=== PATIENT | female | born 1935 | race Two or more races ===

== ENCOUNTER 2019-07-25 12:01 | Inpatient (IN) | payer MEDICARE ==
--- NOTE | 2019-07-25 12:35 | ED ---
General Adult HPI - General Chief complaint: Extremity Injury, Lower Stated complaint: LE pain Time Seen by Provider: 07/25/19 12:01 Source: patient, RN notes reviewed Mode of arrival: ambulatory Limitations: no limitations - History of Present Illness Initial comments: This 84-year-old female with a history of multiple medical issues including hypertension congestive heart failure diabetes chronic A. fib without blood thinners hypothyroidism schizophrenia obesity anemia who was found at about 8:00 this morning have a cold left lower extremity. She was to be treated as a no code and no hospitalization with family requested that she be sent in for evaluation. Patient states the pain and events as he started last evening some time. The patient denies any fevers chills nausea vomiting sweats she does have 3/10 pain in the left lower extremity. She was found per paramedics to have cold skin from the knee down to the toes with mottled appearance of the skin. The right lower extremity is warm with full movement and pulses. There is a staff did discuss the events with the patient's who has requested that she be evaluated. I did discuss this with both Dr. Arellano and Dr. Ordoñez. The initial plan will be for a CT angio of the left lower extremity is questionable whether the patient is a candidate for surgical intervention at this time. - Related Data Home Medications Medication Instructions Recorded Confirmed ARIPiprazole [Abilify] 2 mg PO DAILY@0800 07/25/19 07/25/19 ARIPiprazole [Abilify] 5 mg PO DAILY@0800 07/25/19 07/25/19 Acetaminophen Tab [Tylenol Tab] 500 mg PO BID PRN 07/25/19 07/25/19 Artificial Tears-Hypromellose 1 drop BOTH EYES TID@0800,1200,1700 07/25/19 07/25/19 [Artificial Tear Drops] Bisacodyl [Dulcolax] 10 mg RECTAL DAILY PRN 07/25/19 07/25/19 Ergocalciferol (Vitamin D2) 50,000 unit PO Q14D 07/25/19 07/25/19 [Drisdol] Furosemide [Lasix] 40 mg PO BID@0800,1700 07/25/19 07/25/19 L.acidoph,Paracasei, B.lactis 1 cap PO DAILY@0800 07/25/19 07/25/19 [Probiotic] Levothyroxine Sodium 125 mcg PO DAILY@0800 07/25/19 07/25/19 Loratadine 10 mg PO DAILY@0800 07/25/19 07/25/19 Magnesium Hydroxide [Milk of 7,200 mg PO Q48H PRN 07/25/19 07/25/19 Magnesia Concentrate] Metoprolol Tartrate [Lopressor] 50 mg PO BID@0800,1700 07/25/19 07/25/19 Na Phos,M-B/Na Phos,Di-Ba [Fleet 133 ml RECTAL DAILY PRN 07/25/19 07/25/19 Adult] Olopatadine HCl [Patanol] 1 drop BOTH EYES BID@0800,1700 07/25/19 07/25/19 Oyster Shell Calcium 500mg 500 mg PO DAILY@0800 07/25/19 07/25/19 Potassium Chloride 10 meq PO DAILY@0800 07/25/19 07/25/19 Allergies Allergy/AdvReac Type Severity Reaction Status Date / Time erythromycin base Allergy Unknown Verified 07/25/19 12:45 [From Erythrocin] levofloxacin [From Levaquin] Allergy Unknown Verified 07/25/19 12:45 Penicillins Allergy Unknown Verified 07/25/19 12:45 Review of Systems ROS Statement: Those systems with pertinent positive or pertinent negative responses have been documented in the HPI. ROS Other: All systems not noted in ROS Statement are negative. Past Medical History Past Medical History: Heart Failure, COPD, Dementia, Hypertension, Thyroid Disorder History of Any Multi-Drug Resistant Organisms: MRSA Date of last positivie culture/infection: 10/10/16 MDRO Source:: back Past Surgical History: Joint Replacement Additional Past Surgical History / Comment(s): R hip Smoking Status: Never smoker Past Alcohol Use History: None Reported Past Drug Use History: None Reported General Exam - General Exam Comments Initial Comments: This is a well-developed obese female who is awake alert oriented 3 Limitations: no limitations General appearance: alert, in no apparent distress Head exam: Present: atraumatic, normocephalic, normal inspection Eye exam: Present: normal appearance, PERRL, EOMI. Absent: scleral icterus, conjunctival injection, periorbital swelling ENT exam: Present: normal exam, mucous membranes moist Neck exam: Present: normal inspection, full ROM, other (No stridor JVD or bruits). Absent: tenderness, meningismus, lymphadenopathy Respiratory exam: Present: normal lung sounds bilaterally. Absent: respiratory distress, wheezes, rales, rhonchi, stridor Cardiovascular Exam: Present: irregular rhythm. Absent: systolic murmur, diastolic murmur, rubs, gallop, clicks GI/Abdominal exam: Present: soft, normal bowel sounds. Absent: distended, tenderness, guarding, rebound, rigid Extremities exam: Present: tenderness, other (Capillary refill in the left lower extremity no pulses are palpable or obtained with Doppler. Is a thready femoral pulse on the left. Skin is mottled and cold to touch from just above the knee down to the toes. Toes are dusky.). Absent: pedal edema, joint swelling, calf tenderness Back exam: Present: normal inspection Neurological exam: Present: alert, oriented X3, CN II-XII intact Psychiatric exam: Present: normal affect, normal mood Skin exam: Present: warm, dry, intact, normal color. Absent: rash Course Vital Signs 07/25/19 12:05 Temperature 98.7 F Pulse Rate 100 Respiratory 18 Rate Blood Pressure 180/122 O2 Sat by Pulse 95 Oximetry - Reevaluation(s) Reevaluation #1: 07/25/19 14:26 The patient was seen in the emergency department by Dr. Ordoñez. CAT scan does show evidence of a left iliac occlusion. He did discuss the case with family members. Patient will be taken the operating room for an embolectomy. Dr. Arellano will be notified EKG Findings - EKG Results: EKG: interpreted by CHAYO (Atrial fibrillation rate of 95 QRS 82 QT since QTC 318/[address] configuration) Medical Decision Making - Lab Data Result diagrams: 07/25/19 12:21 07/25/19 12:21 Lab Results 07/25/19 07/25/19 07/25/19 Range/Units 12:21 12:21 12:21 WBC 9.8 (3.8-10.6) k/uL RBC 5.12 (3.80-5.40) m/uL Hgb 14.7 (11.4-16.0) gm/dL Hct 46.5 H (34.0-46.0) % MCV 90.8 (80.0-100.0) fL MCH 28.8 (25.0-35.0) pg MCHC 31.7 (31.0-37.0) g/dL RDW 13.6 (11.5-15.5) % Plt Count 197 (150-450) k/uL Neutrophils % 89 % Lymphocytes % 6 % Monocytes % 4 % Eosinophils % 0 % Basophils % 0 % Neutrophils # 8.8 H (1.3-7.7) k/uL Lymphocytes # 0.6 L (1.0-4.8) k/uL Monocytes # 0.3 (0-1.0) k/uL Eosinophils # 0.0 (0-0.7) k/uL Basophils # 0.0 (0-0.2) k/uL Sodium 138 (137-145) mmol/L Potassium 4.6 (3.5-5.1) mmol/L Chloride 95 L (98-107) mmol/L Carbon Dioxide 35 H (22-30) mmol/L Anion Gap 8 mmol/L BUN 22 H (7-17) mg/dL Creatinine 0.96 (0.52-1.04) mg/dL Est GFR (CKD-EPI)AfAm 64 (>60 ml/min/1.73 sqM) Est GFR (CKD-EPI)NonAf 55 (>60 ml/min/1.73 sqM) Glucose 140 H (74-99) mg/dL Plasma Lactic Acid Fletcher (0.7-2.0) mmol/L Calcium 9.3 (8.4-10.2) mg/dL Magnesium 2.3 (1.6-2.3) mg/dL Total Bilirubin 0.7 (0.2-1.3) mg/dL AST 47 H (14-36) U/L ALT 21 (4-34) U/L Alkaline Phosphatase 104 (38-126) U/L NT-Pro-B Natriuret Pep 3510 pg/mL Total Protein 7.1 (6.3-8.2) g/dL Albumin 4.0 (3.5-5.0) g/dL 07/25/19 Range/Units 12:21 WBC (3.8-10.6) k/uL RBC (3.80-5.40) m/uL Hgb (11.4-16.0) gm/dL Hct (34.0-46.0) % MCV (80.0-100.0) fL MCH (25.0-35.0) pg MCHC (31.0-37.0) g/dL RDW (11.5-15.5) % Plt Count (150-450) k/uL Neutrophils % % Lymphocytes % % Monocytes % % Eosinophils % % Basophils % % Neutrophils # (1.3-7.7) k/uL Lymphocytes # (1.0-4.8) k/uL Monocytes # (0-1.0) k/uL Eosinophils # (0-0.7) k/uL Basophils # (0-0.2) k/uL Sodium (137-145) mmol/L Potassium (3.5-5.1) mmol/L Chloride (98-107) mmol/L Carbon Dioxide (22-30) mmol/L Anion Gap mmol/L BUN (7-17) mg/dL Creatinine (0.52-1.04) mg/dL Est GFR (CKD-EPI)AfAm (>60 ml/min/1.73 sqM) Est GFR (CKD-EPI)NonAf (>60 ml/min/1.73 sqM) Glucose (74-99) mg/dL Plasma Lactic Acid Fletcher 2.1 H* (0.7-2.0) mmol/L Calcium (8.4-10.2) mg/dL Magnesium (1.6-2.3) mg/dL Total Bilirubin (0.2-1.3) mg/dL AST (14-36) U/L ALT (4-34) U/L Alkaline Phosphatase (38-126) U/L NT-Pro-B Natriuret Pep pg/mL Total Protein (6.3-8.2) g/dL Albumin (3.5-5.0) g/dL Critical Care Time Critical Care Time: Yes Critical Care Time: 45 minutes of critical care time which includes initial presentation with history physical labs x-rays review of old charting is available discussed with Dr. Ordoñez as well as Dr. Arellano multiple reevaluation is of the patient. Some admission orders documentation of the above Disposition Clinical Impression: Iliac artery occlusion, left, Dehydration, Hypertension, Chronic atrial fibrillation Disposition: ADMITTED IP TO THIS [facility] Condition: Serious Referrals: Miky Arellano MD [Primary Care Provider] - 1-2 days
[2019-07-25] MEDS ORDERED: RX INFO: IV CONTRAST WAS GIVEN 1 EACH MISC MISCELLANE PRN (12:41)
[2019-07-25 12:48] LABS: Basophils % (A) 0 %; Eosinophils % (A) 0 %; HCT 46.5 % (34.0-46.0); HGB 14.7 gm/dL (11.4-16.0); Lymphocytes # (A) 0.6 k/uL (1.0-4.8); Lymphocytes % (A) 6 %; MCH 28.8 pg (25.0-35.0); MCHC 31.7 g/dL (31.0-37.0); MCV 90.8 fL (80.0-100.0); Mean Platelet Volume 10.1; Monocytes # (A) 0.3 k/uL (0-1.0); Monocytes % (A) 4 %; Neutrophils # (A) 8.8 k/uL (1.3-7.7); Neutrophils % (A) 89 %; Platelet Count 197 k/uL (150-450); RBC 5.12 m/uL (3.80-5.40); RDW 13.6 % (11.5-15.5); WBC 9.8 k/uL (3.8-10.6)
[2019-07-25 12:54] LABS: Calcium 9.3 mg/dL (8.4-10.2); Magnesium 2.3 mg/dL (1.6-2.3); Potassium 4.6 mmol/L (3.5-5.1); Total Bilirubin 0.7 mg/dL (0.2-1.3); Total Protein 7.1 g/dL (6.3-8.2)
[2019-07-25] MEDS ORDERED: SODIUM CHLORIDE 0.9% 1,000 ML IV STA (14:13)
[2019-07-25] MEDS ORDERED: SODIUM CHLORIDE 0.9% 500 ML 500 ML IV STA (14:25)
[2019-07-25] MEDS ORDERED: NALOXONE 0.4 MG/ML 1 ML VIAL IV PRN (14:31)
[2019-07-25] MEDS ORDERED: LACTATED RINGERS 1,000 ML IV ONE (14:36)
[2019-07-25] MEDS ORDERED: VANCOMYCIN 1,750 MG in SODIUM CHLORIDE 0.9% 500 ML 500 ML IVPB STA (14:41)
[2019-07-25] MEDS ORDERED: METOPROLOL TARTRATE 5 MG/5 ML VIAL IVP STA (14:55)
--- NOTE | 2019-07-25 15:07 | CT ---
EXAMINATION TYPE: CT angio lower extremity LT DATE OF EXAM: 07/25/2019 COMPARISON: HISTORY: Left lower extremity, cold and mottled CT DLP: 3213.9 mGycm Automated exposure control for dose reduction was used. CONTRAST: Performed with IV Contrast, patient injected with 100 mL of Isovue 370. Multiple axial sections were obtained from the level of the iliac crest to the bottom of the feet wit hout and subsequently with intravenous contrast. There are 3-D post processed images. There is arterial flow demonstrated in the lower abdominal aorta which has fairly normal diameter. Th ere is complete occlusion of the left proximal common iliac artery with thrombus. There is patency of the right internal and external iliac artery and right common iliac artery. There is right-sided pat ency of the femoral artery and popliteal artery. There is plaque formation focally in the right femor al artery with 50% stenosis. There is right-sided patency of the tibial artery and the tibial artery trifurcation. There is variable plaque in the right posterior tibial artery. There is arterial flow i n the dorsalis pedis artery on the right side as well as the right posterior tibial artery at the oswaldo t. Exam does not show any significant arterial flow in the left leg below the hip joint. There is left knee prosthesis that appears in good position. I see no focal bone destruction. There i s no evidence of a soft tissue mass. There is sigmoid diverticulosis without evidence of diverticulitis. There is no free fluid in the pel vis. Bladder distends smoothly. There is no evidence of a pelvic mass. There is vertebroplasty of the L5 vertebral body. IMPRESSION: Complete occlusion of the left common iliac artery without evidence of any significant distal arteria l flow in the left leg.
--- NOTE | 2019-07-25 15:22 | P.CON ---
Consult Note - . Consult date: 07/25/19 Assessment/Plan:: Patient is an 84-year-old female who presents today for evaluation in reference to a chief complaint of discoloration and pain of the left lower extremity. Patient lives and extended care facility and was brought to the emergency room after she became aware of discoloration and pain in her leg. The patient denies any previous similar symptoms. Patient does have a history of atrial fibrillation on a chronic basis. She is not on anticoagulation. She denied any previous similar symptoms. Past social history: Unremarkable for tobacco or alcohol use. ALLERGIES: Are to erythromycin Levaquin and penicillin. Medications at this time: Abilify, Lasix, thyroid supplementation, milk of magnesia, low pressure, potassium chloride, Patanol. Social history: Hip replacement. EKG demonstrates rate controlled atrial fibrillation Labs are reviewed and are essentially unremarkable. Physical examination revealed a female who appeared her stated age who is alert cooperative in no significant distress. Vitals: Patient is afebrile vital signs are stable. Physical examination: Neck: Supple free of adenopathy or bruit. Heart: Irregular rate/rhythm. Lungs: Clear to auscultation bilaterally. Abdomen: Soft with normoactive bowel sounds. There is no palpable tenderness. No abdominal wall hernia noted. Extremities: Femoral and popliteal pulses are noted on the right while the dorsalis pedis and posterior tibial pulses are absent on the right. On the left all pulses are absent. Some early mottling of the foot and calf level are noted although the calf remains soft and not tender to palpation for the patient. The patient can move her foot however is unable to move her toes. Decreased since her alphonse examination is noted on the left. CTA was performed and the films were reviewed. This demonstrates an occlusion o f her ileal femoral popliteal system on the left which I's clinically suspected be secondary to embolism secondary to cardiac dysrhythmia. Impression: #1 embolic occlusion left iliofemoral popliteal system with secondary arterial insufficiency of the left lower extremity. #2: Chronic / persistent atrial fibrillation. #3: History of hypothyroidism. Plan: Did speak with the patient's daughter Latisha and review the findings of both the physical examination and radiographs. We discussed lumpectomy/embolectomy of the left iliac and femoral system as well as potential risk and benefits. I believe the patient would require amputation if no surgical intervention is performed. All questions were answered to satisfaction of Latisha and her father (patient's spouse). The operative team has been called in for proposed surgical procedure.
[2019-07-25] MEDS ORDERED: PROPOFOL 10 MG/ML 20 ML VIAL IV ONE (15:46)
[2019-07-25] MEDS ORDERED: PHENYLEPHRINE-0.9% NACL SYG 1 MG/10 ML SYRINGE ONE (15:46)
[2019-07-25] MEDS ORDERED: fentaNYL (PF) 50 MCG/ML 2 ML AMP ONE (15:46)
[2019-07-25] MEDS ORDERED: ROCURONIUM BROMIDE 10 MG/ML 5 ML VIAL IV ONE (15:46)
[2019-07-25] MEDS ORDERED: GLYCOPYRROLATE 0.2 MG/ML 2 ML VIAL ONE (15:46)
[2019-07-25] MEDS ORDERED: SUCCINYLCHOLINE CHLORIDE 100 MG/5 ML SYR IV ONE (15:46)
[2019-07-25] MEDS ORDERED: MIDAZOLAM 2 MG/2 ML VIAL ONE (15:46)
[2019-07-25] MEDS ORDERED: NEOSTIGMINE 1 MG/ML 10 ML VIAL ONE (15:46)
[2019-07-25] MEDS ORDERED: LIDOCAINE 1% INJ 10MG/ML (20 ML MDV) ONE (15:46)
[2019-07-25] MEDS ORDERED: ePHEDrine SULFATE/0.9% NACL/PF 50 MG/5 ML SYRINGE IV ONE (15:46)
[2019-07-25] MEDS ORDERED: IV FLUID CONTINUATION 900 ML IV ONE (15:57)
[2019-07-25] MEDS ORDERED: HEPARIN SODIUM,PORCINE 10,000 UNIT in SODIUM CHLORIDE 0.9% 1,000 ML IRRIGATION ONE (16:48)
[2019-07-25] MEDS ORDERED: BISACODYL 10 MG SUPP RECTAL PRN (17:46)
[2019-07-25] MEDS ORDERED: ACETAMINOPHEN TAB 500 MG TAB PO PRN (17:46)
[2019-07-25] MEDS ORDERED: MAGNESIUM HYDROXIDE 2,400 MG/10 ML CUP PO PRN (17:46)
[2019-07-25] MEDS ORDERED: NA PHOS,M-B/NA PHOS,DI-BA 133 ML ENEMA RECTAL PRN (17:46)
[2019-07-25] MEDS ORDERED: HEPARIN SODIUM,PORCINE 5,000 UNIT/ML 1 ML VIAL IV ONE (18:00)
[2019-07-25] MEDS ORDERED: HEPARIN SODIUM,PORCINE 5,000 UNIT/ML 1 ML VIAL IV PRN (18:00)
--- NOTE | 2019-07-25 18:09 | P.OP ---
Date of Procedure: 07/25/19 Preoperative Diagnosis: Embolic occlusion left iliac and femoral arterial segment Postoperative Diagnosis: Same. Procedure(s) Performed: Embolectomy left common external iliac as well as the left common femoral, profundus femoris and superficial femoral arterial segments. Implants: None. Anesthesia: GETA Surgeon: Unruly Sofia Estimated Blood Loss (ml): 50 IV fluids (ml): 400 Urine output (ml): 250 Pathology: other (Embolus) Condition: stable Disposition: ICU Indications for Procedure: Embolic occlusion left iliofemoral arterial segments Operative Findings: Embolic occlusion left iliac and femoral segments Description of Procedure: Indications: Patient is an 10-year-old female who had presented to the emergency room with a history of left lower extremity pain and discoloration. Physical examination revealed absent femoral, popliteal and pedal pulses on the left wall on the right femoral popliteal pulses were noted. Decreased motor and sensory function was noted in the left leg with some mottling of the foot and calf noted. Patient did undergo CT angiogram which demonstrated occlusion of the left common and external iliac segments as well as the left common, profundus and superficial femoral arterial segments. Patient is known to be in atrial fibrillation and is not on anticoagulation. It was felt that this was embolic event. This was discussed the patient's family and recommendation was made for embolectomy. The procedure, risk and benefits were discussed and the family wished to proceed. Description of procedure and findings: Patient was brought the upper and placed in supine position Mr. general endotracheal anesthesia delivered by the department anesthesiology. Harmon catheter is placed to gravity drainage. The patient received 1 g of vancomycin intravenously in the perioperative phase for prophylactic antibiotic purposes. The lower abdominal segment as well as inguinal and anterior thigh areas bilater ally were sterilely prepped and draped in usual manner. Skin incision was made over the left femoral artery carried down through the subcu change tissues. Hemostasis was achieved using electrocautery. Lymphatic layer was divided laterally swept medially exposing the femoral sheath. This was incised. The femoral artery was identified and dissected free of investing tissues. The origin of the superficial femoral and profundus femoris arteries were dissected free of investing tissues and encircled Vesseloops. Vesseloops were then placed about the common femoral artery. Patient was systemically heparinized and ACT was drawn and found to be 302. Vesseloops were drawn closed and a transverse arteriotomy in the distal common femoral artery was performed. Thrombus was noted at that site. A 5-Macedonian Sandeep catheter was utilized to first thrombectomized the iliac segment. Multiple passes were made and excellent pulsatile flow was then noted. The Sandeep catheter was then placed down the profundus femoris as well as the superficial femoral arterial segments. Thrombus was retrieved from both segments and when this was performed good backbleeding was noted through both segments. The profundus and official femoral arterial segments were flushed with heparinized saline solution. The arteriotomy was closed with 5-0 Prolene suture placed in simple interrupted form. Just prior to completion of the anastomotic line backbleeding through the profundus and superficial segments was allowed to occur in the common femoral was flushed. No thrombus was retrieved and any instance. The arterial closure was completed and flow restored through the common first into the profundus and then into the superficial femoral arterial segment. Excellent pulse was then identified within both the profundus and superficial segments. The wound was irrigated. Bleeding was controlled. Deep tissues were closed in multiple layers with 3-0 Vicryl. Dermis was closed with 4-0 Vicryl and skin edges were reapproximated using skin kelvin. Proper dressing was applied. Patient tolerated procedure well and was transferred to the recovery area satisfactory and stable condition. The left lower extremity was normally pink in color at the completion of the case.
[2019-07-25 18:30] LABS: Glucose,Whole Blood 164 mg/dL (75-99)
[2019-07-25 18:55] LABS: ABG Base Excess 7.6 mmol/L; ABG HCO3 33 mmol/L (21-25); ABG PCO2 56 mmHg (35-45); ABG PH 7.38 (7.35-7.45); ABG PO2 276 mmHg (83-108); ABG TCO2 35 mmol/L (19-24); Allen Test Performed? Yes
[2019-07-25] MEDS ORDERED: SODIUM CHLORIDE 0.9% 1,000 ML IV ONE (19:09)
[2019-07-25 19:34] LABS: Basophils % (A) 0 %; Eosinophils % (A) 0 %; HCT 41.4 % (34.0-46.0); HGB 13.3 gm/dL (11.4-16.0); Lymphocytes # (A) 0.7 k/uL (1.0-4.8); Lymphocytes % (A) 8 %; MCH 29.2 pg (25.0-35.0); MCV 91.1 fL (80.0-100.0); Mean Platelet Volume 10.1; Monocytes # (A) 0.4 k/uL (0-1.0); Monocytes % (A) 4 %; Neutrophils # (A) 7.3 k/uL (1.3-7.7); Neutrophils % (A) 87 %; Platelet Count 175 k/uL (150-450); RBC 4.54 m/uL (3.80-5.40); RDW 13.5 % (11.5-15.5); WBC 8.4 k/uL (3.8-10.6)
--- NOTE | 2019-07-25 19:41 | XR ---
EXAMINATION TYPE: XR chest 1V portable DATE OF EXAM: 07/25/2019 COMPARISON: NONE HISTORY: Check tube placement TECHNIQUE: Single view FINDINGS: There is endotracheal tube there is 3.2 cm from the taylor. There is nasogastric tube in th e stomach. There is mild patchy bilateral pulmonary infiltrates. There is no definite pleural effusio n. There are chest leads. There is probably a hiatal hernia. IMPRESSION: Endotracheal tube in good position. Mild bilateral pulmonary infiltrates. Mild heart fail ure not entirely excluded.
[2019-07-25 19:55] LABS: INR 1.1 (<1.2); Partial Thromboplastin Time 49.2 sec (22.0-30.0)
[2019-07-25] MEDS ORDERED: INSULIN ASPART (NovoLOG) 100 UNIT/ML VIAL SQ SCH (20:00)
[2019-07-25] MEDS: NOREPINEPHRINE 4 MG in SODIUM CHLORIDE 0.9% 250 ML IV SCH (21:22)
[2019-07-25] MEDS: HEPARIN SOD,PORK IN 0.45% NACL 25,000 UNIT in 0.45% NACL 1 250ML.BAG IV SCH (21:23)
[2019-07-25] MEDS: CHLORHEXIDINE GLUCONATE 15 ML CUP MUCOUS MEM SCH (21:48)
[2019-07-26] MEDS: LACTATED RINGERS 1,000 ML IV SCH ×3 (00:35→21:52)
[2019-07-26 00:40] LABS: Glucose,Whole Blood 158 mg/dL (75-99)
[2019-07-26] MEDS: INSULIN ASPART (NovoLOG) 100 UNIT/ML VIAL SQ SCH ×4 (00:43→18:34)
[2019-07-26] MEDS: PROPOFOL 1,000 MG in EMPTY BAG 1 BAG IV SCH ×3 (04:51→08:46)
[2019-07-26 05:19] LABS: Basophils % (A) 0 %; Eosinophils # (A) 0.1 k/uL (0-0.7); Eosinophils % (A) 1 %; HCT 40.8 % (34.0-46.0); Lymphocytes # (A) 1.4 k/uL (1.0-4.8); Lymphocytes % (A) 15 %; MCH 28.9 pg (25.0-35.0); MCHC 31.7 g/dL (31.0-37.0); MCV 91.1 fL (80.0-100.0); Mean Platelet Volume 10.6; Monocytes # (A) 0.4 k/uL (0-1.0); Monocytes % (A) 4 %; Neutrophils # (A) 7.3 k/uL (1.3-7.7); Neutrophils % (A) 79 %; Platelet Count 166 k/uL (150-450); RBC 4.48 m/uL (3.80-5.40); RDW 13.6 % (11.5-15.5); WBC 9.2 k/uL (3.8-10.6)
[2019-07-26 06:06] LABS: Calcium 8.4 mg/dL (8.4-10.2); Potassium 3.6 mmol/L (3.5-5.1)
--- NOTE | 2019-07-26 06:42 | XR ---
EXAMINATION TYPE: XR chest 1V portable DATE OF EXAM: 07/26/2019 HISTORY: Tube placement. REFERENCE: Previous study dated 07/25/2019. FINDINGS: The study is rotated. The patient is ET tube and NG tube remain in place, unchanged in appe arance. There is a previous interpedicular fusion of the lower lumbar spine. The heart is enlarged. There is vascular congestion and pulmonary edema. There is blunting of both CP angles. I cannot exclude small effusions. IMPRESSION: CONTINUING CHANGES OF CONGESTIVE HEART FAILURE.
[2019-07-26] MEDS ORDERED: Potassium Replacement Protocol 1 EACH MISC MISCELLANE PRN (06:58)
[2019-07-26 07:15] LABS: Glucose,Whole Blood 125 mg/dL (75-99)
[2019-07-26 08:03] LABS: ABG HCO3 31 mmol/L (21-25); ABG Oxygen Saturation 97.7 % (94-97); ABG PCO2 39 mmHg (35-45); ABG PH 7.51 (7.35-7.45); ABG PO2 89 mmHg (83-108); ABG TCO2 32 mmol/L (19-24)
[2019-07-26 08:06] LABS: Allen Test Performed? no
[2019-07-26] MEDS: NOREPINEPHRINE 4 MG in SODIUM CHLORIDE 0.9% 250 ML IV SCH ×2 (08:46→19:33)
[2019-07-26] MEDS: POTASSIUM CHLORIDE 10 MEQ in WATER FOR INJECTION 1 100ML.BAG IVPB SCH ×2 (08:47→09:59)
[2019-07-26] MEDS: ARIPiprazole 5 MG TAB PO SCH (08:47)
[2019-07-26] MEDS: ARIPiprazole 2 MG TAB PO SCH (08:48)
[2019-07-26] MEDS: CALCIUM CARBONATE 500 MG CHEWABLE PO SCH (08:48)
[2019-07-26] MEDS: METOPROLOL TARTRATE 50 MG TAB PO SCH ×3 (08:48→21:41)
[2019-07-26] MEDS: POTASSIUM CHLORIDE ER 10 MEQ TAB.ER.PRT PO SCH (08:48)
[2019-07-26] MEDS: LEVOTHYROXINE 125 MCG TAB PO SCH (08:48)
[2019-07-26] MEDS: LACTOBACILLUS ACIDOPH & BULGAR 1 EACH PACKET PO SCH (08:48)
[2019-07-26] MEDS: KETOTIFEN 0.025% OPHTH DROPS 5 ML BTL BOTH EYES SCH ×2 (08:49→18:34)
[2019-07-26] MEDS: ARTIFICIAL TEARS-HYPROMELLOSE DROPS 15 ML BTL BOTH EYES SCH ×3 (08:49→18:34)
[2019-07-26] MEDS: LORATADINE 10 MG TAB PO SCH (08:49)
[2019-07-26] MEDS: CHLORHEXIDINE GLUCONATE 15 ML CUP MUCOUS MEM SCH (08:49)
--- NOTE | 2019-07-26 10:54 | P.HPIM ---
History of Present Illness H&P Date: 07/25/19 Chief Complaint: Left iliac artery occlusion, cold leg, A. fib with RVR nons ustained, hypoth 84-year-old female one of my patient in [facility] for the last 5 years with past medical history of mild CHF systolic dysfunction, recurrent UTI, COPD, advanced dementia, and hypothyroidism who was seen this last week for Route monthly around was doing well she developed to have an acute pain and discomfort in the left leg for few hours earlier and a blood to have cold foot and leg was suspected to be arterial thrombus patient was sent to [facility] was tested and seen by vascular and agree that she had iliac and femoral occlusion as a thrombus in the left side patient be taken to the OR by vascular for thrombectomy in the meanwhile she is doing slightly but better found to have A. fib with RVR nonsustained never been diagnosed and treated for the past she is not a good candidate for an anticoagulation as a long-term. Patient will be hospitalized after procedure for the above problem. Review of Systems CONSTITUTIONAL: Well-developed no acute respiratory distress. Morbidly obese EYES: No icterus sclerae, no conjunctivitis. EARS, NOSE, MOUTH, THROAT, and FACE: No sore throat, lymphadenopathy, carotid bruits or deformity. RESPIRATORY: Mild shortness of breath no cough or wheezes. CARDIOVASCULAR: Positive PND orthopnea palpitations with new onset of A. fib with pulse rate running in the 70s. GASTROINTESTINAL: No Abd pain, Nausea or vomiting, no Diarrhea or constipation, No GI Bleed, no distention or masses. GENITOURINARY: Negative for Hematuria or UTI, no kidney stones. Recurrent incontinence with recurrent UTI with no recent infection. INTEGUMENT/BREAST: Negative for any muscular injury with mild osteoarthritis.. HEMATOLOGIC/LYMPHATIC: Negative for bleed or purpura. MUSCULOSKELTAL: Negative for Myalgia or arthralgia. NEURLOGICAL: No LOC, Sz or syncope, blurred vision dizziness or abnormality.. Significant memory loss and dementia. BEHAVIORAL/PSYCH: Negative. ENDOCRINE: Negative. Past Medical History Past Medical History: Heart Failure, COPD, Dementia, Hypertension, Thyroid Disorder History of Any Multi-Drug Resistant Organisms: MRSA Date of last positivie culture/infection: 10/10/16 MDRO Source:: back Past Surgical History: Joint Replacement Additional Past Surgical History / Comment(s): R hip Past Anesthesia/Blood Transfusion Reactions: No Reported Reaction Past Psychological History: Schizophrenia Smoking Status: Never smoker Past Alcohol Use History: None Reported Past Drug Use History: None Reported Medications and Allergies Home Medications Medication Instructions Recorded Confirmed Type ARIPiprazole [Abilify] 2 mg PO DAILY@0800 07/25/19 07/25/19 History ARIPiprazole [Abilify] 5 mg PO DAILY@0800 07/25/19 07/25/19 History Acetaminophen Tab [Tylenol Tab] 500 mg PO BID PRN 07/25/19 07/25/19 History Artificial Tears-Hypromellose 1 drop BOTH EYES TID@0800,1200,1700 07/25/19 07/25/19 History [Artificial Tear Drops] Bisacodyl [Dulcolax] 10 mg RECTAL DAILY PRN 07/25/19 07/25/19 History Ergocalciferol (Vitamin D2) 50,000 unit PO Q14D 07/25/19 07/25/19 History [Drisdol] Furosemide [Lasix] 40 mg PO BID@0800,1700 07/25/19 07/25/19 History L.acidoph,Paracasei, B.lactis 1 cap PO DAILY@0800 07/25/19 07/25/19 History [Probiotic] Levothyroxine Sodium 125 mcg PO DAILY@0800 07/25/19 07/25/19 History Loratadine 10 mg PO DAILY@0800 07/25/19 07/25/19 History Magnesium Hydroxide [Milk of 7,200 mg PO Q48H PRN 07/25/19 07/25/19 History Magnesia Concentrate] Metoprolol Tartrate [Lopressor] 50 mg PO BID@0800,1700 07/25/19 07/25/19 History Na Phos,M-B/Na Phos,Di-Ba [Fleet 133 ml RECTAL DAILY PRN 07/25/19 07/25/19 History Adult] Olopatadine HCl [Patanol] 1 drop BOTH EYES BID@0800,1700 07/25/19 07/25/19 Hi story Oyster Shell Calcium 500mg 500 mg PO DAILY@0800 07/25/19 07/25/19 History Potassium Chloride 10 meq PO DAILY@0800 07/25/19 07/25/19 History Allergies Allergy/AdvReac Type Severity Reaction Status Date / Time erythromycin base Allergy Unknown Verified 07/25/19 12:45 [From Erythrocin] levofloxacin [From Levaquin] Allergy Unknown Verified 07/25/19 12:45 Penicillins Allergy Unknown Verified 07/25/19 12:45 Physical Exam Vitals: Vital Signs Temp Pulse Resp BP Pulse Ox 07/26/19 10:00 91 16 97 07/26/19 09:30 85 16 96 07/26/19 09:00 85 16 95 07/26/19 08:30 79 16 97 07/26/19 08:00 96.9 F L 69 16 97 07/26/19 07:30 64 16 97 07/26/19 07:00 58 L 16 95 07/26/19 06:45 63 16 95 07/26/19 06:30 62 16 95 07/26/19 06:15 73 16 94 L 07/26/19 06:00 71 16 94 L 07/26/19 05:45 75 16 94 L 07/26/19 05:30 71 16 96 07/26/19 05:15 77 16 96 07/26/19 05:00 80 16 97 07/26/19 04:45 73 16 96 07/26/19 04:30 79 16 95 07/26/19 04:15 82 16 96 07/26/19 04:00 78 16 97 07/26/19 03:45 73 16 96 07/26/19 03:30 63 16 96 07/26/19 03:15 61 16 96 07/26/19 03:00 57 L 16 96 07/26/19 02:45 60 16 96 07/26/19 02:30 61 16 96 07/26/19 02:15 63 16 96 07/26/19 02:00 69 16 96 07/26/19 01:45 69 16 96 07/26/19 01:30 73 16 97 07/26/19 01:15 74 16 96 07/26/19 01:00 73 16 96 07/26/19 00:45 90 18 95 07/26/19 00:30 77 16 95 07/26/19 00:15 79 16 96 07/26/19 00:00 73 16 96 07/25/19 23:45 61 16 97 07/25/19 23:30 61 16 97 07/25/19 23:15 61 16 98 07/25/19 23:00 60 16 97 07/25/19 22:45 60 16 98 07/25/19 22:30 62 16 97 07/25/19 22:15 64 16 98 07/25/19 22:00 60 16 98 07/25/19 21:45 63 16 97 07/25/19 21:30 57 L 16 98 07/25/19 21:15 75 16 96 07/25/19 21:00 75 16 92 L 07/25/19 20:45 68 16 96 07/25/19 20:30 64 16 96 07/25/19 20:15 76 16 96 07/25/19 20:00 75 18 96 07/25/19 19:45 72 16 96 07/25/19 19:30 75 16 96 07/25/19 19:15 76 16 95 07/25/19 19:00 68 16 99 07/25/19 15:14 92 18 160/110 07/25/19 15:00 108 H 18 167/125 94 L 07/25/19 12:05 98.7 F 100 18 180/122 95 Intake and Output 07/25/19 07/26/19 07/26/19 22:59 06:59 14:59 Intake Total 1121.544 695.596 694.191 Output Total 500 265 175 Balance 621.544 430.596 519.191 Intake: IV 1116 600 500 Lactated Ringers 1,000 ml 115 600 300 @ 75 mls/hr IV .[id number] MIKE Rx#:[id number] Potassium Chloride 10 meq 200 In Water For Injection 1 100ml.bag @ 100 mls/hr IVPB Q1H MIKE Rx#: [id number] Intake, IV Titration 5.544 95.596 194.191 Amount Norepinephrine 4 mg In 5.544 111.07 Sodium Chloride 0.9% 250 ml @ 0.05 MCG/KG/MIN 21. 602 mls/hr IV .[id number] MIKE Rx#:[id number] Propofol 1,000 mg In 95.596 83.121 Empty Bag 1 bag @ Titrate IV .Q0M MIKE Rx#: [id number] Output: Urine 450 265 175 Estimated Blood Loss 50 Other: Voiding Method Indwelling Catheter Indwelling Catheter Indwelling Catheter Weight 113.398 kg 109 kg ABP, PAP, CO, CI - Last 8 Hours Arterial Blood Pressure 110/60 Arterial Blood Pressure 111/57 Arterial Blood Pressure 79/44 Arterial Blood Pressure 123/64 Arterial Blood Pressure 143/66 Arterial Blood Pressure 157/78 Arterial Blood Pressure 115/57 Arterial Blood Pressure 103/50 Arterial Blood Pressure 102/53 Arterial Blood Pressure 93/51 Arterial Blood Pressure 89/46 Arterial Blood Pressure 79/43 Arterial Blood Pressure 91/47 Arterial Blood Pressure 101/53 Arterial Blood Pressure 125/59 Arterial Blood Pressure 128/66 Arterial Blood Pressure 136/71 Arterial Blood Pressure 148/72 Arterial Blood Pressure 143/74 Arterial Blood Pressure 139/69 Arterial Blood Pressure 142/78 Arterial Blood Pressure 120/58 Arterial Blood Pressure 112/57 General Appearance: Alert, cooperative, no distress, appears stated age. Morbidly obese laying in bed doesn't look much pain. Neck HEENT: Supple, no lymphadenopathy, no thyroid enlargement, no carotid bruits. Lungs: Decreased breath sound bilaterally with fine rhonchi no crackles or wheezes. Chest Wall: Decrease expansion with deep inspiration no tenderness and no deformity was found on exam, no costochondral pain or discomfort. Heart: Irregular Rhythm and rate and rhythm, S1, S2 positive S3 with systolic murmur in the apex Back: Symmetric, no curvature, ROM normal, no CVA tenderness. Abdomen: Soft, non-tender, bowel sounds active all four quadrants, no masses, no organomegaly. Extremities: 1+ edema bilaterally left leg has cold or feeling than the right side with no pulse in the dorsalis pedis can be palpable. Pulses: Decrease in the left compared to the right. Skin: Skin color, texture, tugor normal, no rashes or lesions. Neurologic: Alert oriented significant confusion cranial nerves II 12 intact positive severe advanced dementia able to move all her 4 extremity with severe abnormal balance and gait. Results CBC & Chem 7: 07/26/19 04:31 07/26/19 04:31 Labs: Abnormal Lab Results - Last 24 Hours (Table) 07/25/19 07/25/19 07/25/19 Range/Units 12:21 12: 12: Hct 46.5 H (34.0-46.0) % Neutrophils # 8.8 H (1.3-7.7) k/uL Lymphocytes # 0.6 L (1.0-4.8) k/uL APTT (22.0-30.0) sec ABG pH (7.35-7.45) ABG pCO2 (35-45) mmHg ABG pO2 (83-108) mmHg ABG HCO3 (21-25) mmol/L ABG Total CO2 (19-24) mmol/L ABG O2 Saturation (94-97) % Sodium (137-145) mmol/L Chloride 95 L (98-107) mmol/L Carbon Dioxide 35 H (22-30) mmol/L BUN 22 H (7-17) mg/dL Glucose 140 H (74-99) mg/dL POC Glucose (mg/dL) (75-99) mg/dL Plasma Lactic Acid Fletcher 2.1 H* (0.7-2.0) mmol/L AST 47 H (14-36) U/L 07/25/19 07/25/19 07/25/19 Range/Units 18:29 18:51 19:16 Hct (34.0-46.0) % Neutrophils # (1.3-7.7) k/uL Lymphocytes # 0.7 L (1.0-4.8) k/uL APTT (22.0-30.0) sec ABG pH (7.35-7.45) ABG pCO2 56 H (35-45) mmHg ABG pO2 276 H (83-108) mmHg ABG HCO3 33 H (21-25) mmol/L ABG Total CO2 35 H (19-24) mmol/L ABG O2 Saturation 100.0 H (94-97) % Sodium (137-145) mmol/L Chloride (98-107) mmol/L Carbon Dioxide (22-30) mmol/L BUN (7-17) mg/dL Glucose (74-99) mg/dL POC Glucose (mg/dL) 164 H (75-99) mg/dL Plasma Lactic Acid Fletcher (0.7-2.0) mmol/L AST (14-36) U/L 07/25/19 07/26/19 07/26/19 Range/Units 19:16 00:38 04:31 Hct (34.0-46.0) % Neutrophils # (1.3-7.7) k/uL Lymphocytes # (1.0-4.8) k/uL APTT 49.2 H 48.6 H (22.0-30.0) sec ABG pH (7.35-7.45) ABG pCO2 (35-45) mmHg ABG pO2 (83-108) mmHg ABG HCO3 (21-25) mmol/L ABG Total CO2 (19-24) mmol/L ABG O2 Saturation (94-97) % Sodium (137-145) mmol/L Chloride (98-107) mmol/L Carbon Dioxide (22-30) mmol/L BUN (7-17) mg/dL Glucose (74-99) mg/dL POC Glucose (mg/dL) 158 H (75-99) mg/dL Plasma Lactic Acid Fletcher (0.7-2.0) mmol/L AST (14-36) U/L 07/26/19 07/26/19 07/26/19 Range/Units 04:31 07:14 08:02 Hct (34.0-46.0) % Neutrophils # (1.3-7.7) k/uL Lymphocytes # (1.0-4.8) k/uL APTT (22.0-30.0) sec ABG pH 7.51 H (7.35-7.45) ABG pCO2 (35-45) mmHg ABG pO2 (83-108) mmHg ABG HCO3 31 H (21-25) mmol/L ABG Total CO2 32 H (19-24) mmol/L ABG O2 Saturation 97.7 H (94-97) % Sodium 136 L (137-145) mmol/L Chloride (98-107) mmol/L Carbon Dioxide 31 H (22-30) mmol/L BUN 19 H (7-17) mg/dL Glucose 117 H (74-99) mg/dL POC Glucose (mg/dL) 125 H (75-99) mg/dL Plasma Lactic Acid Fletcher (0.7-2.0) mmol/L AST (14-36) U/L Thrombosis Risk Factor Assmnt - DVT/VTE Prophylaxis DVT/VTE Prophylaxis: Pharmacologic Prophylaxis ordered, Mechanical Prophylaxis ordered - Choose All That Apply Any of the Below Risk Factors Present?: Yes Each Risk Factor Represents 3 Points: Age 75 years or older, History of DVT/PE Thrombosis Risk Factor Assessment Total Risk Factor Score: 6 Thrombosis Risk Factor Assessment Level: High Risk Assessment and Plan Plan: 1 acute thrombus event in the left popliteal and femoral artery: Patient be going for thrombectomy with vascular will be admitted to the hospital afterward remain on anticoagulation and might require and antiplatelet agent as well. 2 pulseless leg and the left side secondary to acute thrombus event at a clear whether this is caused by the A. fib or had any significant CAD component. 3 A. fib with RVR: Patient will be continue on smaller dose of beta zoila anticoagulation when needed for the thrombus for the time being on long-term will be recommended agreeable by family. 4 COPD: Has been on oxygen and updraft treatment [id number] continue medication. 5 hypothyroidism: Continue levothyroxine at 125 g daily. 6 systolic dysfunction congestive heart failure chronic with mild acute component continue metoprolol and furosemide for now patient can benefit from doing echocardiogram seen with her heart function looks like with something has not had last 5 years. 7 advance dementia: Mostly Alzheimer type has not been on any memory medicine at this point she is on Abilify for depression by psych from [facility] continue medication. 8 hyperglycemia: Continue Accu-Chek with sliding scales coverage. 9 GI prophylaxis: Patient will be on pantoprazole. 10 DVT prophylaxis: Patient is on heparin drip at this point will be switched to possible Xarelto when she goes back to [facility]. CODE STATUS: Full code. Admit patient to inpatient status for more than 2 nights stay.
--- NOTE | 2019-07-26 11:05 | P.PN ---
Subjective Progress Note Date: 07/26/19 Principal diagnosis: Left iliac artery occlusion, cold leg, A. fib with RVR nonsustained, hypothyroidism, respiratory failure with vent dependent post surgery. 84-year-old female one of my patient in [facility] for the last 5 years with past medical history of mild CHF systolic dysfunction, recurrent UTI, COPD, advanced dementia, and hypothyroidism who was seen this last week for Route monthly around was doing well she developed to have an acute pain and discomfort in the left leg for few hours earlier and a blood to have cold foot and leg was suspected to be arterial thrombus patient was sent to [facility] was tested and seen by vascular and agree that she had iliac and femoral occlusion as a thrombus in the left side patient be taken to the OR by vascular for thrombectomy in the meanwhile she is doing slightly but better found to have A. fib with RVR nonsustained never been diagnosed and treated for the past she is not a good candidate for an anticoagulation as a long-term. Patient will be hospitalized after procedure for the above problem. 07/25: Patient had her thrombectomy yesterday with vascular was off the vent for sure. Of time and have to be reintubated back on the ventilator management, patient is on a small dose of vasopressor currently and been sedated her thrombectomy site looks good to the leg is warmer than the right side today. Hemodynamically stable but her comorbidity for all dextro medical problem is much higher than normal. Objective - Vital Signs Vital signs: Vital Signs Temp 96.9 F L 07/26/19 08:00 Pulse 91 07/26/19 10:00 Resp 16 07/26/19 10:00 BP 160/110 07/25/19 15:14 Pulse Ox 97 07/26/19 10:00 Intake & Output 07/25/19 07/26/19 07/26/19 18:59 06:59 18:59 Intake Total 1001 816.140 694.191 Output Total 300 465 175 Balance 701 351.140 519.191 Weight 113.398 kg 109 kg Intake: IV 1001 715 500 Lactated Ringers 1,000 ml 715 300 @ 75 mls/hr IV .[id number] MIKE Rx#:[id number] Potassium Chloride 10 meq 200 In Water For Injection 1 100ml.bag @ 100 mls/hr IVPB Q1H MIKE Rx#: [id number] Intake, IV Titration 101.140 194.191 Amount Norepinephrine 4 mg In 5.544 111.07 Sodium Chloride 0.9% 250 ml @ 0.05 MCG/KG/MIN 21. 602 mls/hr IV .[id number] MIKE Rx#:[id number] Propofol 1,000 mg In 95.596 83.121 Empty Bag 1 bag @ Titrate IV .Q0M MIKE Rx#: [id number] Output: Urine 250 465 175 Estimated Blood Loss 50 Other: Voiding Method Indwelling Catheter Indwelling Catheter ABP, PAP, CO, CI - Last Documented Arterial Blood Pressure 110/60 - Exam Review of Systems CONSTITUTIONAL: Well-developed no acute respiratory distress. Morbidly obese EYES: No icterus sclerae, no conjunctivitis. EARS, NOSE, MOUTH, THROAT, and FACE: No sore throat, lymphadenopathy, carotid bruits or deformity. RESPIRATORY: Mild shortness of breath no cough or wheezes. CARDIOVASCULAR: Positive PND orthopnea palpitations with new onset of A. fib with pulse rate running in the 70s. GASTROINTESTINAL: No Abd pain, Nausea or vomiting, no Diarrhea or constipation, No GI Bleed, no distention or masses. GENITOURINARY: Negative for Hematuria or UTI, no kidney stones. Recurrent incontinence with recurrent UTI with no recent infection. INTEGUMENT/BREAST: Negative for any muscular injury with mild osteoarthritis.. HEMATOLOGIC/LYMPHATIC: Negative for bleed or purpura. MUSCULOSKELTAL: Negative for Myalgia or arthralgia. NEURLOGICAL: No LOC, Sz or syncope, blurred vision dizziness or abnormality.. Significant memory loss and dementia. BEHAVIORAL/PSYCH: Negative. ENDOCRINE: Negative. Physical Exam Vitals: Patient is on mechanical ventilation at the time of exam. General Appearance: Alert, cooperative, no distress, appears stated age. Morbidly obese laying in bed doesn't look much pain. Neck HEENT: Supple, no lymphadenopathy, no thyroid enlargement, no carotid bruits. Lungs: Decreased breath sound bilaterally with fine rhonchi no crackles or wheezes. Chest Wall: Decrease expansion with deep inspiration no tenderness and no deformity was found on exam, no costochondral pain or discomfort. Heart: Irregular Rhythm and rate and rhythm, S1, S2 positive S3 with systolic murmur in the apex Back: Symmetric, no curvature, ROM normal, no CVA tenderness. Abdomen: Soft, non-tender, bowel sounds active all four quadrants, no masses, no organomegaly. Extremities: 1+ edema bilaterally left leg has cold or feeling than the right side with no pulse in the dorsalis pedis can be palpable. Pulses: Decrease in the left compared to the right. Skin: Skin color, texture, tugor normal, no rashes or lesions. Neurologic: Alert oriented significant confusion cranial nerves II 12 intact positive severe advanced dementia able to move all her 4 extremity with severe abnormal balance and gait. - Labs CBC & Chem 7: 07/26/19 04:31 07/26/19 04:31 Labs: Abnormal Lab Results - Last 24 Hours (Table) 07/25/19 07/25/19 07/25/19 Range/Units 12:21 12:21 12:21 Hct 46.5 H (34.0-46.0) % Neutrophils # 8.8 H (1.3-7.7) k/uL Lymphocytes # 0.6 L (1.0-4.8) k/uL APTT (22.0-30.0) sec ABG pH (7.35-7.45) ABG pCO2 (35-45) mmHg ABG pO2 (83-108) mmHg ABG HCO3 (21-25) mmol/L ABG Total CO2 (19-24) mmol/L ABG O2 Saturation (94-97) % Sodium (137-145) mmol/L Chloride 95 L (98-107) mmol/L Carbon Dioxide 35 H (22-30) mmol/L BUN 22 H (7-17) mg/dL Glucose 140 H (74-99) mg/dL POC Glucose (mg/dL) (75-99) mg/dL Plasma Lactic Acid Fletcher 2.1 H* (0.7-2.0) mmol/L AST 47 H (14-36) U/L 07/25/19 07/25/19 07/25/19 Range/Units 18:29 18:51 19:16 Hct (34.0-46.0) % Neutrophils # (1.3-7.7) k/uL Lymphocytes # 0.7 L (1.0-4.8) k/uL APTT (22.0-30.0) sec ABG pH (7.35-7.45) ABG pCO2 56 H (35-45) mmHg ABG pO2 276 H (83-108) mmHg ABG HCO3 33 H (21-25) mmol/L ABG Total CO2 35 H (19-24) mmol/L ABG O2 Saturation 100.0 H (94-97) % Sodium (137-145) mmol/L Chloride (98-107) mmol/L Carbon Dioxide (22-30) mmol/L BUN (7-17) mg/dL Glucose (74-99) mg/dL POC Glucose (mg/dL) 164 H (75-99) mg/dL Plasma Lactic Acid Fletcher (0.7-2.0) mmol/L AST (14-36) U/L 07/25/19 07/26/19 07/26/19 Range/Units 19:16 00:38 04:31 Hct (34.0-46.0) % Neutrophils # (1.3-7.7) k/uL Lymphocytes # (1.0-4.8) k/uL APTT 49.2 H 48.6 H (22.0-30.0) sec ABG pH (7.35-7.45) ABG pCO2 (35-45) mmHg ABG pO2 (83-108) mmHg ABG HCO3 (21-25) mmol/L ABG Total CO2 (19-24) mmol/L ABG O2 Saturation (94-97) % Sodium (137-145) mmol/L Chloride (98-107) mmol/L Carbon Dioxide (22-30) mmol/L BUN (7-17) mg/dL Glucose (74-99) mg/dL POC Glucose (mg/dL) 158 H (75-99) mg/dL Plasma Lactic Acid Fletcher (0.7-2.0) mmol/L AST (14-36) U/L 07/26/19 07/26/19 07/26/19 Range/Units 04:31 07:14 08:02 Hct (34.0-46.0) % Neutrophils # (1.3-7.7) k/uL Lymphocytes # (1.0-4.8) k/uL APTT (22.0-30.0) sec ABG pH 7.51 H (7.35-7.45) ABG pCO2 (35-45) mmHg ABG pO2 (83-108) mmHg ABG HCO3 31 H (21-25) mmol/L ABG Total CO2 32 H (19-24) mmol/L ABG O2 Saturation 97.7 H (94-97) % Sodium 136 L (137-145) mmol/L Chloride (98-107) mmol/L Carbon Dioxide 31 H (22-30) mmol/L BUN 19 H (7-17) mg/dL Glucose 117 H (74-99) mg/dL POC Glucose (mg/dL) 125 H (75-99) mg/dL Plasma Lactic Acid Fletcher (0.7-2.0) mmol/L AST (14-36) U/L Assessment and Plan Plan: 1 acute thrombus event in the left popliteal and femoral artery: Patient be going for thrombectomy with vascular will be admitted to the hospital afterward remain on anticoagulation and might require and antiplatelet agent as well. 2 respiratory failure with vent require postsurgical complication with hypoxia: Continue mechanical ventilation continue current management for now patient is in ICU remain. 3 pulseless leg and the left side secondary to acute thrombus event at a clear whether this is caused by the A. fib or had any significant CAD component. 4 A. fib with RVR: Patient will be continue on smaller dose of beta zoila anticoagulation when needed for the thrombus for the time being on long-term will be recommended agreeable by family. 5 COPD: Has been on oxygen and updraft treatment [id number] continue medication. 6 systolic dysfunction congestive heart failure chronic with mild acute component continue metoprolol and furosemide for now patient can benefit from doing echocardiogram seen with her heart function looks like with something has not had last 5 years. 7 advance dementia: Mostly Alzheimer type has not been on any memory medicine at this point she is on Abilify for depression by psych from [facility] continue medication. 8 hyperglycemia: Continue Accu-Chek with sliding scales coverage. 9 hypothyroidism: Continue levothyroxine at 125 g daily. 10 GI prophylaxis: Patient will be on pantoprazole. 11 DVT prophylaxis: Patient is on heparin drip at this point will be switched to possible Xarelto when she goes back to [facility]. CODE STATUS: Full code. Admit patient to inpatient status for more than 2 nights stay.
[2019-07-26 11:36] LABS: Glucose,Whole Blood 104 mg/dL (75-99)
--- NOTE | 2019-07-26 13:28 | P.PN ---
Subjective Progress Note Date: 07/26/19 Principal diagnosis: Status post thrombectomy left iliofemoral and popliteal vessels. 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 Patient was recently weaned from the ventilator. Laboratory Results - Last 24 Hours 07/25/19 07/25/19 07/25/19 12:21 13:02 16:45 WBC RBC Hgb Hct MCV MCH MCHC RDW Plt Count Neutrophils % Lymphocytes % Monocytes % Eosinophils % Basophils % Neutrophils # Lymphocytes # Monocytes # Eosinophils # Basophils # PT INR APTT Sample Site ABG pH ABG pCO2 ABG pO2 ABG HCO3 ABG Total CO2 ABG O2 Saturation ABG Base Excess Demar Test FiO2 Sodium Potassium Chloride Carbon Dioxide Anion Gap BUN Creatinine Est GFR (CKD-EPI)AfAm Est GFR (CKD-EPI)NonAf Glucose POC Glucose (mg/dL) POC Glu Signal Helper ID Lactic Ac Sepsis Rflx Y Plasma Lactic Acid Fletcher Calcium NT-Pro-B Natriuret Pep 3510 Blood Type O Positive Blood Type Confirm Blood Type Recheck No Previous Record Bld Type Recheck Status CABO Indicated Antibody Screen POSITIVE Antibody Identification Anti-S Antigen Identification S Antigen - NEGATIVE Direct Antiglob Test Negative Spec Expiration Date 07/28/2019 - 234407/25/19 07/25/19 07/25/19 18:29 18:51 19:00 WBC RBC Hgb Hct MCV MCH MCHC RDW Plt Count Neutrophils % Lymphocytes % Monocytes % Eosinophils % Basophils % Neutrophils # Lymphocytes # Monocytes # Eosinophils # Basophils # PT INR APTT Sample Site stephanie ABG pH 7.38 ABG pCO2 56 H ABG pO2 276 H ABG HCO3 33 H ABG Total CO2 35 H ABG O2 Saturation 100.0 H ABG Base Excess 7.6 Demar Test Yes FiO2 100 Sodium Potassium Chloride Carbon Dioxide Anion Gap BUN Creatinine Est GFR (CKD-EPI)AfAm Est GFR (CKD-EPI)NonAf Glucose POC Glucose (mg/dL) 164 H POC Glu Signal Helper ID Johanna Santos Lactic Ac Sepsis Rflx Plasma Lactic Acid Fletcher Calcium NT-Pro-B Natriuret Pep Blood Type Blood Type Confirm O Positive Blood Type Recheck Bld Type Recheck Status Antibody Screen Antibody Identification Antigen Identification Direct Antiglob Test Spec Expiration Date 07/25/19 07/25/19 07/25/19 19:16 19:16 19:16 WBC 8.4 RBC 4.54 Hgb 13.3 Hct 41.4 MCV 91.1 MCH 29.2 MCHC 32.0 RDW 13.5 Plt Count 175 Neutrophils % 87 Lymphocytes % 8 Monocytes % 4 Eosinophils % 0 Basophils % 0 Neutrophils # 7.3 Lymphocytes # 0.7 L Monocytes # 0.4 Eosinophils # 0.0 Basophils # 0.0 PT 11.0 INR 1.1 APTT 49.2 H Sample Site ABG pH ABG pCO2 ABG pO2 ABG HCO3 ABG Total CO2 ABG O2 Saturation ABG Base Excess Demar Test FiO2 Sodium Potassium Chloride Carbon Dioxide Anion Gap BUN Creatinine Est GFR (CKD-EPI)AfAm Est GFR (CKD-EPI)NonAf Glucose POC Glucose (mg/dL) POC Glu Signal Helper ID Lactic Ac Sepsis Rflx Plasma Lactic Acid Fletcher 1.4 Calcium NT-Pro-B Natriuret Pep Blood Type Blood Type Confirm Blood Type Recheck Bld Type Recheck Status Antibody Screen Antibody Identification Antigen Identification Direct Antiglob Test Spec Expiration Date 07/26/19 07/26/19 07/26/19 00:38 04:31 04:31 WBC 9.2 RBC 4.48 Hgb 13.0 Hct 40.8 MCV 91.1 MCH 28.9 MCHC 31.7 RDW 13.6 Plt Count 166 Neutrophils % 79 Lymphocytes % 15 Monocytes % 4 Eosinophils % 1 Basophils % 0 Neutrophils # 7.3 Lymphocytes # 1.4 Monocytes # 0.4 Eosinophils # 0.1 Basophils # 0.0 PT INR APTT 48.6 H Sample Site ABG pH ABG pCO2 ABG pO2 ABG HCO3 ABG Total CO2 ABG O2 Saturation ABG Base Excess Demar Test FiO2 Sodium Potassium Chloride Carbon Dioxide Anion Gap BUN Creatinine Est GFR (CKD-EPI)AfAm Est GFR (CKD-EPI)NonAf Glucose POC Glucose (mg/dL) 158 H POC Glu Signal Helper ID Tani Nash Lactic Ac Sepsis Rflx Plasma Lactic Acid Fletcher Calcium NT-Pro-B Natriuret Pep Blood Type Blood Type Confirm Blood Type Recheck Bld Type Recheck Status Antibody Screen Antibody Identification Antigen Identification Direct Antiglob Test Spec Expiration Date 07/26/19 07/26/19 07/26/19 04:31 07:14 08:02 WBC RBC Hgb Hct MCV MCH MCHC RDW Plt Count Neutrophils % Lymphocytes % Monocytes % Eosinophils % Basophils % Neutrophils # Lymphocytes # Monocytes # Eosinophils # Basophils # PT INR APTT Sample Site stephanie ABG pH 7.51 H ABG pCO2 39 ABG pO2 89 ABG HCO3 31 H ABG Total CO2 32 H ABG O2 Saturation 97.7 H ABG Base Excess 8.0 Demar Test no FiO2 40 Sodium 136 L Potassium 3.6 Chloride 101 Carbon Dioxide 31 H Anion Gap 4 BUN 19 H Creatinine 0.94 Est GFR (CKD-EPI)AfAm 66 Est GFR (CKD-EPI)NonAf 57 Glucose 117 H POC Glucose (mg/dL) 125 H POC Glu Signal Helper ID Nupur Mckeon Lactic Ac Sepsis Rflx Plasma Lactic Acid Fletcher Calcium 8.4 NT-Pro-B Natriuret Pep Blood Type Blood Type Confirm Blood Type Recheck Bld Type Recheck Status Antibody Screen Antibody Identification Antigen Identification Direct Antiglob Test Spec Expiration Date 07/26/19 11:34 WBC RBC Hgb Hct MCV MCH MCHC RDW Plt Count Neutrophils % Lymphocytes % Monocytes % Eosinophils % Basophils % Neutrophils # Lymphocytes # Monocytes # Eosinophils # Basophils # PT INR APTT Sample Site ABG pH ABG pCO2 ABG pO2 ABG HCO3 ABG Total CO2 ABG O2 Saturation ABG Base Excess Demar Test FiO2 Sodium Potassium Chloride Carbon Dioxide Anion Gap BUN Creatinine Est GFR (CKD-EPI)AfAm Est GFR (CKD-EPI)NonAf Glucose POC Glucose (mg/dL) 104 H POC Glu Signal Helper ID Johanna Santos Lactic Ac Sepsis Rflx Plasma Lactic Acid Fletcher Calcium NT-Pro-B Natriuret Pep Blood Type Blood Type Confirm Blood Type Recheck Bld Type Recheck Status Antibody Screen Antibody Identification Antigen Identification Direct Antiglob Test Spec Expiration Date Physical examination reveals the left leg to be warm to touch, pink in color and the patient can freely wiggle her toes. She appears to be in no pain. Impression: #1: Status post left iliofemoral/popliteal embolectomy with yazidism of adequate arterial perfusion left lower extremity. #2: Multiple medical problems currently being handled by her primary care provider. Recommendation: #1: Patient is surgically stable there is no contraindication from a medical standpoint would recommend anticoagulation to help prevent this from occurring in the future. I will leave this decision up to her primary care provider. Objective - Vital Signs Vital signs: Vital Signs Temp 96.9 F L 07/26/19 08:00 Pulse 79 07/26/19 11:00 Resp 16 03/22/20 11:00 BP 160/110 07/25/19 15:14 Pulse Ox 94 L 07/26/19 11:00 Intake & Output 07/25/19 07/26/19 07/26/19 18:59 06:59 18:59 Intake Total 1001 816.140 694.191 Output Total 300 465 175 Balance 701 351.140 519.191 Weight 113.398 kg 109 kg Intake: IV 1001 715 500 Lactated Ringers 1,000 ml 715 300 @ 75 mls/hr IV .[id number] MIKE Rx#:[id number] Potassium Chloride 10 meq 200 In Water For Injection 1 100ml.bag @ 100 mls/hr IVPB Q1H MIKE Rx#: [id number] Intake, IV Titration 101.140 194.191 Amount Norepinephrine 4 mg In 5.544 111.07 Sodium Chloride 0.9% 250 ml @ 0.05 MCG/KG/MIN 21. 602 mls/hr IV .[id number] MIKE Rx#:[id number] Propofol 1,000 mg In 95.596 83.121 Empty Bag 1 bag @ Titrate IV .Q0M MIKE Rx#: [id number] Output: Urine 250 465 175 Estimated Blood Loss 50 Other: Voiding Method Indwelling Catheter Indwelling Catheter ABP, PAP, CO, CI - Last Documented Arterial Blood Pressure 96/55 - Labs CBC & Chem 7: 07/26/19 04:31 07/26/19 04:31 Labs: Abnormal Lab Results - Last 24 Hours (Table) 07/25/19 07/25/19 07/25/19 Range/Units 18:29 18:51 19:16 Lymphocytes # 0.7 L (1.0-4.8) k/uL APTT (22.0-30.0) sec ABG pH (7.35-7.45) ABG pCO2 56 H (35-45) mmHg ABG pO2 276 H (83-108) mmHg ABG HCO3 33 H (21-25) mmol/L ABG Total CO2 35 H (19-24) mmol/L ABG O2 Saturation 100.0 H (94-97) % Sodium (137-145) mmol/L Carbon Dioxide (22-30) mmol/L BUN (7-17) mg/dL Glucose (74-99) mg/dL POC Glucose (mg/dL) 164 H (75-99) mg/dL 07/25/19 07/26/19 07/26/19 Range/Units 19:16 00:38 04:31 Lymphocytes # (1.0-4.8) k/uL APTT 49.2 H 48.6 H (22.0-30.0) sec ABG pH (7.35-7.45) ABG pCO2 (35-45) mmHg ABG pO2 (83-108) mmHg ABG HCO3 (21-25) mmol/L ABG Total CO2 (19-24) mmol/L ABG O2 Saturation (94-97) % Sodium (137-145) mmol/L Carbon Dioxide (22-30) mmol/L BUN (7-17) mg/dL Glucose (74-99) mg/dL POC Glucose (mg/dL) 158 H (75-99) mg/dL 07/26/19 07/26/19 07/26/19 Range/Units 04:31 07:14 08:02 Lymphocytes # (1.0-4.8) k/uL APTT (22.0-30.0) sec ABG pH 7.51 H (7.35-7.45) ABG pCO2 (35-45) mmHg ABG pO2 (83-108) mmHg ABG HCO3 31 H (21-25) mmol/L ABG Total CO2 32 H (19-24) mmol/L ABG O2 Saturation 97.7 H (94-97) % Sodium 136 L (137-145) mmol/L Carbon Dioxide 31 H (22-30) mmol/L BUN 19 H (7-17) mg/dL Glucose 117 H (74-99) mg/dL POC Glucose (mg/dL) 125 H (75-99) mg/dL 07/26/19 Range/Units 11:34 Lymphocytes # (1.0-4.8) k/uL APTT (22.0-30.0) sec ABG pH (7.35-7.45) ABG pCO2 (35-45) mmHg ABG pO2 (83-108) mmHg ABG HCO3 (21-25) mmol/L ABG Total CO2 (19-24) mmol/L ABG O2 Saturation (94-97) % Sodium (137-145) mmol/L Carbon Dioxide (22-30) mmol/L BUN (7-17) mg/dL Glucose (74-99) mg/dL POC Glucose (mg/dL) 104 H (75-99) mg/dL
--- NOTE | 2019-07-26 13:34 | P.CNPUL ---
History of Present Illness Consult date: 07/26/19 Reason for consult: other (Status post embolectomy of the left common external iliac as well as left common femoral profundus femoris and superficial femoral arterial segments. Patient is on mechanical ventilation) Chief complaint: Cold and blue left foot. History of present illness: This is an 84-year-old female, presented to the ER yesterday with sudden onset of left lower extremity pain and discoloration. Physical examination revealed absent femoral popliteal and pedal pulses on the left side. Decreased motor and sensory function was noted in the left leg, and there was some mottling of the foot. Calf was also affected. Patient had CT angiogram which showed occlusion of the left common and external iliac segments as well as the left common profundus and superficial femoral arterial segments. Patient was also in atrial fibrillation not on anticoagulation therapy and this was felt to be embolic event. Patient was seen by vascular surgery on consultation, underwent embolectomy of the left common 6 external iliac as well as the left common femoral, profundus femoris, and superficial femoral arterial segments. Postoperatively patient was on mechanical ventilation, and I was asked to see her on consultation. I saw the patient this morning, still on mechanical ventilation, patient was on propofol at 10 mcg/kg/m, discontinued her propofol, place the patient for about an hour on pressure support of 8 and CPAP, she was moving over 370 mL and tidal volume, and her respiratory rate was about 26. Patient seems to be comfortable, hence recommended extubating the patient to a nasal cannula. Review of Systems ROS unobtainable: due to endotracheal tube Past Medical History Past Medical History: Heart Failure, COPD, Dementia, Hypertension, Thyroid Disorder History of Any Multi-Drug Resistant Organisms: MRSA Date of last positivie culture/infection: 10/10/16 MDRO Source:: back Past Surgical History: Joint Replacement Additional Past Surgical History / Comment(s): R hip Past Anesthesia/Blood Transfusion Reactions: No Reported Reaction Past Psychological History: Schizophrenia Smoking Status: Never smoker Past Alcohol Use History: None Reported Past Drug Use History: None Reported Medications and Allergies Home Medications Medication Instructions Recorded Confirmed Type ARIPiprazole [Abilify] 2 mg PO DAILY@0800 07/25/19 07/25/19 History ARIPiprazole [Abilify] 5 mg PO DAILY@0807/25/19 07/25/19 History Acetaminophen Tab [Tylenol Tab] 500 mg PO BID PRN 07/25/19 07/25/19 History Artificial Tears-Hypromellose 1 drop BOTH EYES TID@0800,1200,1700 07/25/19 07/25/19 History [Artificial Tear Drops] Bisacodyl [Dulcolax] 10 mg RECTAL DAILY PRN 07/25/19 07/25/19 History Ergocalciferol (Vitamin D2) 50,000 unit PO Q14D 07/25/19 07/25/19 History [Drisdol] Furosemide [Lasix] 40 mg PO BID@0800,1700 07/25/19 07/25/19 History L.acidoph,Paracasei, B.lactis 1 cap PO DAILY@0800 07/25/19 07/25/19 History [Probiotic] Levothyroxine Sodium 125 mcg PO DAILY@0800 07/25/19 07/25/19 History Loratadine 10 mg PO DAILY@0800 07/25/19 07/25/19 History Magnesium Hydroxide [Milk of 7,200 mg PO Q48H PRN 07/25/19 07/25/19 History Magnesia Concentrate] Metoprolol Tartrate [Lopressor] 50 mg PO BID@0800,1700 07/25/19 07/25/19 History Na Phos,M-B/Na Phos,Di-Ba [Fleet 133 ml RECTAL DAILY PRN 07/25/19 07/25/19 History Adult] Olopatadine HCl [Patanol] 1 drop BOTH EYES BID@0800,1700 07/25/19 07/25/19 History Oyster Shell Calcium 500mg 500 mg PO DAILY@0800 07/25/19 07/25/19 History Potassium Chloride 10 meq PO DAILY@0800 07/25/19 07/25/19 History Allergies Allergy/AdvReac Type Severity Reaction Status Date / Time erythromycin base Allergy Unknown Verified 07/25/19 12:45 [From Erythrocin] levofloxacin [From Levaquin] Allergy Unknown Verified 07/25/19 12:45 Penicillins Allergy Unknown Verified 07/25/19 12:45 Physical Exam Vitals: Vital Signs Temp Pulse Resp BP Pulse Ox 07/26/19 11:00 79 16 94 L 07/26/19 10:30 80 16 95 07/26/19 10:00 91 16 97 07/26/19 09:30 85 16 96 07/26/19 09:00 85 16 95 07/26/19 08:30 79 16 97 07/26/19 08:00 96.9 F L 69 16 97 07/26/19 07:30 64 16 97 07/26/19 07:00 58 L 16 95 07/26/19 06:45 63 16 95 07/26/19 06:30 62 16 95 07/26/19 06:15 73 16 94 L 07/26/19 06:00 71 16 94 L 07/26/19 05:45 75 16 94 L 07/26/19 05:30 71 16 96 07/26/19 05:15 77 16 96 07/26/19 05:00 80 16 97 07/26/19 04:45 73 16 96 07/26/19 04:30 79 16 95 07/26/19 04:15 82 16 96 07/26/19 04:00 78 16 97 07/26/19 03:45 73 16 96 07/26/19 03:30 63 16 96 07/26/19 03:15 61 16 96 07/26/19 03:00 57 L 16 96 07/26/19 02:45 60 16 96 07/26/19 02:30 61 16 96 07/26/19 02:15 63 16 96 07/26/19 02:00 69 16 96 07/26/19 01:45 69 16 96 07/26/19 01:30 73 16 97 07/26/19 01:15 74 16 96 07/26/19 01:00 73 16 96 07/26/19 00:45 90 18 95 07/26/19 00:30 77 16 95 07/26/19 00:15 79 16 96 07/26/19 00:00 73 16 96 07/25/19 23:45 61 16 97 07/25/19 23:30 61 16 97 03 23:15 61 16 98 07/25/19 23:00 60 16 97 0320 22:45 60 16 98 0320 22:30 62 16 97 0320 22:15 64 16 98 03 22:00 60 16 98 03 21:45 63 16 97 07/25/19 21:30 57 L 16 98 07/25/19 21:15 75 16 96 07/25/19 21:00 75 16 92 L 07/25/19 20:45 68 16 96 07/25/19 20:30 64 16 96 07/25/19 20:15 76 16 96 07/25/19 20:00 75 18 96 07/25/19 19:45 72 16 96 07/25/19 19:30 75 16 96 07/25/19 19:15 76 16 95 07/25/19 19:00 68 16 99 07/25/19 15:14 92 18 160/110 07/25/19 15:00 108 H 18 167/125 94 L Intake and Output 07/25/19 07/26/19 07/26/19 22:59 06:59 14:59 Intake Total 1121.544 695.596 694.191 Output Total 500 265 175 Balance 621.544 430.596 519.191 Intake: IV 1116 600 500 Lactated Ringers 1,000 ml 115 600 300 @ 75 mls/hr IV .[id number] [facility] Rx#:[id number] Potassium Chloride 10 meq 200 In Water For Injection 1 100ml.bag @ 100 mls/hr IVPB Q1H [facility] Rx#: [id number] Intake, IV Titration 5.544 95.596 194.191 Amount Norepinephrine 4 mg In 5.544 111.07 Sodium Chloride 0.9% 250 ml @ 0.05 MCG/KG/MIN 21. 602 mls/hr IV .[id number] [facility] Rx#:[id number] Propofol 1,000 mg In 95.596 83.121 Empty Bag 1 bag @ Titrate IV .Q0M MI[facility] Rx#: [id number] Output: Urine 450 265 175 Estimated Blood Loss 50 Other: Voiding Method Indwelling Catheter Indwelling Catheter Indwelling Catheter Weight 113.398 kg 109 kg ABP, PAP, CO, CI - Last 8 Hours Arterial Blood Pressure 96/55 Arterial Blood Pressure 99/53 Arterial Blood Pressure 110/60 Arterial Blood Pressure 111/57 Arterial Blood Pressure 79/44 Arterial Blood Pressure 123/64 Arterial Blood Pressure 143/66 Arterial Blood Pressure 157/78 Arterial Blood Pressure 115/57 Arterial Blood Pressure 103/50 Arterial Blood Pressure 102/53 Arterial Blood Pressure 93/51 Arterial Blood Pressure 89/46 Arterial Blood Pressure 79/43 Arterial Blood Pressure 91/47 Gen.: Revealed 84-year-old female on mechanical ventilation, sedated, in no distress. Head: Atraumatic normocephalic, endotracheal tube and orogastric tubes are intact. EYES: No icterus sclerae, no conjunctivitis. EARS, NOSE, MOUTH, THROAT, and FACE: PERRLA, EOMI, neck tightness. RESPIRATORY: Symmetrical chest expansion, crackles at the bases no rhonchi and no wheezes. CARDIOVASCULAR: Irregular irregular rhythm, no S3 gallop, 2/6 systolic murmur thought the precordium. Abdomen: Obese, soft, nontender, no megaly, no rebound. Extremities: Left foot is warm, good pulses in the left leg, however the right leg seems to be cold, and diminished pulses in the popliteal and dorsalis pedis on the right side. Apparently the surgeon is aware of the ischemic changes in the right leg. Neurologic: Cannot be assessed, however the patient is alert, oriented, follows very simple instructions, she is on mechanical ventilation, known to have history of dementia. Skin: No rashes, the main finding is basically ischemic changes in the right leg with cool to touch right foot, no clear-cut cyanosis. Results - Laboratory Findings CBC and BMP: 07/26/19 04:31 07/26/19 04:31 ABG ABG pH 7.51 (7.35-7.45) H 07/26/19 08:02 ABG pCO2 39 mmHg (35-45) 07/26/19 08:02 ABG pO2 89 mmHg (83-108) 07/26/19 08:02 ABG O2 Saturation 97.7 % (94-97) H 07/26/19 08:02 PT/INR, D-dimer PT 11.0 sec (9.0-12.0) 07/25/19 19:16 INR 1.1 (<1.2) 07/25/19 19:16 Abnormal lab findings: Abnormal Labs 07/25/19 07/25/19 07/25/19 12:21 12:21 12:21 Hct 46.5 H Neutrophils # 8.8 H Lymphocytes # 0.6 L APTT ABG pH ABG pCO2 ABG pO2 ABG HCO3 ABG Total CO2 ABG O2 Saturation Sodium Chloride 95 L Carbon Dioxide 35 H BUN 22 H Glucose 140 H POC Glucose (mg/dL) Plasma Lactic Acid Fletcher 2.1 H* AST 47 H 07/25/19 07/25/19 07/25/19 18:29 18:51 19:16 Hct Neutrophils # Lymphocytes # 0.7 L APTT ABG pH ABG pCO2 56 H ABG pO2 276 H ABG HCO3 33 H ABG Total CO2 35 H ABG O2 Saturation 100.0 H Sodium Chloride Carbon Dioxide BUN Glucose POC Glucose (mg/dL) 164 H Plasma Lactic Acid Fletcher AST 07/25/19 07/26/19 07/26/19 19:16 00:38 04:31 Hct Neutrophils # Lymphocytes # APTT 49.2 H 48.6 H ABG pH ABG pCO2 ABG pO2 ABG HCO3 ABG Total CO2 ABG O2 Saturation Sodium Chloride Carbon Dioxide BUN Glucose POC Glucose (mg/dL) 158 H Plasma Lactic Acid Fletcher AST 07/26/19 07/26/19 07/26/19 04:31 07:14 08:02 Hct Neutrophils # Lymphocytes # APTT ABG pH 7.51 H ABG pCO2 ABG pO2 ABG HCO3 31 H ABG Total CO2 32 H ABG O2 Saturation 97.7 H Sodium 136 L Chloride Carbon Dioxide 31 H BUN 19 H Glucose 117 H POC Glucose (mg/dL) 125 H Plasma Lactic Acid Fletcher AST 07/26/19 11:34 Hct Neutrophils # Lymphocytes # APTT ABG pH ABG pCO2 ABG pO2 ABG HCO3 ABG Total CO2 ABG O2 Saturation Sodium Chloride Carbon Dioxide BUN Glucose POC Glucose (mg/dL) 104 H Plasma Lactic Acid Fletcher AST - Diagnostic Findings Chest x-ray: image reviewed (Mild congestive changes noted on the chest x-ray, improved compared to her admission chest x-ray.) Assessment and Plan Assessment: Impression: Acute thrombosis of the left iliac system and other segments requiring embolectomy, postoperative day #1. Failure to wean post surgery requiring reintubation and ventilatory support, expected in 84-year-old with dementia and underlying acute on chronic systolic congestive heart failure, also secondary to history of underlying COPD. Postoperative hypoxic respiratory failure secondary to above, mostly acute on chronic systolic congestive heart failure. Required reintubation. This is again expected considering the patient's clinical condition History of underlying COPD, patient is normally on oxygen at home and nebulizer treatment. Presently inactive. History of advanced dementia mostly Alzheimer's type. History of hypothyroidism Recommendation: Patient will be given a trial of pressure support and CPAP off propofol, and if she tolerates that well we'll proceed to extubating the patient. Resume bronchodilators/updrafts Resume diuretics GI and DVT prophylaxis Continue heparin as per vascular surgery on the case. We'll continue to follow. Prognosis remains guarded considering the patient's overall multiple comorbidities and dementia. Time with Patient: Greater than 30
[2019-07-26] MEDS: IPRATROPIUM-ALBUTEROL 3 ML NEB INHALATION SCH ×2 (15:29→20:43)
[2019-07-26] MEDS: FUROSEMIDE 40 MG TAB PO SCH (17:03)
[2019-07-26] MEDS ORDERED: FUROSEMIDE 10 MG/ML 4 ML VIAL IV STA (17:04)
[2019-07-26] MEDS: PANTOPRAZOLE 40 MG/10 ML VIAL IVP SCH (18:34)
[2019-07-26] MEDS: HEPARIN SOD,PORK IN 0.45% NACL 25,000 UNIT in 0.45% NACL 1 250ML.BAG IV SCH (21:50)
[2019-07-27 05:41] LABS: Basophils % (A) 0 %; Eosinophils % (A) 0 %; HCT 36.3 % (34.0-46.0); Lymphocytes # (A) 0.9 k/uL (1.0-4.8); Lymphocytes % (A) 10 %; MCH 30.1 pg (25.0-35.0); MCHC 33.2 g/dL (31.0-37.0); MCV 90.8 fL (80.0-100.0); Mean Platelet Volume 10.8; Monocytes # (A) 0.5 k/uL (0-1.0); Monocytes % (A) 5 %; Neutrophils # (A) 7.3 k/uL (1.3-7.7); Neutrophils % (A) 83 %; Platelet Count 161 k/uL (150-450); RBC 3.99 m/uL (3.80-5.40); RDW 13.8 % (11.5-15.5); WBC 8.8 k/uL (3.8-10.6)
[2019-07-27 06:18] LABS: Albumin 2.9 g/dL (3.5-5.0); Calcium 8.3 mg/dL (8.4-10.2); Total Bilirubin 0.8 mg/dL (0.2-1.3); Total Protein 5.6 g/dL (6.3-8.2)
--- NOTE | 2019-07-27 07:30 | XR ---
EXAMINATION TYPE: XR chest 1V portable DATE OF EXAM: 07/27/2019 Comparison: 07/26/2019 Clinical History: 84-year-old female Tube placement Findings: Interval extubation and removal of NG tube. Low lung volumes. Heart borderline enlarged. Mild interst itial densities remain. Patchy retrocardiac and left basilar opacity also redemonstrated. Posterior l umbar fusion hardware. Impression: Interval extubation. Mild residual interstitial density remains. Additional patchy left basilar and r etrocardiac atelectasis/consolidation also remains.
[2019-07-27] MEDS: IPRATROPIUM-ALBUTEROL 3 ML NEB INHALATION SCH ×4 (08:05→19:27)
[2019-07-27] MEDS: NOREPINEPHRINE 4 MG in SODIUM CHLORIDE 0.9% 250 ML IV SCH (08:08)
[2019-07-27] MEDS: LEVOTHYROXINE 125 MCG TAB PO SCH (08:21)
[2019-07-27] MEDS: POTASSIUM CHLORIDE ER 10 MEQ TAB.ER.PRT PO SCH (08:21)
[2019-07-27] MEDS: ARIPiprazole 2 MG TAB PO SCH (08:21)
[2019-07-27] MEDS: FUROSEMIDE 40 MG TAB PO SCH ×2 (08:22→18:13)
[2019-07-27] MEDS: CALCIUM CARBONATE 500 MG CHEWABLE PO SCH (08:22)
[2019-07-27] MEDS: ARIPiprazole 5 MG TAB PO SCH (08:22)
[2019-07-27] MEDS: METOPROLOL TARTRATE 50 MG TAB PO SCH ×2 (08:22→18:13)
[2019-07-27] MEDS: LORATADINE 10 MG TAB PO SCH (08:22)
[2019-07-27] MEDS: PANTOPRAZOLE 40 MG/10 ML VIAL IVP SCH (08:23)
[2019-07-27] MEDS: KETOTIFEN 0.025% OPHTH DROPS 5 ML BTL BOTH EYES SCH ×2 (08:23→18:13)
[2019-07-27] MEDS: LACTOBACILLUS ACIDOPH & BULGAR 1 EACH PACKET PO SCH (10:27)
--- NOTE | 2019-07-27 10:36 | P.PN ---
Subjective Progress Note Date: 07/27/19 Principal diagnosis: Post embolectomy of the left common external iliac as well as left common femoral profundus femoris and superficial femoral arterial segments This is an 84-year-old female, presented to the ER yesterday with sudden onset of left lower extremity pain and discoloration. Physical examination revealed absent femoral popliteal and pedal pulses on the left side. Decreased motor and sensory function was noted in the left leg, and there was some mottling of the foot. Calf was also affected. Patient had CT angiogram which showed occlusion of the left common and external iliac segments as well as the left common profundus and superficial femoral arterial segments. Patient was also in atrial fibrillation not on anticoagulation therapy and this was felt to be embolic event. Patient was seen by vascular surgery on consultation, underwent embolectomy of the left common 6 external iliac as well as the left common femoral, profundus femoris, and superficial femoral arterial segments. Postoperatively patient was on mechanical ventilation, and I was asked to see her on consultation. I saw the patient this morning, still on mechanical ventilation, patient was on propofol at 10 mcg/kg/m, discontinued her propofol, place the patient for about an hour on pressure support of 8 and CPAP, she was moving over 370 mL and tidal volume, and her respiratory rate was about 26. Patient seems to be comfortable, hence recommended extubating the patient to a nasal cannula. On 07/27/2019 patient seen in follow-up in the intensive care unit. She is awake and alert, resting in bed, in no acute distress, currently on 4 L of oxygen with a pulse ox of 97%, she is hemodynamically stable, she remains on a small amount of Levofed at 2 mics per minute, which can turned off, as a current blood pressure is 137/68, slightly tachycardic, with a rate of 107 BPM, patient is afebrile, she remains on lactated Ringer's rate of 20 ML per hour, heparin drip at weight-based protocol. This is postoperative day 2, status post embolectomy of the left common external iliac as well as left common femoral profundus femoris and superficial femoral arterial segments. Lung sounds are positive for scattered rhonchi, patient does have a effective cough, she will need incentive spirometry. Today's labs have been reviewed with blood cell count is 8.8, hemoglobin is 12.0, electrolytes were within normal limits, BUN of 18 creatinine is 1.0. Left leg is warm to touch, no complaints of numbness or tingling no pain. Objective - Vital Signs Vital signs: Vital Signs Temp 98.4 F 07/27/19 08:00 Pulse 117 H 07/27/19 10:00 Resp 31 H 07/27/19 10:00 BP 160/110 07/25/19 15:14 Pulse Ox 93 L 07/27/19 10:00 Intake & Output 07/26/19 07/27/19 07/27/19 18:59 06:59 18:59 Intake Total 1294.191 688.987 60 Output Total 390 780 115 Balance 904.191 -91.013 -55 Weight 107.7 kg Intake: IV 1100 295 60 KVO 220 60 Lactated Ringers 1,000 ml 900 75 @ 20 mls/hr IV .Q24H [facility] Rx#:[id number] Potassium Chloride 10 meq 200 In Water For Injection 1 100ml.bag @ 100 mls/hr IVPB Q1H [facility] Rx#: [id number] Intake, IV Titration 194.191 243.987 Amount Heparin Sod,Pork in 0.45% 243.987 NaCl 25,000 unit In 0.45 % NaCl 1 250ml.bag @ 8.8 UNITS/KG/HR 9.979 mls/hr IV .Q24H [facility] Rx#: [id number] Norepinephrine 4 mg In 111.07 0 Sodium Chloride 0.9% 250 ml @ 0.05 MCG/KG/MIN 21. 602 mls/hr IV .[id number] [facility] Rx#:[id number] Propofol 1,000 mg In 83.121 Empty Bag 1 bag @ Titrate IV .Q0M [facility] Rx#: [id number] Oral 150 Output: Urine 390 780 115 Other: Voiding Method Indwelling Catheter Indwelling Catheter ABP, PAP, CO, CI - Last Documented Arterial Blood Pressure 103/47 - Exam GENERAL EXAM: Alert, pleasant, 84-year-old white female, on 4 L of oxygen with a pulse ox of 96% resting comfortably in bed in the intensive care unit. EYES: Normal reaction of pupils, equal size. Conjunctiva pink, sclera white. NOSE: Clear with pink turbinates. THROAT: No erythema or exudates. NECK: No masses, no JVD, no thyroid enlargement, no adenopathy. CHEST: No chest wall deformity. Symmetrical expansion. LUNGS: Equal air entry with diffuse rhonchi CVS: Regular rate and rhythm, normal S1 and S2, no gallops, no murmurs, no rubs ABDOMEN: Soft, obese, nontender. No hepatosplenomegaly, normal bowel sounds, no guarding or rigidity. EXTREMITIES: No clubbing, no edema, no cyanosis, and upper and lower extremities. Right lower extremity is cool to touch, with diminished pulses in the popliteal and dorsalis pedis, the surgeon is aware of the ischemic changes in the right leg, left foot is warm, good pulses in the left leg MUSCULOSKELETAL: Muscle strength and tone normal. SPINE: No scoliosis or deformity SKIN: No rashes, left groin incision is clean dry and intact, covered with dressing CENTRAL NERVOUS SYSTEM: Alert and oriented -2. No focal deficits, tone is n ormal in all 4 extremities. PSYCHIATRIC: Alert and oriented -2. Appropriate affect. Intact judgment and insight. - Labs CBC & Chem 7: 07/27/19 05:00 07/27/19 05:00 Labs: Abnormal Lab Results - Last 24 Hours (Table) 07/26/19 07/27/19 07/27/19 Range/Units 11:34 05:00 05:00 Lymphocytes # 0.9 L (1.0-4.8) k/uL APTT (22.0-30.0) sec BUN 18 H (7-17) mg/dL Creatinine 1.07 H (0.52-1.04) mg/dL Glucose 126 H (74-99) mg/dL POC Glucose (mg/dL) 104 H (75-99) mg/dL Calcium 8.3 L (8.4-10.2) mg/dL AST 101 H (14-36) U/L Total Protein 5.6 L (6.3-8.2) g/dL Albumin 2.9 L (3.5-5.0) g/dL 07/27/19 Range/Units 05:00 Lymphocytes # (1.0-4.8) k/uL APTT 44.4 H (22.0-30.0) sec BUN (7-17) mg/dL Creatinine (0.52-1.04) mg/dL Glucose (74-99) mg/dL POC Glucose (mg/dL) (75-99) mg/dL Calcium (8.4-10.2) mg/dL AST (14-36) U/L Total Protein (6.3-8.2) g/dL Albumin (3.5-5.0) g/dL Microbiology - Last 24 Hours (Table) 07/25/19 12:45 Blood Culture - Preliminary Blood No Growth after 24 hours Assessment and Plan Plan: Assessment: Acute thrombosis of the left iliac system and other segments requiring embolectomy, postoperative day #2 Failure to wean post surgery requiring reintubation and ventilatory support, expected in 84-year-old with dementia and underlying acute on chronic systolic congestive heart failure, also secondary to history of underlying COPD. Patient was successfully extubated on 07/26/2019 Postoperative hypoxic respiratory failure secondary to above, mostly acute on chronic systolic congestive heart failure. Required reintubation. This is again expected considering the patient's clinical condition History of underlying COPD, patient is normally on oxygen at home and nebulizer treatment. Presently inactive. History of advanced dementia mostly Alzheimer's type. History of hypothyroidism Plan: Discontinue Levophed, patient is hemodynamically stable, she is awake and alert, pleasant, cooperative. In no acute distress, his labs have been reviewed, today's chest x-ray has been reviewed showing mild residual patchy retrocardiac and left basilar density. Patient was given a dose of Lasix and patient is on maintenance dose of oral Lasix twice daily. Vital signs are stable, no fever or chills, incentive spirometry to the bedside, encourage deep breathing and coughing, deep breathing and coughing. Anticoagulation per vascular surgery. No acute events overnight, from pulmonary/critical care perspective patient is stable to transfer out of ICU to selective care unit I performed a history & physical examination of the patient and discussed their management with my nurse practitioner, Wanda Lopez. I reviewed the nurse practitioner's note and agree with the documented findings and plan of care. Lung sounds are positive for diminished breath sounds with scattered rhonchi. The findings and the impression was discussed with the patient. I attest to the documentation by the nurse practitioner. Time with Patient: Less than 30
--- NOTE | 2019-07-27 11:36 | P.PN ---
Subjective Progress Note Date: 07/27/19 The patient is seen and examined in the ICU, post op day 2 status post lower extremity thrombectomy for embolic occlusive disease. The patient is sitting up, has been extubated and doing well. Patient denies any pain. No acute changes through the night. Harmon catheter in place. Objective - Vital Signs Vital signs: Vital Signs Temp 98.4 F 07/27/19 08:00 Pulse 117 H 07/27/19 10:00 Resp 31 H 07/27/19 10:00 BP 160/110 07/25/19 15:14 Pulse Ox 93 L 07/27/19 10:00 Intake & Output 07/26/19 07/27/19 07/27/19 18:59 06:59 18:59 Intake Total 1294.191 688.987 60 Output Total 390 780 115 Balance 904.191 -91.013 -55 Weight 107.7 kg Intake: IV 1100 295 60 KVO 220 60 Lactated Ringers 1,000 ml 900 75 @ 20 mls/hr IV .Q24H [facility] Rx#:[id number] Potassium Chloride 10 meq 200 In Water For Injection 1 100ml.bag @ 100 mls/hr IVPB Q1H [facility] Rx#: [id number] Intake, IV Titration 194.191 243.987 Amount Heparin Sod,Pork in 0.45% 243.987 NaCl 25,000 unit In 0.45 % NaCl 1 250ml.bag @ 8.8 UNITS/KG/HR 9.979 mls/hr IV .Q24H [facility] Rx#: [id number] Norepinephrine 4 mg In 111.07 0 Sodium Chloride 0.9% 250 ml @ 0.05 MCG/KG/MIN 21. 602 mls/hr IV .[id number] [facility] Rx#:[id number] Propofol 1,000 mg In 83.121 Empty Bag 1 bag @ Titrate IV .Q0M [facility]KE Rx#: [id number] Oral 150 Output: Urine 390 780 115 Other: Voiding Method Indwelling Catheter Indwelling Catheter Indwelling Catheter ABP, PAP, CO, CI - Last Documented Arterial Blood Pressure 103/47 - Exam General appearance: The patient is alert, oriented, in no acute distress. HET: Head is normocephalic and atraumatic. Neck: Supple without lymphadenopathy. Trachea midline. Heart: S1 S2. Regular rate and rhythm. Lungs: No crackles or wheezes are heard. Abdomen: Soft, nontender, nondistended with bowel sounds. No peritoneal signs. No palpable organomegaly or masses. Groin: Left groin with saturated dressing, which was removed. Large clot noted on the dressing. Incision well approximated with kelvin, no active bleeding. No signs of hematoma. Extremities: Normal skin color and turgor. Edema bilaterally. Warm to touch, good capillary refill. Positive AT and PT doppler signal. Patient unable to move left lower extremity however nursing staff states this is not a new finding. - Labs CBC & Chem 7: 07/27/19 05:00 07/27/19 05:00 Labs: Abnormal Lab Results - Last 24 Hours (Table) 07/26/19 07/27/19 07/27/19 Range/Units 11:34 05:00 05:00 Lymphocytes # 0.9 L (1.0-4.8) k/uL APTT (22.0-30.0) sec BUN 18 H (7-17) mg/dL Creatinine 1.07 H (0.52-1.04) mg/dL Glucose 126 H (74-99) mg/dL POC Glucose (mg/dL) 104 H (75-99) mg/dL Calcium 8.3 L (8.4-10.2) mg/dL AST 101 H (14-36) U/L Total Protein 5.6 L (6.3-8.2) g/dL Albumin 2.9 L (3.5-5.0) g/dL 07/27/19 Range/Units 05:00 Lymphocytes # (1.0-4.8) k/uL APTT 44.4 H (22.0-30.0) sec BUN (7-17) mg/dL Creatinine (0.52-1.04) mg/dL Glucose (74-99) mg/dL POC Glucose (mg/dL) (75-99) mg/dL Calcium (8.4-10.2) mg/dL AST (14-36) U/L Total Protein (6.3-8.2) g/dL Albumin (3.5-5.0) g/dL Microbiology - Last 24 Hours (Table) 07/25/19 12:45 Blood Culture - Preliminary Blood No Growth after 24 hours Assessment and Plan Assessment: #1 status post left ileal amoral/popliteal embolectomy with adventism of adequate arterial perfusion left lower extremity. #2 Chronic atrial fibrillation Plan: Dressing change was done today. Continue to monitor incision site for bleeding and hematoma. Recommend continued anticoagulation to help prevent from future embolism, this decision will be left up to the primary care provider. Further recommendations to follow. The above dictated assessment and findings were discussed with Dr. Ureña. The impression and plan of care have been directed as dictated.
[2019-07-27 11:41] LABS: Hemoglobin A1C 5.4 % (4.0-6.0)
--- NOTE | 2019-07-27 11:45 | ECHOF ---
Referral Reason:lvfunction MEASUREMENTS -------- HEIGHT: 162.6 cm WEIGHT: 108.9 kg BP: 142/67 RVIDd: 2.7 cm (< 3.3) IVSd: 1.1 cm (0.6 - 1.1) LVIDd: 3.5 cm (3.9 - 5.3) LVPWd: 1.1 cm (0.6 - 1.1) IVSs: 1.6 cm LVIDs: 2.7 cm LVPWs: 1.8 cm LA Diam: 4.0 cm (2.7 - 3.8) Ao Diam: 2.7 cm (2.0 - 3.7) AV Cusp: 1.6 cm (1.5 - 2.6) MV EXCURSION: 12.451 mm (> 18.000) MV EF SLOPE: 218 mm/s (70 - 150) EPSS: 0.6 cm RAP: 5.00 mmHg RVSP: 35.92 mmHg FINDINGS -------- Atrial fibrillation. This was a technically difficult study with suboptimal views. The left ventricular size is normal. There is borderline concentric left ventricular hypertrophy. Overall left ventricular systolic function is normal with, an EF between 60 - 65 %. The right ventricle is normal in size. The left atrium is mildly dilated. The right atrium is normal in size. Lumason used There is mild aortic valve sclerosis. The mitral valve leaflets are mildly thickened. Mild mitral annular calcification present. Mild m itral regurgitation is present. Moderate to severe tricuspid regurgitation present. There is mild pulmonary hypertension. The rig ht ventricular systolic pressure, as measured by Doppler, is 35.92mmHg. Trace/mild (physiologic) pulmonic regurgitation. The aortic root size is normal. IVC Not well visulized. There is no pericardial effusion. CONCLUSIONS -------- 1. Atrial fibrillation. 2. This was a technically difficult study with suboptimal views. 3. The left ventricular size is normal. 4. There is borderline concentric left ventricular hypertrophy. 5. Overall left ventricular systolic function is normal with, an EF between 60 - 65 %. 6. The right ventricle is normal in size. 7. The right atrium is normal in size. 8. Lumason used 9. There is mild aortic valve sclerosis. 10. The mitral valve leaflets are mildly thickened. 11. Mild mitral annular calcification present. 12. Mild mitral regurgitation is present. 13. Moderate to severe tricuspid regurgitation present. 14. There is mild pulmonary hypertension. 15. The right ventricular systolic pressure, as measured by Doppler, is 35.92mmHg. 16. Trace/mild (physiologic) pulmonic regurgitation. 17. The aortic root size is normal. 18. IVC Not well visulized. 19. There is no pericardial effusion. NUCLEAR MEDICINE TECHNOLOGIST: Priya Joiner RDCS
[2019-07-27 11:55] LABS: Glucose,Whole Blood 143 mg/dL (75-99)
--- NOTE | 2019-07-27 12:03 | P.PN ---
Subjective Progress Note Date: 07/27/19 84-year-old female one of my patient in [facility] for the last 5 years with past medical history of mild CHF systolic dysfunction, recurrent UTI, COPD, advanced dementia, and hypothyroidism who was seen this last week for Route monthly around was doing well she developed to have an acute pain and discomfort in the left leg for few hours earlier and a blood to have cold foot and leg was suspected to be arterial thrombus patient was sent to [facility] was tested and seen by vascular and agree that she had iliac and femoral occlusion as a thrombus in the left side patient be taken to the OR by vascular for thrombectomy in the meanwhile she is doing slightly but better found to have A. fib with RVR nonsustained never been diagnosed and treated for the past she is not a good candidate for an anticoagulation as a long-term. Patient will be hospitalized after procedure for the above problem. 07/25: Patient had her thrombectomy yesterday with vascular was off the vent for sure. Of time and have to be reintubated back on the ventilator management, patient is on a small dose of vasopressor currently and been sedated her thrombectomy site looks good to the leg is warmer than the right side today. Hemodynamically stable but her comorbidity for all dextro medical problem is much higher than normal. 07/26: Patient remains in the intensive care unit. She has been successfully extubated. Chest x-ray this morning reveals mild residual interstitial density remains. Additional patchy left basilar and retrocardiac atelectasis consolidation also remains. Echocardiogram reveals EF 60-65% with mild aortic valve sclerosis, mild mitral regurgitation, moderate to severe tricuspid re gurgitation, mild pulmonary hypertension. Patient is currently on heparin drip and has been cleared by vascular surgeon to start oral anticoagulation. Patient was restarted on eliquis 5 mg twice daily. Nursing states that she removed the dressing this morning and there was a large blood clot and will monitor closely for any active bleeding. Currently no active bleeding. Patient has warmth and good pulses to both lower extremities. Harmon catheter is in place. Patient has been afebrile, heart rate 99, blood pressure 103/47, pulse ox 93% on 3 L nasal cannula. Repeat lab work reveals essentially normal CBC, electrolytes normal, BUN 18 creatinine 1.07. Blood sugars have been running between 104 126. AST 101, bilirubin 0.8, ALT 27, alkaline phosphatase 95. Albumin 2.9. Blood culture showing no growth at 24 hours. Discharge plan will be for patient to return to [facility] at the time of discharge. Objective - Vital Signs Vital signs: Vital Signs Temp 98.4 F 07/27/19 08:00 Pulse 117 H 07/27/19 10:00 Resp 31 H 07/27/19 10:00 BP 160/110 07/25/19 15:14 Pulse Ox 93 L 07/27/19 10:00 Intake & Output 07/26/19 07/27/19 07/27/19 18:59 06:59 18:59 Intake Total 1294.191 688.987 60 Output Total 390 780 115 Balance 904.191 -91.013 -55 Weight 107.7 kg Intake: IV 1100 295 60 KVO 220 60 Lactated Ringers 1,000 ml 900 75 @ 20 mls/hr IV .Q24H [facility]KE Rx#:[id number] Potassium Chloride 10 meq 200 In Water For Injection 1 100ml.bag @ 100 mls/hr IVPB Q1H [facility]KE Rx#: [id number] Intake, IV Titration 194.191 243.987 Amount Heparin Sod,Pork in 0.45% 243.987 NaCl 25,000 unit In 0.45 % NaCl 1 250ml.bag @ 8.8 UNITS/KG/HR 9.979 mls/hr IV .Q24H [facility]KE Rx#: [id number] Norepinephrine 4 mg In 111.07 0 Sodium Chloride 0.9% 250 ml @ 0.05 MCG/KG/MIN 21. 602 mls/hr IV .[id number] [facility]KE Rx#:[id number] Propofol 1,000 mg In 83.121 Empty Bag 1 bag @ Titrate IV .Q0M MIKE Rx#: [id number] Oral 150 Output: Urine 390 780 115 Other: Voiding Method Indwelling Catheter Indwelling Catheter Indwelling Catheter ABP, PAP, CO, CI - Last Documented Arterial Blood Pressure 103/47 - Exam Review of Systems CONSTITUTIONAL: Well-developed no acute respiratory distress. Morbidly obese, resting comfortably in ICU bed, denies fever, denies chills EYES: No icterus sclerae, no conjunctivitis. EARS, NOSE, MOUTH, THROAT, and FACE: No sore throat, lymphadenopathy, carotid bruits or deformity. RESPIRATORY: Mild shortness of breath no cough or wheezes. CARDIOVASCULAR: Positive PND orthopnea palpitations with new onset of A. fib with pulse rate running in the 70s. GASTROINTESTINAL: No Abd pain, Nausea or vomiting, no Diarrhea or constipation, No GI Bleed, no distention or masses. GENITOURINARY: Negative for Hematuria or UTI, no kidney stones. Recurrent i ncontinence with recurrent UTI with no recent infection. INTEGUMENT/BREAST: Negative for any muscular injury with mild osteoarthritis.. HEMATOLOGIC/LYMPHATIC: Negative for bleed or purpura. MUSCULOSKELTAL: Negative for Myalgia or arthralgia. NEURLOGICAL: No LOC, Sz or syncope, blurred vision dizziness or abnormality.. Significant memory loss and dementia. BEHAVIORAL/PSYCH: Negative. ENDOCRINE: Negative. Physical examination General Appearance: Alert, cooperative, no distress, appears stated age. Morbidly obese laying in bed doesn't look much pain. Neck HEENT: Supple, no lymphadenopathy, no thyroid enlargement, no carotid bruits. Lungs: Decreased breath sound bilaterally with fine rhonchi no crackles or wheezes. Chest Wall: Decrease expansion with deep inspiration no tenderness and no deformity was found on exam, no costochondral pain or discomfort. Heart: Irregular Rhythm and rate and rhythm, S1, S2 positive S3 with systolic murmur in the apex Back: Symmetric, no curvature, ROM normal, no CVA tenderness. Abdomen: Soft, non-tender, bowel sounds active all four quadrants, no masses, no organomegaly. Extremities: Dressing in place to the left groin. 1+ edema bilaterally. Pulses palpable bilaterally, warm to the touch. Pulses: Decrease in the left compared to the right. Skin: Skin color, texture, tugor normal, no rashes or lesions. Neurologic: Alert oriented significant confusion cranial nerves II 12 intact positive severe advanced dementia able to move all her 4 extremity with severe abnormal balance and gait. - Labs CBC & Chem 7: 07/27/19 05:00 07/27/19 05:00 Labs: Abnormal Lab Results - Last 24 Hours (Table) 07/26/19 07/27/19 07/27/19 Range/Units 11:34 05:00 05:00 Lymphocytes # 0.9 L (1.0-4.8) k/uL APTT (22.0-30.0) sec BUN 18 H (7-17) mg/dL Creatinine 1.07 H (0.52-1.04) mg/dL Glucose 126 H (74-99) mg/dL POC Glucose (mg/dL) 104 H (75-99) mg/dL Calcium 8.3 L (8.4-10.2) mg/dL AST 101 H (14-36) U/L Total Protein 5.6 L (6.3-8.2) g/dL Albumin 2.9 L (3.5-5.0) g/dL 07/27/19 Range/Units 05:00 Lymphocytes # (1.0-4.8) k/uL APTT 44.4 H (22.0-30.0) sec BUN (7-17) mg/dL Creatinine (0.52-1.04) mg/dL Glucose (74-99) mg/dL POC Glucose (mg/dL) (75-99) mg/dL Calcium (8.4-10.2) mg/dL AST (14-36) U/L Total Protein (6.3-8.2) g/dL Albumin (3.5-5.0) g/dL Microbiology - Last 24 Hours (Table) 07/25/19 12:45 Blood Culture - Preliminary Blood No Growth after 24 hours Assessment and Plan Plan: 1. Acute thrombus event in the left popliteal and femoral artery, status post embolectomy. Patient is currently on heparin drip and will be transitioned to oral eliquis. 2. Acute hypoxic respiratory failure with vent require postsurgical complication with hypoxia. Patient has been successfully extubated. 3. Pulseless leg and the left side secondary to acute thrombus event at a clear whether this is caused by the A. fib or had any significant CAD component. 4. Chronic atrial fibrillation. Continue Lopressor 50 mg twice daily, start eliquis. 5. COPD: Has been on oxygen and updraft treatment [id number] continue medication. Continue DuoNeb treatments 4 times daily. 6. Acute on chronic systolic heart failure. Patient is currently on oral Lasix 40 mg twice daily. Continue Lopressor. 7. Advanced Alzheimer's dementia. Continue Abilify 7 mg daily. 8. Hyperglycemia without diagnosis of diabetes. Continue Accu-Chek with sliding scales coverage. 9. Hypothyroidism. Continue levothyroxine at 125 g daily. 10. GI prophylaxis: Patient will be on pantoprazole. 11 DVT prophylaxis. Transitioned to eliquis CODE STATUS: Full code. Discharge plan: Return to [facility] Impression and plan of care have been directed as dictated by the signing physician. Rosa Elena Damon nurse practitioner acting as scribe for signing physician.
[2019-07-27] MEDS: INSULIN ASPART (NovoLOG) 100 UNIT/ML VIAL SQ SCH ×3 (12:16→20:57)
[2019-07-27] MEDS: APIXABAN 5 MG TAB PO SCH ×2 (12:16→20:56)
[2019-07-27 16:29] LABS: Glucose,Whole Blood 124 mg/dL (75-99)
[2019-07-27] MEDS ORDERED: METOPROLOL TARTRATE 25 MG TAB PO ONE (18:45)
[2019-07-27] MEDS ORDERED: METOPROLOL TARTRATE 25 MG TAB PO SCH (18:45)
[2019-07-27] MEDS: DILTIAZEM 125 MG in SODIUM CHLORIDE 0.9% 100 ML IV SCH (18:51)
[2019-07-27 20:32] LABS: Glucose,Whole Blood 152 mg/dL (75-99)
[2019-07-27] MEDS: LACTATED RINGERS 1,000 ML IV SCH (21:03)
[2019-07-27] MEDS ORDERED: SODIUM CHLORIDE 0.9% 1,000 ML IV ONE (22:47)
[2019-07-28] MEDS: NOREPINEPHRINE 4 MG in SODIUM CHLORIDE 0.9% 250 ML IV SCH ×2 (00:56→11:41)
[2019-07-28 05:29] LABS: HCT 29.7 % (34.0-46.0); MCH 29.7 pg (25.0-35.0); MCHC 32.6 g/dL (31.0-37.0); MCV 91.2 fL (80.0-100.0); Mean Platelet Volume 11.3; Platelet Count 153 k/uL (150-450); RBC 3.26 m/uL (3.80-5.40); RDW 13.6 % (11.5-15.5); WBC 7.8 k/uL (3.8-10.6)
[2019-07-28 05:40] LABS: HGB 9.7 gm/dL (11.4-16.0)
[2019-07-28 06:01] LABS: Calcium 7.8 mg/dL (8.4-10.2); Potassium 3.3 mmol/L (3.5-5.1)
[2019-07-28 06:51] LABS: Glucose,Whole Blood 120 mg/dL (75-99)
[2019-07-28] MEDS: INSULIN ASPART (NovoLOG) 100 UNIT/ML VIAL SQ SCH ×4 (07:38→20:20)
--- NOTE | 2019-07-28 08:03 | XR ---
EXAMINATION TYPE: XR chest 1V portable DATE OF EXAM: 07/28/2019 CLINICAL HISTORY: Difficulty breathing progress study. TECHNIQUE: Single AP portable upright view of the chest is obtained. COMPARISON: Chest x-ray from one day earlier and older studies. FINDINGS: There is worsening alveolar and interstitial opacities bilaterally. Persistent low lung vo lumes. Cardiac silhouette size stable and upper limits of normal with atherosclerotic aorta. Osseous structures are demineralized. Surgical change to the lumbar spine is partially imaged. Cholecystectom y clips are seen. Old left-sided posterior lateral fourth rib fracture. Small to tiny bilateral pleur al effusions. IMPRESSION: Worsening diffuse bilateral alveolar and interstitial edema and/or infiltrates on backgro und low lung volumes and suspected chronic parenchymal changes with persistent stable small to tiny b ilateral pleural effusions.
[2019-07-28] MEDS: DILTIAZEM 125 MG in SODIUM CHLORIDE 0.9% 100 ML IV SCH ×2 (08:07→20:20)
[2019-07-28] MEDS: ARIPiprazole 5 MG TAB PO SCH (08:15)
[2019-07-28] MEDS: LORATADINE 10 MG TAB PO SCH (08:15)
[2019-07-28] MEDS: PANTOPRAZOLE 40 MG TABLET PO SCH (08:15)
[2019-07-28] MEDS: ARIPiprazole 2 MG TAB PO SCH (08:15)
[2019-07-28] MEDS: CALCIUM CARBONATE 500 MG CHEWABLE PO SCH (08:17)
[2019-07-28] MEDS: METOPROLOL TARTRATE 25 MG TAB PO SCH ×2 (08:17→16:29)
[2019-07-28] MEDS: POTASSIUM CHLORIDE ER 20 MEQ TAB.ER PO SCH ×2 (08:18→10:19)
[2019-07-28] MEDS: APIXABAN 5 MG TAB PO SCH ×2 (08:18→20:19)
[2019-07-28] MEDS: LEVOTHYROXINE 125 MCG TAB PO SCH (08:18)
[2019-07-28] MEDS: FUROSEMIDE 40 MG TAB PO SCH ×2 (08:18→16:29)
[2019-07-28] MEDS: LACTOBACILLUS ACIDOPH & BULGAR 1 EACH PACKET PO SCH (08:18)
[2019-07-28] MEDS: POTASSIUM CHLORIDE ER 10 MEQ TAB.ER.PRT PO SCH (08:18)
[2019-07-28] MEDS: IPRATROPIUM-ALBUTEROL 3 ML NEB INHALATION SCH ×4 (08:19→18:55)
[2019-07-28] MEDS: KETOTIFEN 0.025% OPHTH DROPS 5 ML BTL BOTH EYES SCH ×2 (08:19→16:29)
--- NOTE | 2019-07-28 09:30 | P.PN ---
Subjective Progress Note Date: 07/28/19 Principal diagnosis: Post embolectomy of the left common external iliac as well as left common femoral profundus femoris and superficial femoral arterial segments This is an 84-year-old female, presented to the ER yesterday with sudden onset of left lower extremity pain and discoloration. Physical examination revealed absent femoral popliteal and pedal pulses on the left side. Decreased motor and sensory function was noted in the left leg, and there was some mottling of the foot. Calf was also affected. Patient had CT angiogram which showed occlusion of the left common and external iliac segments as well as the left common profundus and superficial femoral arterial segments. Patient was also in atrial fibrillation not on anticoagulation therapy and this was felt to be embolic event. Patient was seen by vascular surgery on consultation, underwent embolectomy of the left common 6 external iliac as well as the left common femoral, profundus femoris, and superficial femoral arterial segments. Postoperatively patient was on mechanical ventilation, and I was asked to see her on consultation. I saw the patient this morning, still on mechanical ventilation, patient was on propofol at 10 mcg/kg/m, discontinued her propofol, place the patient for about an hour on pressure support of 8 and CPAP, she was moving over 370 mL and tidal volume, and her respiratory rate was about 26. Patient seems to be comfortable, hence recommended extubating the patient to a nasal cannula. On 07/27/2019 patient seen in follow-up in the intensive care unit. She is awake and alert, resting in bed, in no acute distress, currently on 4 L of oxygen with a pulse ox of 97%, she is hemodynamically stable, she remains on a small amount of Levofed at 2 mics per minute, which can turned off, as a current blood pressure is 137/68, slightly tachycardic, with a rate of 107 BPM, patient is afebrile, she remains on lactated Ringer's rate of 20 ML per hour, heparin drip at weight-based protocol. This is postoperative day 2, status post embolectomy of the left common external iliac as well as left common femoral profundus femoris and superficial femoral arterial segments. Lung sounds are positive for scattered rhonchi, patient does have a effective cough, she will need incentive spirometry. Today's labs have been reviewed with blood cell count is 8.8, hemoglobin is 12.0, electrolytes were within normal limits, BUN of 18 creatinine is 1.0. Left leg is warm to touch, no complaints of numbness or tingling no pain. On 07/28/2019 patient seen in follow-up in the intensive care units. She is awake and alert, she is only oriented to person, she knew she was in [place], but did not know she was in the hospital, disoriented to month and the year, but not the president. Denies any acute distress, denies any pain, no shortness of breath, patient has been in and out of A. fib RVR, requiring a Cardizem infusion, it is currently on hold. Patient remains in A. fib, with a rate of 80-90 BPM. He is on oral anticoagulation in the form of Eliquis, heparin drip has been discontinued, there was some mild amount of oozing from the left groin incision site, which is currently controlled, left groin is clean dry and intact, covered with a dressing. Bilateral pedal pulses are palpable, both feet are warm, no complaints of numbness or paresthesias. Levofed has been on hold, patient was given a liter bolus last night, hemodynamically stable. Today's labs have been reviewed, showing white blood cell, 7.8, hemoglobin of 9.7, sodium of 136, potassium 3.3, chloride is 101, CO2 32, B1 is 18, creatinine is 1.04, today's chest x-ray has been reviewed showing alveolar and interstitial edema in both lungs, low lung volumes, and stable small to tiny bilateral pleural effusions, patient remains on oral dose of Lasix at 40 mg every 12 hours. O2 saturation is 98% on 3 L. No complaints of shortness of breath, lung sounds reveal diminished breath sounds at the bases, with mild crackles. Objective - Vital Signs Vital signs: Vital Signs Temp 98.4 F 07/28/19 08:00 Pulse 80 07/28/19 09:00 Resp 11 L 07/28/19 09:00 BP 129/96 07/28/19 09:00 Pulse Ox 93 L 07/28/19 09:00 Intake & Output 07/27/19 07/28/19 07/28/19 18:59 06:59 18:59 Intake Total 600 1439.251 210 Output Total 630 650 90 Balance -30 789.251 120 Weight 110 kg Intake: IV 240 1300 90 KVO 240 80 30 Lactated Ringers 1,000 ml 220 60 @ 20 mls/hr IV .Q24H [facility] Rx#:[id number] Sodium Chloride 0.9% 1, 1000 000 ml @ 999 mls/hr IV . Q1H1M [facility] Rx#:[id number] Intake, IV Titration 139.251 Amount Diltiazem 125 mg In 41.250 Sodium Chloride 0.9% 100 ml @ 10 MG/HR 10 mls/hr IV .[id number] [facility] Rx#: [id number] Norepinephrine 4 mg In 98.001 Sodium Chloride 0.9% 250 ml @ 0.05 MCG/KG/MIN 20. 517 mls/hr IV .[id number] [facility] Rx#:[id number] Oral 360 120 Output: Urine 630 650 90 Other: Voiding Method Indwelling Catheter Indwelling Catheter ABP, PAP, CO, CI - Last Documented Arterial Blood Pressure 107/52 - Exam GENERAL EXAM: Alert, pleasant, 84-year-old white female, on 4 L of oxygen with a pulse ox of 98% resting comfortably in bed in the intensive care unit. EYES: Normal reaction of pupils, equal size. Conjunctiva pink, sclera white. NOSE: Clear with pink turbinates. THROAT: No erythema or exudates. NECK: No masses, no JVD, no thyroid enlargement, no adenopathy. CHEST: No chest wall deformity. Symmetrical expansion. LUNGS: Equal air entry with diffuse rhonchi CVS: Regular rate and rhythm, normal S1 and S2, no gallops, no murmurs, no rubs ABDOMEN: Soft, obese, nontender. No hepatosplenomegaly, normal bowel sounds, no guarding or rigidity. EXTREMITIES: No clubbing, no edema, no cyanosis, and upper and lower extr emities. Right and left lower extremity pedal pulses are 1+, skin is warm to touch, and no numbness or tingling MUSCULOSKELETAL: Muscle strength and tone normal. SPINE: No scoliosis or deformity SKIN: No rashes, left groin incision is clean dry and intact, covered with dressing CENTRAL NERVOUS SYSTEM: Alert and oriented -2. No focal deficits, tone is normal in all 4 extremities. PSYCHIATRIC: Alert and oriented -1. Appropriate affect. Intact judgment and insight. - Labs CBC & Chem 7: 07/28/19 05:20 07/28/19 05:20 Labs: Abnormal Lab Results - Last 24 Hours (Table) 07/27/19 07/27/19 07/27/19 Range/Units 11:54 16:27 20:30 RBC (3.80-5.40) m/uL Hgb (11.4-16.0) gm/dL Hct (34.0-46.0) % Sodium (137-145) mmol/L Potassium (3.5-5.1) mmol/L Carbon Dioxide (22-30) mmol/L BUN (7-17) mg/dL Glucose (74-99) mg/dL POC Glucose (mg/dL) 143 H 124 H 152 H (75-99) mg/dL Calcium (8.4-10.2) mg/dL 07/28/19 07/28/19 07/28/19 Range/Units 05:20 05:20 06:50 RBC 3.26 L (3.80-5.40) m/uL Hgb 9.7 L D (11.4-16.0) gm/dL Hct 29.7 L (34.0-46.0) % Sodium 136 L (137-145) mmol/L Potassium 3.3 L (3.5-5.1) mmol/L Carbon Dioxide 32 H (22-30) mmol/L BUN 18 H (7-17) mg/dL Glucose 118 H (74-99) mg/dL POC Glucose (mg/dL) 120 H (75-99) mg/dL Calcium 7.8 L (8.4-10.2) mg/dL Microbiology - Last 24 Hours (Table) 07/25/19 12:45 Blood Culture - Preliminary Blood No Growth after 48 hours Assessment and Plan Plan: Assessment: Acute thrombosis of the left iliac system and other segments requiring embolectomy, postoperative day #3 Failure to wean post surgery requiring reintubation and ventilatory support, expected in 84-year-old with dementia and underlying acute on chronic systolic congestive heart failure, also secondary to history of underlying COPD. Patient was successfully extubated on 07/26/2019 Postoperative hypoxic respiratory failure secondary to above, mostly acute on chronic systolic congestive heart failure. Required reintubation. This is again expected considering the patient's clinical condition History of underlying COPD, patient is normally on oxygen at home and nebulizer treatment. Presently inactive. History of advanced dementia mostly Alzheimer's type. History of hypothyroidism Plan: Incentive spirometry to the bedside, no specific complaints, hemodynamically stable, levo fed has been placed on hold, patient did have an episode of A. fib RVR last night, currently rate is better controlled, Cardizem drip is on hold, today's chest x-ray has been reviewed still showing alveolar and interstitial edema bilaterally, with small to tiny pleural effusions, will continue with oral dose of Lasix at 40 mg every 12 hours, no worsening dyspnea, patient has been switched over to oral anticoagulation, surgical site in the left groin clean dry and intact. Palpable pulses, no complaints of paresthesias or pain in bilateral lower extremities. Patient is stable to transfer out of intensive care unit today to [facility] care. I performed a history & physical examination of the patient and discussed their management with my nurse practitioner, Wanda Lopez. I reviewed the nurse practitioner's note and agree with the documented findings and plan of care. Lung sounds are positive for diminished breath sounds with scattered rhonchi. The findings and the impression was discussed with the patient. I attest to the documentation by the nurse practitioner. Time with Patient: Less than 30
[2019-07-28] MEDS ORDERED: DIGOXIN 250 MCG TAB PO SCH (10:00)
--- NOTE | 2019-07-28 10:42 | P.PN ---
Subjective Progress Note Date: 07/28/19 Was seen and examined in the ICU. Patient sitting up in no acute distress. Patient is alert and oriented. The patient went into A. fib with RVR through the night was started on a Cardizem drip as well as levothyroid, both have been turned off at this point. Patient has transitioned from heparin drip to Eliquis. Patient denies any pain to the left lower extremity, has some tenderness at the incision site. Denies any shortness of breath or chest pain at this time. Remains afebrile. Objective - Vital Signs Vital signs: Vital Signs Temp 98.4 F 07/28/19 08:00 Pulse 88 07/28/19 10:00 Resp 10 L 07/28/19 10:00 BP 129/96 07/28/19 09:00 Pulse Ox 96 07/28/19 10:00 Intake & Output 07/27/19 07/28/19 07/28/19 18:59 06:59 18:59 Intake Total 600 1439.251 240 Output Total 630 650 165 Balance -30 789.251 75 Weight 110 kg Intake: IV 240 1300 120 KVO 240 80 40 Lactated Ringers 1,000 ml 220 80 @ 20 mls/hr IV .Q24H [facility] Rx#:[id number] Sodium Chloride 0.9% 1, 1000 000 ml @ 999 mls/hr IV . Q1H1M [facility] Rx#:[id number] Intake, IV Titration 139.251 Amount Diltiazem 125 mg In 41.250 Sodium Chloride 0.9% 100 ml @ 10 MG/HR 10 mls/hr IV .[id number] [facility] Rx#: [id number] Norepinephrine 4 mg In 98.001 Sodium Chloride 0.9% 250 ml @ 0.05 MCG/KG/MIN 20. 517 mls/hr IV .[id number] [facility] Rx#:[id number] Oral 360 120 Output: Urine 630 650 165 Other: Voiding Method Indwelling Catheter Indwelling Catheter Indwelling Catheter ABP, PAP, CO, CI - Last Documented Arterial Blood Pressure 99/46 - Exam General appearance: The patient is alert, oriented, in no acute distress. HET: Head is normocephalic and atraumatic. Neck: Supple without lymphadenopathy. Trachea midline. Heart: S1 S2. Regular rate and rhythm. Lungs: No crackles or wheezes are heard. Abdomen: Soft, nontender, nondistended with bowel sounds. Groin: Left groin with dressing with small amount of serosanguineous drainage. Incision well approximated with kelvin, no active bleeding. No signs of hematoma. Extremities: Normal skin color and turgor. Edema bilaterally. Warm to touch, good capillary refill. Left lower extremity with positive PT and DP Doppler signal. Patient was able to move the left lower extremity and foot, sensory and motor intact. - Labs CBC & Chem 7: 07/28/19 05:20 07/28/19 05:20 Labs: Abnormal Lab Results - Last 24 Hours (Table) 07/27/19 07/27/19 07/27/19 Range/Units 11:54 16:27 20:30 RBC (3.80-5.40) m/uL Hgb (11.4-16.0) gm/dL Hct (34.0-46.0) % Sodium (137-145) mmol/L Potassium (3.5-5.1) mmol/L Carbon Dioxide (22-30) mmol/L BUN (7-17) mg/dL Glucose (74-99) mg/dL POC Glucose (mg/dL) 143 H 124 H 152 H (75-99) mg/dL Calcium (8.4-10.2) mg/dL 07/28/19 07/28/19 07/28/19 Range/Units 05:20 05:20 06:50 RBC 3.26 L (3.80-5.40) m/uL Hgb 9.7 L D (11.4-16.0) gm/dL Hct 29.7 L (34.0-46.0) % Sodium 136 L (137-145) mmol/L Potassium 3.3 L (3.5-5.1) mmol/L Carbon Dioxide 32 H (22-30) mmol/L BUN 18 H (7-17) mg/dL Glucose 118 H (74-99) mg/dL POC Glucose (mg/dL) 120 H (75-99) mg/dL Calcium 7.8 L (8.4-10.2) mg/dL Microbiology - Last 24 Hours (Table) 07/25/19 12:45 Blood Culture - Preliminary Blood No Growth after 48 hours Assessment and Plan Assessment: #1 status post left ileal amoral/popliteal embolectomy with adventist of adequate arterial perfusion left lower extremity. #2 Chronic atrial fibrillation Plan: Dressing change was done today. Continue to monitor incision site for bleeding and hematoma. Patient may be discharged from a vascular surgery standpoint, once medically stabilized and cleared. Patient to follow-up with Dr. Ordoñez in two weeks upon discharge. The above dictated assessment and findings were discussed with Dr. Ureña. The impression and plan of care have been directed as dictated.
--- NOTE | 2019-07-28 12:16 | P.PN ---
Subjective Progress Note Date: 07/28/19 84-year-old female one of my patient in [facility] for the last 5 years with past medical history of mild CHF systolic dysfunction, recurrent UTI, COPD, advanced dementia, and hypothyroidism who was seen this last week for Route monthly around was doing well she developed to have an acute pain and discomfort in the left leg for few hours earlier and a blood to have cold foot and leg was suspected to be arterial thrombus patient was sent to [facility] was tested and seen by vascular and agree that she had iliac and femoral occlusion as a thrombus in the left side patient be taken to the OR by vascular for thrombectomy in the meanwhile she is doing slightly but better found to have A. fib with RVR nonsustained never been diagnosed and treated for the past she is not a good candidate for an anticoagulation as a long-term. Patient will be hospitalized after procedure for the above problem. 07/25: Patient had her thrombectomy yesterday with vascular was off the vent for sure. Of time and have to be reintubated back on the ventilator management, patient is on a small dose of vasopressor currently and been sedated her thrombectomy site looks good to the leg is warmer than the right side today. Hemodynamically stable but her comorbidity for all dextro medical problem is much higher than normal. 07/26: Patient remains in the intensive care unit. She has been successfully extubated. Chest x-ray this morning reveals mild residual interstitial density remains. Additional patchy left basilar and retrocardiac atelectasis consolidation also remains. Echocardiogram reveals EF 60-65% with mild aortic valve sclerosis, mild mitral regurgitation, moderate to severe tricuspid re gurgitation, mild pulmonary hypertension. Patient is currently on heparin drip and has been cleared by vascular surgeon to start oral anticoagulation. Patient was restarted on eliquis 5 mg twice daily. Nursing states that she removed the dressing this morning and there was a large blood clot and will monitor closely for any active bleeding. Currently no active bleeding. Patient has warmth and good pulses to both lower extremities. Harmon catheter is in place. Patient has been afebrile, heart rate 99, blood pressure 103/47, pulse ox 93% on 3 L nasal cannula. Repeat lab work reveals essentially normal CBC, electrolytes normal, BUN 18 creatinine 1.07. Blood sugars have been running between 104 126. AST 101, bilirubin 0.8, ALT 27, alkaline phosphatase 95. Albumin 2.9. Blood culture showing no growth at 24 hours. Discharge plan will be for patient to return to [facility] at the time of discharge. 07/27: Patient remains in intensive care unit. Patient developed A. fib with RVR and was started on Cardizem drip and also Lopressor was increased to 75 mg twice daily. Patient was then hypotensive and started on levo fed. Cardiology was contacted last evening for orders but were not on consult. Patient has subsequently been weaned off Cardizem drip and and levo fed. Discussed case with Dr. Muniz and we have also added and digoxin 250 g once followed by 125 g daily. Dressing was changed this morning and there was only a small amount of blood on the dressing. No active bleeding. Patient is doing well with eliquis. Vascular surgery has cleared the patient for discharge for tomorrow. Patient will be returning to [facility]. Plan is to monitor heart rate overnight and plan for discharge to [facility] tomorrow. Patient is afebrile, heart rate 89, blood pressure 97/43, pulse ox 98% on room air. Repeat blood work reveals WBC 7.8, hemoglobin 9.7, platelet count 153. Sodium 136, potassium 3.3, chloride 101, CO2 32, BUN 18 and creatinine 1.04. Blood sugars running between 118 and 152. TSH 1.330. Potassium has been replaced. Objective - Vital Signs Vital signs: Vital Signs Temp 98.4 F 07/28/19 08:00 Pulse 88 07/28/19 10:00 Resp 10 L 07/28/19 10:00 BP 129/96 07/28/19 09:00 Pulse Ox 96 07/28/19 10:00 Intake & Output 07/27/19 07/28/19 07/28/19 18:59 06:59 18:59 Intake Total 600 1439.251 240 Output Total 630 650 165 Balance -30 789.251 75 Weight 110 kg Intake: IV 240 1300 120 KVO 240 80 40 Lactated Ringers 1,000 ml 220 80 @ 20 mls/hr IV .Q24H [facility] Rx#:[id number] Sodium Chloride 0.9% 1, 1000 000 ml @ 999 mls/hr IV . Q1H1M [facility] Rx#:[id number] Intake, IV Titration 139.251 Amount Diltiazem 125 mg In 41.250 Sodium Chloride 0.9% 100 ml @ 10 MG/HR 10 mls/hr IV .[id number] [facility] Rx#: [id number] Norepinephrine 4 mg In 98.001 Sodium Chloride 0.9% 250 ml @ 0.05 MCG/KG/MIN 20. 517 mls/hr IV .[id number] [facility] Rx#:[id number] Oral 360 120 Output: Urine 630 650 165 Other: Voiding Method Indwelling Catheter Indwelling Catheter Indwelling Catheter ABP, PAP, CO, CI - Last Documented Arterial Blood Pressure 99/46 - Exam Review of Systems CONSTITUTIONAL: Well-developed no acute respiratory distress. Morbidly obese, resting comfortably in ICU bed, denies fever, denies chills EYES: No icterus sclerae, no conjunctivitis. EARS, NOSE, MOUTH, THROAT, and FACE: No sore throat, lymphadenopathy, carotid bruits or deformity. RESPIRATORY: Mild shortness of breath no cough or wheezes. CARDIOVASCULAR: Positive PND orthopnea palpitations with new onset of A. fib with pulse rate running in the 70s. GASTROINTESTINAL: No Abd pain, Nausea or vomiting, no Diarrhea or constipation, No GI Bleed, no distention or masses. GENITOURINARY: Negative for Hematuria or UTI, no kidney stones. Recurrent incontinence with no recent infection. INTEGUMENT/BREAST: Negative for any muscular injury with mild osteoarthritis.. HEMATOLOGIC/LYMPHATIC: Negative for bleed or purpura. MUSCULOSKELTAL: Negative for Myalgia or arthralgia. NEURLOGICAL: No LOC, Sz or syncope, blurred vision dizziness or abnormality.. Significant memory loss and dementia. BEHAVIORAL/PSYCH: Negative. ENDOCRINE: Negative. Physical examination General Appearance: Alert, cooperative, no distress, appears stated age. Morbidly obese in ICU bed and appears to be comfortable. Neck HEENT: Supple, no lymphadenopathy, no thyroid enlargement, no carotid bruits. Lungs: Decreased breath sound bilaterally with fine rhonchi no crackles or wheezes. Chest Wall: Decrease expansion with deep inspiration no tenderness and no deformity was found on exam, no costochondral pain or discomfort. Heart: Irregular Rhythm and rate and rhythm, S1, S2 positive S3 with systolic murmur in the apex Back: Symmetric, no curvature, ROM normal, no CVA tenderness. Abdomen: Soft, non-tender, bowel sounds active all four quadrants, no masses, no organomegaly. Extremities: Dressing in place to the left groin. 1+ edema bilaterally. Pulses palpable bilaterally, warm to the touch. Pulses: Decrease in the left compared to the right. Skin: Skin color, texture, tugor normal, no rashes or lesions. Neurologic: Alert oriented significant confusion cranial nerves II 12 intact positive severe advanced dementia able to move all her 4 extremity with severe abnormal balance and gait. - Labs CBC & Chem 7: 07/28/19 05:20 07/28/19 05:20 Labs: Abnormal Lab Results - Last 24 Hours (Table) 07/27/19 07/27/19 07/27/19 Range/Units 11:54 16:27 20:30 RBC (3.80-5.40) m/uL Hgb (11.4-16.0) gm/dL Hct (34.0-46.0) % Sodium (137-145) mmol/L Potassium (3.5-5.1) mmol/L Carbon Dioxide (22-30) mmol/L BUN (7-17) mg/dL Glucose (74-99) mg/dL POC Glucose (mg/dL) 143 H 124 H 152 H (75-99) mg/dL Calcium (8.4-10.2) mg/dL 07/28/19 07/28/19 07/28/19 Range/Units 05:20 05:20 06:50 RBC 3.26 L (3.80-5.40) m/uL Hgb 9.7 L D (11.4-16.0) gm/dL Hct 29.7 L (34.0-46.0) % Sodium 136 L (137-145) mmol/L Potassium 3.3 L (3.5-5.1) mmol/L Carbon Dioxide 32 H (22-30) mmol/L BUN 18 H (7-17) mg/dL Glucose 118 H (74-99) mg/dL POC Glucose (mg/dL) 120 H (75-99) mg/dL Calcium 7.8 L (8.4-10.2) mg/dL Microbiology - Last 24 Hours (Table) 07/25/19 12:45 Blood Culture - Preliminary Blood No Growth after 48 hours Assessment and Plan Plan: 1. Acute thrombus event in the left popliteal and femoral artery, status post embolectomy. Continue eliquis. 2. Acute hypoxic respiratory failure with vent require postsurgical complication with hypoxia. Patient has been successfully extubated. 3. Pulseless leg and the left side secondary to acute thrombus event at a clear whether this is caused by the A. fib or had any significant CAD component. 4. Chronic atrial fibrillation with episode of A. fib and RVR. Increase Lopressor to 75 mg twice daily, and digoxin 250 g 1 followed by 125 g daily and continue eliquis. 5. COPD: Has been on oxygen and updraft treatment [id number] continue medication. Continue DuoNeb treatments 4 times daily. 6. Acute on chronic systolic heart failure. Patient is currently on oral Lasix 40 mg twice daily. Continue Lopressor. 7. Advanced Alzheimer's dementia. Continue Abilify 7 mg daily. 8. Hyperglycemia without diagnosis of diabetes. Continue Accu-Chek with sliding scales coverage. 9. Hypothyroidism. Continue levothyroxine at 125 g daily. 10. GI prophylaxis: Patient will be on pantoprazole. 11 DVT prophylaxis. Transitioned to eliquis CODE STATUS: Full code. Discharge plan: Return to [facility] on Saturday Impression and plan of care have been directed as dictated by the signing physician. Rosa Elena Damon nurse practitioner acting as scribe for signing physician.
[2019-07-28 12:20] LABS: Glucose,Whole Blood 100 mg/dL (75-99)
[2019-07-28 16:38] LABS: Glucose,Whole Blood 82 mg/dL (75-99)
[2019-07-28] MEDS: LACTATED RINGERS 1,000 ML IV SCH (20:19)
[2019-07-28 20:23] LABS: Glucose,Whole Blood 135 mg/dL (75-99)
[2019-07-29 04:39] LABS: HCT 29.7 % (34.0-46.0); HGB 9.6 gm/dL (11.4-16.0); MCH 29.5 pg (25.0-35.0); MCHC 32.1 g/dL (31.0-37.0); MCV 91.8 fL (80.0-100.0); Mean Platelet Volume 9.9; Platelet Count 171 k/uL (150-450); RBC 3.24 m/uL (3.80-5.40); RDW 13.7 % (11.5-15.5); WBC 7.6 k/uL (3.8-10.6)
[2019-07-29 04:55] LABS: Potassium 3.8 mmol/L (3.5-5.1)
[2019-07-29] MEDS: NOREPINEPHRINE 4 MG in SODIUM CHLORIDE 0.9% 250 ML IV SCH (06:06)
[2019-07-29 06:46] LABS: Glucose,Whole Blood 149 mg/dL (75-99)
[2019-07-29] MEDS: INSULIN ASPART (NovoLOG) 100 UNIT/ML VIAL SQ SCH (07:13)
--- NOTE | 2019-07-29 08:06 | XR ---
EXAMINATION TYPE: XR chest 1V portable DATE OF EXAM: 07/29/2019 Comparison: 07/28/2019 Clinical History: 84-year-old female Tube placement Findings: No ET tube visualized. Heart mildly enlarged. Diffuse interstitial and patchy airspace opacities pers ist without significant change in the interval. No sizable effusion. Partially visualized posterior l umbar fusion hardware. Old healed left-sided rib fracture deformity. Impression: 1. Similar mild cord abutment. 2. Continued diffuse interstitial and patchy airspace infiltrates.
[2019-07-29] MEDS: IPRATROPIUM-ALBUTEROL 3 ML NEB INHALATION SCH ×2 (08:34→11:42)
[2019-07-29] MEDS ORDERED: DIGOXIN 125 MCG TAB PO SCH (09:00)
[2019-07-29] MEDS: DILTIAZEM 125 MG in SODIUM CHLORIDE 0.9% 100 ML IV SCH (09:20)
[2019-07-29] MEDS: METOPROLOL TARTRATE 25 MG TAB PO SCH (09:28)
[2019-07-29] MEDS: LACTOBACILLUS ACIDOPH & BULGAR 1 EACH PACKET PO SCH (09:28)
[2019-07-29] MEDS: PANTOPRAZOLE 40 MG TABLET PO SCH (09:28)
[2019-07-29] MEDS: APIXABAN 5 MG TAB PO SCH (09:29)
[2019-07-29] MEDS: FUROSEMIDE 40 MG TAB PO SCH (09:29)
[2019-07-29] MEDS: POTASSIUM CHLORIDE ER 10 MEQ TAB.ER.PRT PO SCH (09:29)
[2019-07-29] MEDS: LORATADINE 10 MG TAB PO SCH (09:29)
[2019-07-29] MEDS: CALCIUM CARBONATE 500 MG CHEWABLE PO SCH (09:31)
--- NOTE | 2019-07-29 09:48 | P.PN ---
Subjective Progress Note Date: 07/29/19 Principal diagnosis: Post embolectomy of the left common external iliac as well as left common femoral profundus femoris and superficial femoral arterial segments This is an 84-year-old female, presented to the ER yesterday with sudden onset of left lower extremity pain and discoloration. Physical examination revealed absent femoral popliteal and pedal pulses on the left side. Decreased motor and sensory function was noted in the left leg, and there was some mottling of the foot. Calf was also affected. Patient had CT angiogram which showed occlusion of the left common and external iliac segments as well as the left common profundus and superficial femoral arterial segments. Patient was also in atrial fibrillation not on anticoagulation therapy and this was felt to be embolic event. Patient was seen by vascular surgery on consultation, underwent embolectomy of the left common 6 external iliac as well as the left common femoral, profundus femoris, and superficial femoral arterial segments. Postoperatively patient was on mechanical ventilation, and I was asked to see her on consultation. I saw the patient this morning, still on mechanical ventilation, patient was on propofol at 10 mcg/kg/m, discontinued her propofol, place the patient for about an hour on pressure support of 8 and CPAP, she was moving over 370 mL and tidal volume, and her respiratory rate was about 26. Patient seems to be comfortable, hence recommended extubating the patient to a nasal cannula. On 07/27/2019 patient seen in follow-up in the intensive care unit. She is awake and alert, resting in bed, in no acute distress, currently on 4 L of oxygen with a pulse ox of 97%, she is hemodynamically stable, she remains on a small amount of Levofed at 2 mics per minute, which can turned off, as a current blood pressure is 137/68, slightly tachycardic, with a rate of 107 BPM, patient is afebrile, she remains on lactated Ringer's rate of 20 ML per hour, heparin drip at weight-based protocol. This is postoperative day 2, status post embolectomy of the left common external iliac as well as left common femoral profundus femoris and superficial femoral arterial segments. Lung sounds are positive for scattered rhonchi, patient does have a effective cough, she will need incentive spirometry. Today's labs have been reviewed with blood cell count is 8.8, hemoglobin is 12.0, electrolytes were within normal limits, BUN of 18 creatinine is 1.0. Left leg is warm to touch, no complaints of numbness or tingling no pain. On 07/28/2019 patient seen in follow-up in the intensive care units. She is awake and alert, she is only oriented to person, she knew she was in [place], but did not know she was in the hospital, disoriented to month and the year, but not the president. Denies any acute distress, denies any pain, no shortness of breath, patient has been in and out of A. fib RVR, requiring a Cardizem infusion, it is currently on hold. Patient remains in A. fib, with a rate of 80-90 BPM. He is on oral anticoagulation in the form of Eliquis, heparin drip has been discontinued, there was some mild amount of oozing from the left groin incision site, which is currently controlled, left groin is clean dry and intact, covered with a dressing. Bilateral pedal pulses are palpable, both feet are warm, no complaints of numbness or paresthesias. Levofed has been on hold, patient was given a liter bolus last night, hemodynamically stable. Today's labs have been reviewed, showing white blood cell, 7.8, hemoglobin of 9.7, sodium of 136, potassium 3.3, chloride is 101, CO2 32, B1 is 18, creatinine is 1.04, today's chest x-ray has been reviewed showing alveolar and interstitial edema in both lungs, low lung volumes, and stable small to tiny bilateral pleural effusions, patient remains on oral dose of Lasix at 40 mg every 12 hours. O2 saturation is 98% on 3 L. No complaints of shortness of breath, lung sounds reveal diminished breath sounds at the bases, with mild crackles. On 07/29/2019 patient seen in follow-up in the intensive care unit, she is a wake and alert, in no acute distress, she is at her baseline mentation, confused, but she is able to make her needs known. Room air pulse ox is 98%, hemodynamically patient is stable, she denies any shortness of breath, lung sounds are positive for a few bibasilar crackles, she remains on oral Lasix of 40 mg twice daily, she is in -1425 mL fluid balance over the last 24 hours, today's chest x-ray has been reviewed with Dr. Le, showing continued for diffuse interstitial and patchy airspace infiltrates. Today's labs have been reviewed showing white blood cell count of 7.6, hemoglobin is 9.6, sodium is 136, potassium 3.8, CO2 34, B1 is 22, and creatinine is 1.21. Slightly worsened renal profile, patient is tolerating oral intake, no nausea vomiting no diarrhea, lactated Ringer's at a rate of 20 ML per hour, no other drugs, patient has been switched over to oral anticoagulation for history of atrial fibrillation. Her A. fib was controlled, no acute issues overnight, left groin incisions clean dry and intact, pedal pulses are 1+ and palpable, extremities are warm to touch, with no complaints of numbness or tingling. Objective - Vital Signs Vital signs: Vital Signs Temp 97.8 F 07/29/19 04:00 Pulse 106 H 07/29/19 08:46 Resp 42 H 07/29/19 07:00 BP 109/60 07/29/19 07:00 Pulse Ox 98 07/29/19 07:00 Intake & Output 07/28/19 07/29/19 07/29/19 18:59 06:59 18:59 Intake Total 480 530 20 Output Total 890 1545 100 Balance -410 -1015 -80 Weight 110.2 kg Intake: IV 360 290 20 KVO 120 50 Lactated Ringers 1,000 ml 240 240 20 @ 20 mls/hr IV .Q24H [facility] Rx#:[id number] Oral 120 240 Output: Urine 890 1545 100 Other: Voiding Method Indwelling Catheter Indwelling Catheter ABP, PAP, CO, CI - Last Documented Arterial Blood Pressure 118/58 - Exam GENERAL EXAM: Alert, pleasant, 84-year-old white female, on room air with pulse ox of 98%, resting comfortably in bed in the intensive care unit. EYES: Normal reaction of pupils, equal size. Conjunctiva pink, sclera white. NOSE: Clear with pink turbinates. THROAT: No erythema or exudates. NECK: No masses, no JVD, no thyroid enlargement, no adenopathy. CHEST: No chest wall deformity. Symmetrical expansion. LUNGS: Equal air entry with bibasilar crackles CVS: Irregular rate and rhythm, normal S1 and S2, no gallops, no murmurs, no rubs ABDOMEN: Soft, obese, nontender. No hepatosplenomegaly, normal bowel sounds, no guarding or rigidity. EXTREMITIES: No clubbing, no edema, no cyanosis, and upper and lower extremities. Right and left lower extremity pedal pulses are 1+, skin is warm to touch, and no numbness or tingling MUSCULOSKELETAL: Muscle strength and tone normal. SPINE: No scoliosis or deformity SKIN: No rashes, left groin incision is clean dry and intact, covered with dressing CENTRAL NERVOUS SYSTEM: Alert and oriented -2. No focal deficits, tone is normal in all 4 extremities. PSYCHIATRIC: Alert and oriented -1. Appropriate affect. Intact judgment and insight. - Labs CBC & Chem 7: 07/29/19 04:05 07/29/19 04:05 Labs: Abnormal Lab Results - Last 24 Hours (Table) 07/28/19 07/28/19 07/29/19 Range/Units 12:18 20:18 04:05 RBC 3.24 L (3.80-5.40) m/uL Hgb 9.6 L (11.4-16.0) gm/dL Hct 29.7 L (34.0-46.0) % Sodium (137-145) mmol/L Carbon Dioxide (22-30) mmol/L BUN (7-17) mg/dL Creatinine (0.52-1.04) mg/dL Glucose (74-99) mg/dL POC Glucose (mg/dL) 100 H 135 H (75-99) mg/dL Calcium (8.4-10.2) mg/dL 07/29/19 07/29/19 Range/Units 04:05 06:45 RBC (3.80-5.40) m/uL Hgb (11.4-16.0) gm/dL Hct (34.0-46.0) % Sodium 136 L (137-145) mmol/L Carbon Dioxide 34 H (22-30) mmol/L BUN 22 H (7-17) mg/dL Creatinine 1.21 H (0.52-1.04) mg/dL Glucose 119 H (74-99) mg/dL POC Glucose (mg/dL) 149 H (75-99) mg/dL Calcium 8.0 L (8.4-10.2) mg/dL Microbiology - Last 24 Hours (Table) 07/25/19 12:45 Blood Culture - Preliminary Blood No Growth after 72 hours Assessment and Plan Plan: Assessment: Acute thrombosis of the left iliac system and other segments requiring embolectomy, postoperative day #4 Failure to wean post surgery requiring reintubation and ventilatory support, expected in 84-year-old with dementia and underlying acute on chronic systolic congestive heart failure, also secondary to history of underlying COPD. Patient was successfully extubated on 07/26/2019 Postoperative hypoxic respiratory failure secondary to above, mostly acute on chronic systolic congestive heart failure. Required reintubation. This is again expected considering the patient's clinical condition. Improving with diuresis History of underlying COPD, patient is normally on oxygen at home and nebulizer treatment. Presently inactive. History of advanced dementia mostly Alzheimer's type. History of hypothyroidism Chronic A. fib, currently on oral anticoagulation in the form of Eliquis Acute kidney injury likely related to ATN, Plan: Hemodynamically patient remains stable, patient is on room air, denies any specific complaints, no shortness of breath, today's chest x-ray still showing interstitial edema, patient continues on oral Lasix 40 mg twice daily, we will drop the dose down to once daily in view of slightly worsened renal function. No other issues overnight, A. fib rate is controlled, cardiology is on the case. Pedal pulses are palpable, extremities are warm to touch, no complaints of pain or numbness in lower extremities. Patient has been an overflow for selective care bed for last 2 days, from pulmonary perspective patient can be considered for discharge to ECF today I performed a history & physical examination of the patient and discussed their management with my nurse practitioner, Wanda Lopez. I reviewed the nurse practitioner's note and agree with the documented findings and plan of care. Lung sounds are positive for diminished breath sounds with scattered rhonchi. The findings and the impression was discussed with the patient. I attest to the documentation by the nurse practitioner. Time with Patient: Less than 30
[2019-07-29] MEDS: KETOTIFEN 0.025% OPHTH DROPS 5 ML BTL BOTH EYES SCH (10:50)
[2019-07-29] MEDS: ARIPiprazole 2 MG TAB PO SCH (10:51)
[2019-07-29] MEDS: ARIPiprazole 5 MG TAB PO SCH (10:52)
[2019-07-29] MEDS: LEVOTHYROXINE 125 MCG TAB PO SCH (10:52)
--- NOTE | 2019-07-29 10:55 | P.DS ---
Providers Date of admission: 07/25/19 14:32 Expected date of discharge: 07/29/19 Attending physician: Miky Arellano Consults: 07/25/19 14:31 Consult Physician Stat Consulting Provider: Unruly Sofia Consult Reason/Comments: Left iliac artery occlusion Do you want consulting provider notified?: Already Contacted 07/25/19 17:39 Consult Physician Routine Consulting Provider: Jayesh Del Valle Reason/Comments: icu management Do you want consulting provider notified?: Yes Primary care physician: [facility] Course: 84-year-old female one of my patient in [facility] for the last 5 years with past medical history of mild CHF systolic dysfunction, recurrent UTI, COPD, advanced dementia, and hypothyroidism who was seen this last week for Route monthly around was doing well she developed to have an acute pain and discomfort in the left leg for few hours earlier and a blood to have cold foot and leg was suspected to be arterial thrombus patient was sent to [facility] was tested and seen by vascular and agree that she had iliac and femoral occlusion as a thrombus in the left side patient be taken to the OR by vascular for thrombectomy in the meanwhile she is doing slightly but better found to have A. fib with RVR nonsustained never been diagnosed and treated for the past she is not a good candidate for an anticoagulation as a long-term. Patient will be hospitalized after procedure for the above problem. 07/25: Patient had her thrombectomy yesterday with vascular was off the vent for sure. Of time and have to be reintubated back on the ventilator management, patient is on a small dose of vasopressor currently and been sedated her thrombectomy site looks good to the leg is warmer than the right side today. Hemodynamically stable but her comorbidity for all dextro medical problem is much higher than normal. 07/26: Patient remains in the intensive care unit. She has been successfully extubated. Chest x-ray this morning reveals mild residual interstitial density remains. Additional patchy left basilar and retrocardiac atelectasis consolidation also remains. Echocardiogram reveals EF 60-65% with mild aortic valve sclerosis, mild mitral regurgitation, moderate to severe tricuspid regurgitation, mild pulmonary hypertension. Patient is currently on heparin drip and has been cleared by vascular surgeon to start oral anticoagulation. Patient was restarted on eliquis 5 mg twice daily. Nursing states that she removed the dressing this morning and there was a large blood clot and will monitor closely for any active bleeding. Currently no active bleeding. Patient has warmth and good pulses to both lower extremities. Harmon catheter is in place. Patient has been afebrile, heart rate 99, blood pressure 103/47, pulse ox 93% on 3 L nasal cannula. Repeat lab work reveals essentially normal CBC, electrolytes normal, BUN 18 creatinine 1.07. Blood sugars have been running between 104 126. AST 101, bilirubin 0.8, ALT 27, alkaline phosphatase 95. Albumin 2.9. Blood culture showing no growth at 24 hours. Discharge plan will be for patient to return to [facility] at the time of discharge. 07/27: Patient remains in intensive care unit. Patient developed A. fib with RVR and was started on Cardizem drip and also Lopressor was increased to 75 mg twice daily. Patient was then hypotensive and started on levo fed. Cardiology was contacted last evening for orders but were not on consult. Patient has subsequently been weaned off Cardizem drip and and levo fed. Discussed case with Dr. Muniz and we have also added and digoxin 250 g once followed by 125 g daily. Dressing was changed this morning and there was only a small amount of blood on the dressing. No active bleeding. Patient is doing well with eliquis. Vascular surgery has cleared the patient for discharge for tomorrow. Patient will be returning to [facility]. Plan is to monitor heart rate overnight and plan for discharge to [facility] tomorrow. Patient is afebrile, heart rate 89, blood pressure 97/43, pulse ox 98% on room air. Repeat blood work reveals WBC 7.8, hemoglobin 9.7, platelet count 153. Sodium 136, potassium 3.3, chloride 101, C O2 32, BUN 18 and creatinine 1.04. Blood sugars running between 118 and 152. TSH 1.330. Potassium has been replaced. 07/28: Patient remains in the intensive care unit. Afebrile, heart rate 94, blo od pressure 101/40, pulse ox 97% on room air. Repeat lab work reveals WBC 7.6, hemoglobin 9.6, platelet count 171. Sodium 136, potassium 3.8, chloride 99, CO2 34, BUN 22 and creatinine 1.21. Blood sugars running between 119 149. Blood cultures no growth at 72 hours. Chest x-ray this morning reveals similar mild cord abutment. Diffuse interstitial patchy airspace infiltrates. cardiac monitor technician has been A. fib rate controlled. Patient is had no repeat episodes of RVR. Patient has been cleared for discharge by vascular surgery. We will have arterial line and Harmon cath removed prior to discharge. Patient will be discharged back to [facility] today in stable condition. Discharge diagnoses: 1. Acute thrombus in the left popliteal and femoral artery, status post e mbolectomy. 2. Acute hypoxic respiratory failure with vent require postsurgical complication with hypoxia. 3. Pulseless leg and the left side secondary to acute thrombus event possibly caused by the A. fib 4. Chronic atrial fibrillation with episode of A. fib and RVR. 5. COPD exacerbation. 6. Acute on chronic systolic heart failure. 7. Advanced Alzheimer's dementia. 8. Hyperglycemia without diagnosis of diabetes. 9. Hypothyroidism. Discharge plan: Return to [facility] on Saturday Impression and plan of care have been directed as dictated by the signing physician. Rosa Elena Damon nurse practitioner acting as scribe for signing physician. Patient Condition at Discharge: Good Plan - Discharge Summary Discharge Rx Participant: Yes New Discharge Prescriptions: New Apixaban [Eliquis] 5 mg PO BID tab Digoxin [Lanoxin] 125 mcg PO DAILY tab Metoprolol Tartrate [Lopressor] 75 mg PO BID@0800,1700 tab Pantoprazole [Protonix] 40 mg PO DAILY tablet.dr Continue Acetaminophen Tab [Tylenol] 500 mg PO BID PRN PRN Reason: Pain Na Phos,M-B/Na Phos,Di-Ba [Fleet Adult] 133 ml RECTAL DAILY PRN PRN Reason: Constipation Magnesium Hydroxide [Milk of Magnesia Concentrate] 7,200 mg PO Q48H PRN PRN Reason: Constipation Bisacodyl [Dulcolax] 10 mg RECTAL DAILY PRN PRN Reason: Constipation Olopatadine HCl [Patanol] 1 drop BOTH EYES BID@0800,1700 Artificial Tears-Hypromellose [Artificial Tear Drops] 1 drop BOTH EYES TID@ 0800,1200,1700 Oyster Shell Calcium 500mg 500 mg PO DAILY@0800 Furosemide [Lasix] 40 mg PO BID@0800,1700 Potassium Chloride 10 meq PO DAILY@0800 Loratadine 10 mg PO DAILY@0800 Levothyroxine Sodium 125 mcg PO DAILY@0800 L.acidoph,Paracasei, B.lactis [Probiotic] 1 cap PO DAILY@0800 Ergocalciferol (Vitamin D2) [Drisdol] 50,000 unit PO Q14D ARIPiprazole [Abilify] 5 mg PO DAILY@0800 ARIPiprazole [Abilify] 2 mg PO DAILY@0800 Discontinued Metoprolol Tartrate [Lopressor] 50 mg PO BID@0800,1700 Discharge Medication List ARIPiprazole [Abilify] 2 mg PO DAILY@0800 07/25/19 [History] ARIPiprazole [Abilify] 5 mg PO DAILY@0800 07/25/19 [History] Acetaminophen Tab [Tylenol] 500 mg PO BID PRN 07/25/19 [History] Artificial Tears-Hypromellose [Artificial Tear Drops] 1 drop BOTH EYES TID@0800,1200,1700 07/25/19 [History] Bisacodyl [Dulcolax] 10 mg RECTAL DAILY PRN 07/25/19 [History] Ergocalciferol (Vitamin D2) [Drisdol] 50,000 unit PO Q14D 07/25/19 [History] Furosemide [Lasix] 40 mg PO BID@0800,1700 07/25/19 [History] L.acidoph,Paracasei, B.lactis [Probiotic] 1 cap PO DAILY@0800 07/25/19 [History] Levothyroxine Sodium 125 mcg PO DAILY@0800 07/25/19 [History] Loratadine 10 mg PO DAILY@0800 07/25/19 [History] Magnesium Hydroxide [Milk of Magnesia Concentrate] 7,200 mg PO Q48H PRN 07/25/19 [History] Na Phos,M-B/Na Phos,Di-Ba [Fleet Adult] 133 ml RECTAL DAILY PRN 07/25/19 [History] Olopatadine HCl [Patanol] 1 drop BOTH EYES BID@0800,1700 07/25/19 [History] Oyster Shell Calcium 500mg 500 mg PO DAILY@0800 07/25/19 [History] Potassium Chloride 10 meq PO DAILY@0800 07/25/19 [History] Apixaban [Eliquis] 5 mg PO BID tab 07/29/19 [Rx] Digoxin [Lanoxin] 125 mcg PO DAILY tab 07/29/19 [Rx] Metoprolol Tartrate [Lopressor] 75 mg PO BID@0800,1700 tab 07/29/19 [Rx] Pantoprazole [Protonix] 40 mg PO DAILY tablet. 07/29/19 [Rx] Follow up Appointment(s)/Referral(s): Miky Arellano MD [Primary Care Provider] - 1 Week (at [facility]) Discharge Disposition: TRANSFER TO SNF/F
--- NOTE | 2019-07-29 10:58 | CDI ---
Documentation Clarification Form Date: 07/29/2019 10:48:26 AM From: Rebeca PriestFinnGINNY, CCDS Admit Date: 07/25/2019 02:32:00 PM Patient Name: Arlene Guadarrama Visit Number: [id number] Discharge Date: ATTENTION: The Clinical Documentation Specialists (CDI) and [facility] Coding Staff appreciate your assistance in clarifying documentation. Please respond to the clarification below the line at the bottom and electronically sign. The CDI & [facility] Coding staff will review the response and follow-up if needed. Please note: Queries are made part of the Legal Health Record. If you have any questions, please contact the author of this message via ITS. Dr. Miky Arellano: Per the 07/27 Attending Progress Note: "Potassium has been replaced" without further specificity. History/Risk Factors: Arteriosclerosis of the lower extremities, Chronic persistent atrial fibrillation, Chronic systolic heart failure, Pulmonary Hypertension, Alzheimer's Dementia. Clinical indicators: Per the 07/24 History & Physical, the patient presented with the following: "Acute thrombus event in the left popliteal and femoral artery: Patient (will) be going for thrombectomy with vascular, will be admitted to the hospital afterward remain on anticoagulation and might require and antiplatelet agent as well. Pulseless leg and the left side secondary to acute thrombus event ( ) clear whether this is caused by the A. fib or had any significant CAD component. A. fib with RVR." Abnormal Lab Value 07/27: K 3.3* K levels: 07/24: 4.6, 07/25: 3.6, 07/26: 4.0, 07/27: 3.3*, 07/28 3.8 Treatment 07/25: IV Kcl 10 meq in IV solution. 07/27: KCL 20 meq PO q 1 hr. Clinical significance of diagnostic testing and treatment CANNOT be assumed or coded without physician documentation of significance if any. Please clarify what abnormal laboratory signifies: Abnormal Lab Value, please specifiy: Hyper/Hypokalemia Unable to determine Other, please specify (Last Revision: February 2017) MTDD
[2019-07-29 11:19] VITALS: RESP 18; TEMP 98.6
--- NOTE | 2019-07-29 11:25 | P.PN ---
Subjective Progress Note Date: 07/29/19 Patient seen and examined in the ICU with Dr. Harmon. Patient sitting up, tolerating diet. There were no acute changes through the night. Patient denies any pain in lower extremities. Objective - Vital Signs Vital signs: Vital Signs Temp 98.6 F 07/29/19 08:00 Pulse 93 07/29/19 11:00 Resp 18 07/29/19 11:00 BP 105/74 07/29/19 11:00 Pulse Ox 100 07/29/19 11:00 Intake & Output 07/28/19 07/29/19 07/29/19 18:59 06:59 18:59 Intake Total 480 530 20 Output Total 890 1545 100 Balance -410 -1015 -80 Weight 110.2 kg Intake: IV 360 290 20 KVO 120 50 Lactated Ringers 1,000 ml 240 240 20 @ 20 mls/hr IV .Q24H [facility] Rx#:[id number] Oral 120 240 Output: Urine 890 1545 100 Other: Voiding Method Indwelling Catheter Indwelling Catheter ABP, PAP, CO, CI - Last Documented Arterial Blood Pressure 113/53 - Exam General appearance: The patient is alert, oriented, in no acute distress. HET: Head is normocephalic and atraumatic. Neck: Supple without lymphadenopathy. Trachea midline. Heart: S1 S2. Regular rate and rhythm. Lungs: No crackles or wheezes are heard. Abdomen: Soft, nontender, nondistended with bowel sounds. Groin: Left groin with dressing CDI. Incision well approximated with kelvin, no active bleeding. No signs of hematoma. Extremities: Normal skin color and turgor. Edema bilaterally. Warm to touch, good capillary refill. Left lower extremity with positive PT and DP Doppler signal. Patient was able to move the left lower extremity and foot, sensory and motor intact. - Labs CBC & Chem 7: 07/29/19 04:05 07/29/19 04:05 Labs: Abnormal Lab Results - Last 24 Hours (Table) 07/28/19 07/28/19 07/29/19 Range/Units 12:18 20:18 04:05 RBC 3.24 L (3.80-5.40) m/uL Hgb 9.6 L (11.4-16.0) gm/dL Hct 29.7 L (34.0-46.0) % Sodium (137-145) mmol/L Carbon Dioxide (22-30) mmol/L BUN (7-17) mg/dL Creatinine (0.52-1.04) mg/dL Glucose (74-99) mg/dL POC Glucose (mg/dL) 100 H 135 H (75-99) mg/dL Calcium (8.4-10.2) mg/dL 07/29/19 07/29/19 Range/Units 04:05 06:45 RBC (3.80-5.40) m/uL Hgb (11.4-16.0) gm/dL Hct (34.0-46.0) % Sodium 136 L (137-145) mmol/L Carbon Dioxide 34 H (22-30) mmol/L BUN 22 H (7-17) mg/dL Creatinine 1.21 H (0.52-1.04) mg/dL Glucose 119 H (74-99) mg/dL POC Glucose (mg/dL) 149 H (75-99) mg/dL Calcium 8.0 L (8.4-10.2) mg/dL Microbiology - Last 24 Hours (Table) 07/25/19 12:45 Blood Culture - Preliminary Blood No Growth after 72 hours Assessment and Plan Assessment: #1 status post left ileal amoral/popliteal embolectomy with orthodox of adequate arterial perfusion left lower extremity. #2 Chronic atrial fibrillation Plan: Recommend continuing Eliquis. Patient may be discharged from vascular surgery standpoint. Patient is to follow-up with Dr. Ordoñez in the office in 2 weeks. No tub baths. No strenuous activity or heavy lifting. The above dictated assessment and findings were discussed with Dr. Harmon. The impression and plan of care have been directed as dictated.
[2019-07-29 11:53] VITALS: PULSE 106
[2019-07-29 13:34] VITALS: BP 119/79
[2019-07-30] MEDS ORDERED: FUROSEMIDE 40 MG TAB PO SCH (09:00)
[2019-07-30] MEDS ORDERED: ERGOCALCIFEROL 50,000 UNIT CAP PO SCH (12:00)
== END 2019-07-29 14:58 | DRG 270 ==
LOC: EC 12:01 → 3SCARD 14:32 → 2SICU 18:17
PROVIDERS: ADMIT Internal Medicine Geriatric Medicine; ATTEND Internal Medicine Geriatric Medicine
DX: I74.5 Embolism and thrombosis of iliac artery (principal); I50.23 Acute on chronic systolic (congestive) heart failure; J95.821 Acute postprocedural respiratory failure; N17.0 Acute kidney failure with tubular necrosis; I82.432 Acute embolism and thrombosis of left popliteal vein; I74.3 Embolism and thrombosis of arteries of the lower extremities; J44.1 Chronic obstructive pulmonary disease with (acute) exacerbation; I48.19 Other persistent atrial fibrillation; J98.11 Atelectasis; Z99.11 Dependence on respirator [ventilator] status; E03.9 Hypothyroidism, unspecified; R73.9 Hyperglycemia, unspecified; E86.0 Dehydration; F02.80 Dementia in other diseases classified elsewhere, unspecified severity, without behavioral disturbance, psychotic disturbance, mood disturbance, and anxiety; F20.9 Schizophrenia, unspecified; G30.9 Alzheimer's disease, unspecified; I11.0 Hypertensive heart disease with heart failure; I27.20 Pulmonary hypertension, unspecified; I08.3 Combined rheumatic disorders of mitral, aortic and tricuspid valves; Z79.890 Hormone replacement therapy; Z79.899 Other long term (current) drug therapy; Z87.440 Personal history of urinary (tract) infections; Z96.641 Presence of right artificial hip joint; Z99.81 Dependence on supplemental oxygen; I95.9 Hypotension, unspecified; Z86.14 Personal history of Methicillin resistant Staphylococcus aureus infection; Z88.1 Allergy status to other antibiotic agents; E87.6 Hypokalemia
CPT/HCPCS: 36415; 71045; 80048; 80053; 82805; 83036; 83605; 83735; 83880; 84443; 85025; 85027; 85610; 85730; 86850; 86870; 86880; 86900; 86901; 87040; 88304; 93005; 93306; 94002; 94003; 94640; 96361; 96374; 99291

== ENCOUNTER 2021-05-15 18:23 | Inpatient (IN) | payer MEDICARE, OTHER ==
[2021-05-15] MEDS ORDERED: SODIUM CHLORIDE 0.9% 1,000 ML IV STA (18:34)
[2021-05-15 19:09] LABS: Basophils % (A) 1 %; Eosinophils # (A) 0.1 k/uL (0-0.7); Eosinophils % (A) 1 %; HCT 44.1 % (34.0-46.0); HGB 14.1 gm/dL (11.4-16.0); Lymphocytes # (A) 1.5 k/uL (1.0-4.8); Lymphocytes % (A) 26 %; MCH 31.4 pg (25.0-35.0); MCV 98.2 fL (80.0-100.0); Mean Platelet Volume 10.9; Monocytes # (A) 0.3 k/uL (0-1.0); Monocytes % (A) 5 %; Neutrophils # (A) 3.7 k/uL (1.3-7.7); Neutrophils % (A) 64 %; Platelet Count 183 k/uL (150-450); RBC 4.49 m/uL (3.80-5.40); WBC 5.8 k/uL (3.8-10.6)
[2021-05-15 19:10] LABS: Appearance,Urine Clear (Clear); Bilirubin,Urine 2+ (Negative); Blood,Urine Negative (Negative); Color,Urine Dark Yellow; Glucose,Urine (UA) 1+ (Negative); Ketones,Urine Negative (Negative); Leukocyte Esterase,Urine Negative (Negative); Nitrite,Urine Negative (Negative); PH, Urine 5.5 (5.0-8.0); Protein,Urine Negative (Negative); Specific Gravity,Urine 1.014 (1.001-1.035)
[2021-05-15 19:18] LABS: ALT 122 U/L (4-34); AST 160 U/L (14-36); African American GFR (CKD) >90 (>60 ml/min/1.73 sqM); Albumin 3.3 g/dL (3.5-5.0); Alkaline Phosphatase 609 U/L (38-126); Anion Gap 9 mmol/L; Blood Urea Nitrogen 15 mg/dL (7-17); Calcium 8.9 mg/dL (8.4-10.2); Carbon Dioxide 29 mmol/L (22-30); Chloride 99 mmol/L (98-107); Glucose 286 mg/dL (74-99); Lipase 14 U/L (23-300); Non-African American GFR(CKD) 81 (>60 ml/min/1.73 sqM); Sodium 137 mmol/L (137-145); Total Bilirubin 11.6 mg/dL (0.2-1.3); Total Protein 6.7 g/dL (6.3-8.2)
[2021-05-15 19:23] LABS: Partial Thromboplastin Time 23.2 sec (22.0-30.0); Prothrombin Time 10.5 sec (9.0-12.0)
[2021-05-15 19:37] LABS: Potassium 4.7 mmol/L (3.5-5.1)
--- NOTE | 2021-05-15 21:15 | CT ---
EXAMINATION TYPE: CT abdomen pelvis w con DATE OF EXAM: 05/15/2021 COMPARISON: None available HISTORY: Jaundice. Elevated liver enzymes. CT DLP: 1454.8 mGycm Automated exposure control for dose reduction was used. TECHNIQUE: Helical acquisition of images was performed from the lung bases through the pelvis. CONTRAST: Performed without Oral Contrast and with IV Contrast, patient injected with 100 mL of Isovue 300. FINDINGS: LUNG BASES: Small left greater than right bibasilar opacities. Suboptimally evaluated few to multiple left lower lobe nodules measuring up to 6 mm. LIVER/GB: No acute abnormality is appreciated. Cholecystectomy. Mild biliary ductal dilatation with c ommon bile duct diameter measuring up to 10 mm. PANCREAS: Nonspecific prominence of the pancreatic head. Mild pancreatic ductal dilatation. SPLEEN: No significant abnormality is seen. ADRENALS: No significant abnormality is seen. KIDNEYS: No acute abnormality is seen. 5 mm simple left renal cyst. FREE AIR: No free air is visualized. RETROPERITONEAL ADENOPATHY: None visualized REPRODUCTIVE ORGANS: No significant abnormality is seen URINARY BLADDER: No significant abnormality is seen. PELVIC ADENOPATHY: None visualized. OSSEOUS STRUCTURES: No acute abnormality is seen. Prior T12-L3 posterior instrumented fusion and L5 vertebroplasty seen. Generalized osteopenia. Right hip arthroplasty. BOWEL: Small hiatal hernia. No bowel obstruction or free fluid. OTHER: None IMPRESSION: CHOLECYSTECTOMY WITH MILD PERIODONTAL DILATATION, NONSPECIFIC AND MAY REPRESENT POST SURGICAL CHANGE. NONSPECIFIC MILD PROMINENCE OF THE PANCREATIC HEAD WITH SUBTLE MILD PANCREATIC DUCTAL DILATATION. NO OBVIOUS PANCREATIC LESIONS SEEN. HOWEVER, CONSIDER NONEMERGENT MRCP OR ERCP FOR OPTIMAL EVALUATION AN D EXCLUDE UNDERLYING LESION. INCOMPLETELY IMAGED LEFT LOWER LOBE NODULES. ALSO MILD BIBASILAR ATELECTASIS. SMALL HIATAL HERNIA. NO BOWEL OBSTRUCTION.
--- NOTE | 2021-05-15 21:44 | ED ---
General Adult HPI - General Chief complaint: Recheck/Abnormal Lab/Rx Stated complaint: jaundice Time Seen by Provider: 05/15/21 18:29 Source: patient, EMS Mode of arrival: EMS Limitations: altered mental status - History of Present Illness Initial comments: This 86-year-old female presents with a complaint of jaundice. This apparently started approximately 5+ days ago. She currently resides in the [facility]. Labs were drawn 5 days ago which showed elevation of her bilirubin. The patient currently has no complaints. She denies any nausea, vomiting, abdominal pain, diarrhea, fevers, chills, chest pain, or shortness of breath. The family is not currently present with her but they are contacted and additional history is obtained. They are amiable to her being hospitalized. No other complaints or modifying factors. - Related Data Home Medications Medication Instructions Recorded Confirmed ARIPiprazole [Abilify] 2 mg PO DAILY@0800 07/25/19 05/15/21 ARIPiprazole [Abilify] 5 mg PO DAILY@0800 07/25/19 05/15/21 Acetaminophen Tab [Tylenol] 500 mg PO BID PRN 07/25/19 05/15/21 Artificial Tears-Hypromellose 1 drop BOTH EYES TID@0800,1200,1700 07/25/19 05/15/21 [Artificial Tear Drops] Ergocalciferol (Vitamin D2) 50,000 unit PO Q14D@1700 07/25/19 05/15/21 [Drisdol (50,000 Iu)] Furosemide [Lasix] 40 mg PO BID@0800,1700 07/25/19 05/15/21 Levothyroxine Sodium 125 mcg PO DAILY@0800 07/25/19 05/15/21 Loratadine 10 mg PO DAILY@0800 07/25/19 05/15/21 Magnesium Hydroxide [Milk of 7,200 mg PO Q48H PRN 07/25/19 05/15/21 Magnesia Concentrate] Na Phos,M-B/Na Phos,Di-Ba [Fleet 133 ml RECTAL DAILY PRN 07/25/19 05/15/21 Adult] Olopatadine HCl [Patanol 0.1%] 1 drop BOTH EYES BID@0800,1700 07/25/19 05/15/21 Oyster Shell Calcium 500mg 500 mg PO DAILY@0800 07/25/19 05/15/21 Potassium Chloride [Potassium 10 meq PO DAILY@0800 07/25/19 05/15/21 Chloride ER] bisacodyL [Dulcolax] 10 mg RECTAL DAILY PRN 07/25/19 05/15/21 Apixaban [Eliquis] 5 mg PO BID@0800,1700 05/15/21 05/15/21 Digoxin [Lanoxin] 125 mcg PO DAILY@0600 05/15/21 05/15/21 Ensure Clear 237 ml PO TID@0800,1200,1700 05/15/21 05/15/21 Famotidine [Pepcid] 20 mg PO DAILY@0800 05/15/21 05/15/21 Ipratropium-Albuterol Nebulize 3 ml INHALATION RT-BID@0800,1700 05/15/21 05/15/21 [Duoneb 0.5 mg-3 mg/3 ml Soln] Ipratropium-Albuterol Nebulize 3 ml INHALATION RT-QID PRN 05/15/21 05/15/21 [Duoneb 0.5 mg-3 mg/3 ml Soln] Previous Rx's Medication Instructions Recorded Metoprolol Tartrate [Lopressor] 75 mg PO BID@0800,1700 tab 07/29/19 Allergies Allergy/AdvReac Type Severity Reaction Status Date / Time erythromycin base Allergy Unknown Verified 05/15/21 19:06 [From Erythrocin] levofloxacin [From Levaquin] Allergy Unknown Verified 05/15/21 19:06 Penicillins Allergy Unknown Verified 05/15/21 19:06 Review of Systems ROS Statement: Those systems with pertinent positive or pertinent negative responses have been documented in the HPI. ROS Other: All systems not noted in ROS Statement are negative. Past Medical History Past Medical History: Atrial Fibrillation, Coronary Artery Disease (CAD), Heart Failure, COPD, Dementia, Hyperlipidemia, Hypertension, Memory Impairment, Thyroid Disorder History of Any Multi-Drug Resistant Organisms: MRSA Date of last positivie culture/infection: 10/10/16 MDRO Source:: back Past Surgical History: Joint Replacement Additional Past Surgical History / Comment(s): R hip Past Anesthesia/Blood Transfusion Reactions: No Reported Reaction Past Psychological History: Bipolar, Schizophrenia Smoking Status: Never smoker Past Alcohol Use History: None Reported Past Drug Use History: None Reported General Exam - General Exam Comments Initial Comments: GENERAL: The patient is well nourished and well hydrated. VITAL SIGNS: Heart rate, blood pressure, respiratory rate reviewed as recorded in nurse's notes. EYES: Pupils are round and reactive. Extraocular movements are intact. No conjunctival / lid redness or swelling. Icterus is noted. ENT: No external evidence of injury, swelling, or ecchymosis. Airway is patent. Throat is clear. NECK: Nontender. No swelling or evidence of injury. No subcutaneous emphysema. Trachea is midline. No thyroid mass. HEART: Regular rate and rhythm. Good peripheral pulses. LUNGS/CHEST: Breath sounds clear and equal bilaterally. No rales, rhonchi, or wheezes. No ecchymosis, subcutaneous emphysema, or tenderness. ABDOMEN: Abdomen soft without tenderness. No palpable masses or organomegaly. No peritoneal signs. No abdominal wall swelling or ecchymosis. EXTREMITIES: No extremity tenderness. Normal muscle tone and function. No thoracolumbar tenderness. NEUROLOGIC: Sensation is grossly intact. Cranial nerve exam reveals face is symmetrical, tongue is midline, speech is clear. SKIN: No abrasions or ecchymosis is noted. No induration or masses noted. Significant jaundice identified. PSYCHIATRIC: Alert and pleasant, no apparent distress. Limitations: altered mental status Course Vital Signs 05/15/21 05/15/21 18:30 20:31 Temperature 98.1 F Pulse Rate 68 62 Respiratory 16 15 Rate Blood Pressure 124/87 130/66 O2 Sat by Pulse 100 96 Oximetry Medical Decision Making - Medical Decision Making The patient was seen and examined. All diagnostics are reviewed. The bilirubin is significantly elevated at 11.6. Alk phos is also identified. The lipase is normal. Blood sugar is elevated at 286. Old labs are reviewed and the bilirubin has increased significantly in the past 5 days. A computed tomography scan of the abdomen and pelvis is completed and this shows evidence of some swelling around the pancreatic head which is not specific and they feel as though patient may potentially need ERCP or MRCP. Please see report for details. Case is discussed with Ivana who is the patient's legal guardian and granddaughter. Her contact information is on the chart. She is agreeable with hospitalization and would appreciate any further updates in the future. Case also was discussed with Dr. Conrad who is agreeable with admission and would like patient have an abdominal ultrasound, ammonia level checked, and GI to be consulted. - Lab Data Result diagrams: 05/15/21 18:59 05/15/21 18:59 Lab Results 05/15/21 05/15/21 05/15/21 Range/Units 18:59 18:59 18:59 WBC 5.8 (3.8-10.6) k/uL RBC 4.49 (3.80-5.40) m/uL Hgb 14.1 (11.4-16.0) gm/dL Hct 44.1 (34.0-46.0) % MCV 98.2 (80.0-100.0) fL MCH 31.4 (25.0-35.0) pg MCHC 32.0 (31.0-37.0) g/dL RDW 14.0 (11.5-15.5) % Plt Count 183 (150-450) k/uL MPV 10.9 Neutrophils % 64 % Lymphocytes % 26 % Monocytes % 5 % Eosinophils % 1 % Basophils % 1 % Neutrophils # 3.7 (1.3-7.7) k/uL Lymphocytes # 1.5 (1.0-4.8) k/uL Monocytes # 0.3 (0-1.0) k/uL Eosinophils # 0.1 (0-0.7) k/uL Basophils # 0.0 (0-0.2) k/uL PT 10.5 (9.0-12.0) sec INR 1.0 (<1.2) APTT 23.2 (22.0-30.0) sec Sodium (137-145) mmol/L Potassium (3.5-5.1) mmol/L Chloride (98-107) mmol/L Carbon Dioxide (22-30) mmol/L Anion Gap mmol/L BUN (7-17) mg/dL Creatinine (0.52-1.04) mg/dL Est GFR (CKD-EPI)AfAm (>60 ml/min/1.73 sqM) Est GFR (CKD-EPI)NonAf (>60 ml/min/1.73 sqM) Glucose (74-99) mg/dL Calcium (8.4-10.2) mg/dL Total Bilirubin (0.2-1.3) mg/dL AST (14-36) U/L ALT (4-34) U/L Alkaline Phosphatase (38-126) U/L Total Protein (6.3-8.2) g/dL Albumin (3.5-5.0) g/dL Lipase (23-300) U/L Urine Color Dark Yellow Urine Appearance Clear (Clear) Urine pH 5.5 (5.0-8.0) Ur Specific Doon 1.014 (1.001-1.035) Urine Protein Negative (Negative) Urine Glucose (UA) 1+ H (Negative) Urine Ketones Negative (Negative) Urine Blood Negative (Negative) Urine Nitrite Negative (Negative) Urine Bilirubin 2+ H (Negative) Urine Urobilinogen 2.0 (<2.0) mg/dL Ur Leukocyte Esterase Negative (Negative) 05/15/21 Range/Units 18:59 WBC (3.8-10.6) k/uL RBC (3.80-5.40) m/uL Hgb (11.4-16.0) gm/dL Hct (34.0-46.0) % MCV (80.0-100.0) fL MCH (25.0-35.0) pg MCHC (31.0-37.0) g/dL RDW (11.5-15.5) % Plt Count (150-450) k/uL MPV Neutrophils % % Lymphocytes % % Monocytes % % Eosinophils % % Basophils % % Neutrophils # (1.3-7.7) k/uL Lymphocytes # (1.0-4.8) k/uL Monocytes # (0-1.0) k/uL Eosinophils # (0-0.7) k/uL Basophils # (0-0.2) k/uL PT (9.0-12.0) sec INR (<1.2) APTT (22.0-30.0) sec Sodium 137 (137-145) mmol/L Potassium 4.7 (3.5-5.1) mmol/L Chloride 99 (98-107) mmol/L Carbon Dioxide 29 (22-30) mmol/L Anion Gap 9 mmol/L BUN 15 (7-17) mg/dL Creatinine 0.67 (0.52-1.04) mg/dL Est GFR (CKD-EPI)AfAm >90 (>60 ml/min/1.73 sqM) Est GFR (CKD-EPI)NonAf 81 (>60 ml/min/1.73 sqM) Glucose 286 H (74-99) mg/dL Calcium 8.9 (8.4-10.2) mg/dL Total Bilirubin 11.6 H (0.2-1.3) mg/dL AST 160 H (14-36) U/L ALT 122 H (4-34) U/L Alkaline Phosphatase 609 H (38-126) U/L Total Protein 6.7 (6.3-8.2) g/dL Albumin 3.3 L (3.5-5.0) g/dL Lipase 14 L (23-300) U/L Urine Color Urine Appearance (Clear) Urine pH (5.0-8.0) Ur Specific Doon (1.001-1.035) Urine Protein (Negative) Urine Glucose (UA) (Negative) Urine Ketones (Negative) Urine Blood (Negative) Urine Nitrite (Negative) Urine Bilirubin (Negative) Urine Urobilinogen (<2.0) mg/dL Ur Leukocyte Esterase (Negative) Disposition Clinical Impression: Painless jaundice, Hyperglycemia, Pancreatic abnormality Disposition: ADMITTED IP TO THIS [facility] Condition: Fair Is patient prescribed a controlled substance at d/c from ED?: No Referrals: Miky Arellano MD [Primary Care Provider] - 1-2 days Time of Disposition: 21:43 Decision Date: 05/15/21 Decision Time: 21:43
[2021-05-15] MEDS ORDERED: NALOXONE 0.4 MG/ML 1 ML VIAL IV PRN (21:47)
[2021-05-15] MEDS ORDERED: ONDANSETRON 4 MG/2 ML VIAL IVP PRN (21:47)
[2021-05-15] MEDS ORDERED: IPRATROPIUM-ALBUTEROL 3 ML NEB INHALATION PRN (21:50)
[2021-05-15] MEDS ORDERED: bisacodyL 10 MG SUPP RECTAL PRN (21:50)
[2021-05-15] MEDS ORDERED: MAGNESIUM HYDROXIDE 2,400 MG/10 ML CUP PO PRN (21:50)
[2021-05-15] MEDS ORDERED: NA PHOS,M-B/NA PHOS,DI-BA 133 ML ENEMA RECTAL PRN (21:50)
[2021-05-15] MEDS ORDERED: ACETAMINOPHEN TAB 500 MG TAB PO PRN (21:50)
[2021-05-15] MEDS: APIXABAN 5 MG TAB PO SCH (22:37)
[2021-05-15 22:48] LABS: Glucose,Whole Blood 139 mg/dL (75-99)
[2021-05-15 22:55] LABS: Acetaminophen 11.6 ug/mL; Digoxin 0.5 ng/mL
[2021-05-16] MEDS: DIGOXIN 125 MCG TAB PO SCH (05:50)
[2021-05-16] MEDS: LEVOTHYROXINE 125 MCG TAB PO SCH (05:50)
[2021-05-16 07:27] LABS: Glucose,Whole Blood 182 mg/dL (75-99)
[2021-05-16 07:30] LABS: ALT 121 U/L (4-34); AST 155 U/L (14-36); African American GFR (CKD) >90 (>60 ml/min/1.73 sqM); Albumin 3.2 g/dL (3.5-5.0); Alkaline Phosphatase 683 U/L (38-126); Anion Gap 7 mmol/L; Blood Urea Nitrogen 11 mg/dL (7-17); Carbon Dioxide 31 mmol/L (22-30); Chloride 102 mmol/L (98-107); Glucose 153 mg/dL (74-99); Non-African American GFR(CKD) 84 (>60 ml/min/1.73 sqM); Potassium 3.3 mmol/L (3.5-5.1); Sodium 140 mmol/L (137-145); Total Bilirubin 14.9 mg/dL (0.2-1.3); Total Protein 6.5 g/dL (6.3-8.2)
[2021-05-16] MEDS ORDERED: ENSURE CLEAR PO SCH (08:00)
[2021-05-16] MEDS: INSULIN ASPART (NovoLOG) 100 UNIT/ML VIAL SQ SCH ×4 (08:15→21:54)
[2021-05-16] MEDS: IPRATROPIUM-ALBUTEROL 3 ML NEB INHALATION SCH ×2 (08:57→21:20)
--- NOTE | 2021-05-16 09:33 | US ---
EXAMINATION TYPE: US abdomen complete DATE OF EXAM: 05/16/2021 COMPARISON: NONE CLINICAL HISTORY: painless jaundice. elderly female with h/o cholecystectomy now presents with painle ss jaundice EXAM MEASUREMENTS: Liver Length: 17.0 cm Gallbladder Wall: Surgically absent CBD: not seen Spleen: not seen Right Kidney: 9.4 x 4.8 x 4.4 cm Left Kidney: 8.9 x 3.5 x 4.8 cm essentially nondiagnostic US for jaundice, limited views due to bowel gas and habitus Pancreas: not seen Liver: very few intercostal images of right lobe seen Gallbladder: Surgically absent Evidence for sonographic Foster's sign: no CBD: unable to visualize due to reasons stated above Spleen: unable to visualize due to reasons stated above Right Kidney: wnl Left Kidney: wnl Upper IVC: wnl Abd Aorta: wnl IMPRESSION: 1. Severely limited exam as discussed by the technologist above. Exam severely limited. Liver does ap pear to be increased in echogenicity which can be seen with hepatocellular disease including hepatiti s or hepatic steatosis. Correlate clinically.
[2021-05-16] MEDS: APIXABAN 5 MG TAB PO SCH ×2 (09:46→17:11)
[2021-05-16] MEDS: METOPROLOL TARTRATE 25 MG TAB PO SCH ×2 (09:50→21:55)
[2021-05-16] MEDS: CALCIUM CARBONATE 500 MG CHEWABLE PO SCH (09:50)
[2021-05-16] MEDS: POTASSIUM CHLORIDE ER 10 MEQ TAB.ER.PRT PO SCH (09:50)
[2021-05-16] MEDS: FUROSEMIDE 40 MG TAB PO SCH ×2 (09:51→16:04)
[2021-05-16] MEDS: ARIPiprazole 5 MG TAB PO SCH (09:51)
[2021-05-16] MEDS: LORATADINE 10 MG TAB PO SCH (09:51)
[2021-05-16] MEDS: ARIPiprazole 2 MG TAB PO SCH (09:51)
[2021-05-16] MEDS: FAMOTIDINE 20 MG TAB PO SCH (09:51)
[2021-05-16] MEDS: ARTIFICIAL TEARS-HYPROMELLOSE DROPS 15 ML BTL BOTH EYES SCH ×3 (09:54→21:55)
[2021-05-16] MEDS: KETOTIFEN 0.025% OPHTH DROPS 5 ML BTL BOTH EYES SCH ×2 (09:54→21:55)
[2021-05-16 12:08] LABS: Glucose,Whole Blood 165 mg/dL (75-99)
--- NOTE | 2021-05-16 14:26 | P.CONS ---
History of Present Illness - Reason for Consult Consult date: 05/16/21 Painless jaundice Requesting physician: Tani Aragon - Chief Complaint Jaundice - History of Present Illness This is a 86-year-old white female who presented to the emergency room from her extended care facility for yellowing of her skin. Apparently the patient had be en becoming more yellow over the last several days and she had blood work done showing elevated bilirubin. Patient denies any previous history of liver disease or known hepatitis. She doesn't have a history of a cholecystectomy many years ago however she is unsure about when and why. She denies any previous history of alcoholism. On admission she had a total bilirubin of 11.6 AST 160 ALT 122 alkaline phosphatase 609 lipase 14. WBC 5.8 hemoglobin 14 hematocrit 44 platelet count 183,000, INR 1.0. Had a CT of the abdomen and pelvis that showed cholecystectomy with mild. Mild biliary dilation, nonspecific and may represent postsurgical change. Nonspecific mild prominence of the pancreatic head with subtle mild pancreatic ductal dilation. No obvious pancreatic attic lesion seen. Consider nonemergent MRCP or ERCP for optimal evaluation and exclude underlying lesion. Patient also underwent ultrasound of the abdomen however it was a poor study. She denies any abdominal pain, nausea, or vomiting. She denies any fevers or chills. No new medications that she is aware of. Review of Systems REVIEW OF SYSTEMS: CARDIOPULMONARY: No chest pain or shortness of breath. Gastrointestinal: No abdominal pain. No nausea or vomiting. No hematemesis, coffee-ground emesis. No rectal bleeding, or melena. GENITOURINARY: No dysuria or hematuria. MUSCULOSKELETAL: Reports normal range of motion., Joint pain. SKIN: No rashes. Jaundice. ENDOCRINE: No chills, fevers. No excessive weight gain or loss. No polydipsia or polyuria. PSYCHIATRIC: Unremarkable. NEUROLOGY: No change in mental status. Denies dizziness, headache. ENT: Vision unremarkable. CONSTITUTIONAL: No recent weight loss. No fever, chills, night sweats. Past Medical History Past Medical History: Atrial Fibrillation, Coronary Artery Disease (CAD), Heart Failure, COPD, Dementia, Hyperlipidemia, Hypertension, Memory Impairment, Thyroid Disorder History of Any Multi-Drug Resistant Organisms: MRSA Year Discovered:: 10/10/16 MDRO Source:: back Past Surgical History: Joint Replacement Additional Past Surgical History / Comment(s): R hip Past Anesthesia/Blood Transfusion Reactions: No Reported Reaction Past Psychological History: Bipolar, Schizophrenia Smoking Status: Never smoker Past Alcohol Use History: None Reported Past Drug Use History: None Reported Medications and Allergies Home Medications Medication Instructions Recorded Confirmed Type ARIPiprazole [Abilify] 2 mg PO DAILY@0800 07/25/19 05/15/21 History ARIPiprazole [Abilify] 5 mg PO DAILY@0800 07/25/19 05/15/21 History Acetaminophen Tab [Tylenol] 500 mg PO BID PRN 07/25/19 05/15/21 History Artificial Tears-Hypromellose 1 drop BOTH EYES TID@0800,1200,1700 07/25/1905/15 History [Artificial Tear Drops] Ergocalciferol (Vitamin D2) 50,000 unit PO Q14D@0 07/25/19 05/15/21 History [Drisdol (50,000 Iu)] Furosemide [Lasix] 40 mg PO BID@0800,1700 07/25/19 05/15/21 History Levothyroxine Sodium 125 mcg PO DAILY@0800 07/25/19 05/15/21 History Loratadine 10 mg PO DAILY@0800 07/25/19 05/15/21 History Magnesium Hydroxide [Milk of 7,200 mg PO Q48H PRN 07/25/19 05/15/21 History Magnesia Concentrate] Na Phos,M-B/Na Phos,Di-Ba [Fleet 133 ml RECTAL DAILY PRN 07/25/19 05/15/21 History Adult] Olopatadine HCl [Patanol 0.1%] 1 drop BOTH EYES BID@0800,1700 07/25/19 05/15/21 History Oyster Shell Calcium 500mg 500 mg PO DAILY@0800 07/25/19 05/15/21 History Potassium Chloride [Potassium 10 meq PO DAILY@0800 07/25/19 05/15/21 History Chloride ER] bisacodyL [Dulcolax] 10 mg RECTAL DAILY PRN 07/25/19 05/15/21 History Metoprolol Tartrate [Lopressor] 75 mg PO BID@0800,1700 tab 07/29/19 05/15/21 Rx Apixaban [Eliquis] 5 mg PO BID@0800,1700 05/15/21 05/15/21 History Digoxin [Lanoxin] 125 mcg PO DAILY@0600 05/15/21 05/15/21 History Ensure Clear 237 ml PO TID@0800,1200,1700 05/15/21 05/15/21 History Famotidine [Pepcid] 20 mg PO DAILY@0800 05/15/21 05/15/21 History Ipratropium-Albuterol Nebulize 3 ml INHALATION RT-BID@0800,1700 05/15/21 05/15/21 History [Duoneb 0.5 mg-3 mg/3 ml Soln] Ipratropium-Albuterol Nebulize 3 ml INHALATION RT-QID PRN 05/15/21 05/15/21 History [Duoneb 0.5 mg-3 mg/3 ml Soln] Allergies Allergy/AdvReac Type Severity Reaction Status Date / Time erythromycin base Allergy Unknown Verified 05/15/21 19:06 [From Erythrocin] levofloxacin [From Levaquin] Allergy Unknown Verified 05/15/21 19:06 Penicillins Allergy Unknown Verified 05/15/21 19:06 Physical Exam Vitals: Vital Signs Temp Pulse Pulse Resp BP BP Pulse Ox 05/16/21 09:11 106 H 05/16/21 08:57 101 H 05/16/21 03:50 97.8 F 76 18 115/81 99 05/15/21 22:44 72 18 130/66 99 05/15/21 20:31 62 15 130/66 96 05/15/21 18:30 98.1 F 68 16 124/87 100 Intake and Output 05/15/21 05/16/21 05/16/21 22:59 06:59 14:59 Other: Voiding Method Diaper Diaper Incontinent Incontinent Weight 81.647 kg 81.647 kg General appearance: The patient is alert, oriented, appears in no acute distress. HET: Head is normocephalic and atraumatic. Conjunctiva pink. Sclera deeply icteric. Neck: Supple without lymphadenopathy. Trachea midline. Heart: S1 S2. Regular rate and rhythm. Lungs: Clear to auscultation. Abdomen: Soft, base, nontender, nondistended with bowel sounds. No guarding or rigidity. Skin: No rashes. Jaundice. Extremities: Normal skin color and turgor. No pedal edema. Neurological: No focal deficits. Alert and oriented x3. Results CBC & Chem 7: 05/15/21 18:59 05/16/21 04:57 Labs: Abnormal Lab Results - Last 24 Hours (Table) 05/15/21 05/15/21 05/15/21 Range/Units 18:59 18:59 22:42 Potassium (3.5-5.1) mmol/L Carbon Dioxide (22-30) mmol/L Glucose 286 H (74-99) mg/dL POC Glucose (mg/dL) 139 H (75-99) mg/dL Total Bilirubin 11.6 H (0.2-1.3) mg/dL AST 160 H (14-36) U/L ALT 122 H (4-34) U/L Alkaline Phosphatase 609 H (38-126) U/L Albumin 3.3 L (3.5-5.0) g/dL Lipase 14 L (23-300) U/L Urine Glucose (UA) 1+ H (Negative) Urine Bilirubin 2+ H (Negative) 05/16/21 05/16/21 Range/Units 04:57 07:24 Potassium 3.3 L (3.5-5.1) mmol/L Carbon Dioxide 31 H (22-30) mmol/L Glucose 153 H (74-99) mg/dL POC Glucose (mg/dL) 182 H (75-99) mg/dL Total Bilirubin 14.9 H (0.2-1.3) mg/dL AST 155 H (14-36) U/L ALT 121 H (4-34) U/L Alkaline Phosphatase 683 H (38-126) U/L Albumin 3.2 L (3.5-5.0) g/dL Lipase (23-300) U/L Urine Glucose (UA) (Negative) Urine Bilirubin (Negative) CT scan - abdomen: report reviewed (As stated in HPI) US - abdomen: report reviewed Assessment and Plan (1) Hyperbilirubinemia Narrative/Plan: 86-year-old female who presented to the emergency department with jaundice. Patient is living in an extended care facility and was brought in with reported jaundice over the last several days duration. Patient denies any previous history of liver disease, hepatitis, or alcoholism. She denies any abdominal pain or nausea and vomiting. She does have a history of cholecystectomy several years ago. She was noted to have elevated bilirubin as well as LFTs. She had a CT of the abdomen and pelvis showing nonspecific mild prominence of pancreatic head with subtle mild pancreatic ductal dilation. No obvious pancreatic lesion seen. Consider nonemergent MRCP or ERCP. Cholecystectomy mild biliary ductal dilation which may be related to post surgical change. Total bilirubin on admission was 11.6 now 14.9, AST 155 ALT 121 of coryza phosphatase 683 lipase was 14. Acetaminophen level was 11.6 patient was negative for vital virus PCR. The possible etiologies include biliary obstruction versus malignancy. CA-19-9 ordered, hepatitis panel ordered, pancreatic MRI with MRCP ordered. Current Visit: Yes Status: Acute Code(s): E80.6 - OTHER DISORDERS OF BILIRUBIN METABOLISM SNOMED Code(s): 11905132 Plan: 1. Continue symptomatic and supportive care 2. MRI pancreas/MRCP ordered 3. CA-19-9, hepatitis panel ordered 4. Patient may have low-fat diet after imaging 5. Possible patient may need transfer to a tertiary center for ERCP/EUS versus outpatient follow-up based on MRCP results 6. Avoid hepatotoxic medications Thank you for this consultation, we will continue to follow. GI statement Dr. Eric Muniz I agree with the dictator's note, documented as a scribe by Elsy Dempsey.
--- NOTE | 2021-05-16 14:42 | P.HPIM ---
History of Present Illness H&P Date: 05/16/21 HISTORY OF PRESENT ILLNESS This is an 86-year-old female patient of Dr. 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 Patient was noted to have abnormal labs about 5 days ago. She was then noted to have jaundice. Patient denies having any abdominal pain, no nausea or vomiting. She has history of cholecystectomy many years ago. No history of alcohol abuse. Laboratory studies revealed total bilirubin 1.6, AST 160, ALT 122, alkaline phosphatase 609, lipase 14. WBC 5.8, hemoglobin 14, platelet count 183. INR 1. CAT scan of the abdomen and pelvis which revealed cholecystectomy with mild biliary di latation, nonspecific and may represent postsurgical change. Nonspecific mild prominence of the pancreatic head with subtle mild pancreatic ductal dilatation. No obvious pancreatic lesion. Consider nonemergent MRCP or ERCP to exclude underlying lesion. Abdominal ultrasound was poor study. Consult with GI and plan is for MRCP, lab work including CA 199, CEA, alpha-fetoprotein. Patient may need transfer to tertiary center for ERCP/EUS REVIEW OF SYSTEMS Constitutional: No fever, no chills, no night sweats. No weight change. No weakness, fatigue or lethargy. No daytime sleepiness. EENT: No headache. No blurred vision or double vision, no loss of vision. No l oss of Hearing, no ringing in the ears, no dizziness. No nasal drainage or congestion. No epistaxis. No sore throat. Lungs: No shortness of breath, cough, no sputum production. No wheezing. Cardiovascular: No chest pain, no lower extremity edema. No palpitations. No paroxysmal nocturnal dyspnea. No orthopnea. No lightheadedness or dizziness. No syncopal episodes. Abdominal: Denies abdominal pain. No nausea, vomiting. No diarrhea. No constipation. No bloody or tarry stools. No loss of appetite. Positive jaundice Genitourinary: No dysuria, increased frequency, urgency. No urinary retention. Musculoskeletal: No myalgias. No muscle weakness, no gait dysfunction, no frequent falls. No back pain. No neck pain. Integumentary: No wounds, no lesions. No rash or pruritus. No unusual bruising. No change in hair or nails. Neurologic: No aphasia. No facial droop. No change in mentation. No head injury. No headache. No paralysis. No paresthesia. Psychiatric: No depression. No anxiety. No mood swings. Endocrine: No abnormal blood sugars. No weight change. No excessive sweating or thirst. No cold intolerance. SOCIAL HISTORY Unable to obtain due to patient's baseline mentation. FAMILY HISTORY Unable to obtain due to patient's baseline mentation. PHYSICAL EXAMINATION Gen: This is an 86-year-old female. She is resting in bed and appears to be comfortable and in no acute distress. Sclerae and all skin is jaundice. HEENT: Head is atraumatic, normocephalic. Pupils equal, round. Sclerae is icteric. NECK: Supple. No JVD. No lymphadenopathy. No thyromegaly. LUNGS: Clear to auscultation. No wheezes or rhonchi. No intercostal retractions. HEART: Regular rate and rhythm. No murmur. ABDOMEN: Soft. Bowel sounds are present. No masses. No tenderness. No palpable mass. EXTREMITIES: No pedal edema. No calf tenderness. NEUROLOGICAL: Patient is awake, alert and oriented to self. ASSESSMENT AND PLAN 1. Asymptomatic jaundice. GI consult appreciated, MRCP ordered. A is nothing by mouth. CA 199, CEA, alpha-fetoprotein, acute hepatitis panel ordered. 2. Chronic systolic heart failure. Continue Lasix 40 mg oral twice daily, Lopressor 75 mg twice daily. 3. COPD without exacerbation. Continue DuoNeb treatments twice daily and as needed. 4. Advanced Alzheimer's dementia. Reorient patient. 5. Hypothyroidism. Continue levothyroxine 125 g daily. 6. Chronic atrial fibrillation. Continue eliquis 5 mg twice daily, digoxin 125 g daily, Lopressor 75 mg twice daily. 7. Bipolar disorder and schizophrenia. Continue Abilify 7 mg daily. 8. Gastroesophageal reflux disease disease and GI prophylaxis. Continue Pepcid 20 mg daily. 9. COVID-19 testing negative. Patient has been hospitalized during a pandemic. Patient will be admitted to the hospital for a minimum of 2 night stay. DISCHARGE PLAN Return to [facility]. Impression and plan of care have been directed as dictated by the signing physician. Rosa Elena Damon nurse practitioner acting as scribe for signing physician. Past Medical History Past Medical History: Atrial Fibrillation, Coronary Artery Disease (CAD), Heart Failure, COPD, Dementia, Hyperlipidemia, Hypertension, Memory Impairment, Thyroid Disorder History of Any Multi-Drug Resistant Organisms: MRSA Date of last positivie culture/infection: 10/10/16 MDRO Source:: back Past Surgical History: Joint Replacement Additional Past Surgical History / Comment(s): R hip Past Anesthesia/Blood Transfusion Reactions: No Reported Reaction Past Psychological History: Bipolar, Schizophrenia Smoking Status: Never smoker Past Alcohol Use History: None Reported Past Drug Use History: None Reported Medications and Allergies Home Medications Medication Instructions Recorded Confirmed Type ARIPiprazole [Abilify] 2 mg PO DAILY@0800 07/25/19 05/15/21 History ARIPiprazole [Abilify] 5 mg PO DAILY@0800 07/25/19 05/15/21 History Acetaminophen Tab [Tylenol] 500 mg PO BID PRN 07/25/19 05/15/21 History Artificial Tears-Hypromellose 1 drop BOTH EYES TID@0800,1200,1700 07/25/19 0 05/15/21 History [Artificial Tear Drops] Ergocalciferol (Vitamin D2) 50,000 unit PO Q14D@1700 07/25/19 05/15/21 History [Drisdol (50,000 Iu)] Furosemide [Lasix] 40 mg PO BID@0800,1700 07/25/19 05/15/21 History Levothyroxine Sodium 125 mcg PO DAILY@0800 07/25/19 05/15/21 History Loratadine 10 mg PO DAILY@0800 07/25/19 05/15/21 History Magnesium Hydroxide [Milk of 7,200 mg PO Q48H PRN 07/25/19 05/15/21 History Magnesia Concentrate] Na Phos,M-B/Na Phos,Di-Ba [Fleet 133 ml RECTAL DAILY PRN 07/25/19 05/15/21 History Adult] Olopatadine HCl [Patanol 0.1%] 1 drop BOTH EYES BID@0800,1700 07/25/19 05/15/21 History Oyster Shell Calcium 500mg 500 mg PO DAILY@0800 07/25/19 05/15/21 History Potassium Chloride [Potassium 10 meq PO DAILY@0800 07/25/19 05/15/21 History Chloride ER] bisacodyL [Dulcolax] 10 mg RECTAL DAILY PRN 07/25/19 05/15/21 History Metoprolol Tartrate [Lopressor] 75 mg PO BID@0800,1700 tab 07/29/19 05/15/21 Rx Apixaban [Eliquis] 5 mg PO BID@0800,1700 05/15/21 05/15/21 History Digoxin [Lanoxin] 125 mcg PO DAILY@0600 05/15/21 05/15/21 History Ensure Clear 237 ml PO TID@0800,1200,1700 05/15/21 05/15/21 History Famotidine [Pepcid] 20 mg PO DAILY@0800 05/15/21 05/15/21 History Ipratropium-Albuterol Nebulize 3 ml INHALATION RT-BID@0800,1700 05/15/21 05/15/21 History [Duoneb 0.5 mg-3 mg/3 ml Soln] Ipratropium-Albuterol Nebulize 3 ml INHALATION RT-QID PRN 05/15/21 05/15/21 History [Duoneb 0.5 mg-3 mg/3 ml Soln] Allergies Allergy/AdvReac Type Severity Reaction Status Date / Time erythromycin base Allergy Unknown Verified 05/15/21 19:06 [From Erythrocin] levofloxacin [From Levaquin] Allergy Unknown Verified 05/15/21 19:06 Penicillins Allergy Unknown Verified 05/15/21 19:06 Physical Exam Vitals: Vital Signs Temp Pulse Pulse Resp BP BP Pulse Ox 05/16/21 09:11 106 H 05/16/21 08:57 101 H 05/16/21 08:30 97.5 F L 64 17 115/75 100 05/16/21 03:50 97.8 F 76 18 115/81 99 05/15/21 22:44 72 18 130/66 99 05/15/21 20:31 62 15 130/66 96 05/15/21 18:30 98.1 F 68 16 124/87 100 Intake and Output 05/15/21 05/16/21 05/16/21 22:59 06:59 14:59 Other: Voiding Method Diaper Diaper Incontinent Incontinent # Bowel Movements 1 Weight 81.647 kg 81.647 kg Results CBC & Chem 7: 05/15/21 18:59 05/16/21 04:57 Labs: Abnormal Lab Results - Last 24 Hours (Table) 05/15/21 05/15/21 05/15/21 Range/Units 18:59 18:59 22:42 Potassium (3.5-5.1) mmol/L Carbon Dioxide (22-30) mmol/L Glucose 286 H (74-99) mg/dL POC Glucose (mg/dL) 139 H (75-99) mg/dL Total Bilirubin 11.6 H (0.2-1.3) mg/dL AST 160 H (14-36) U/L ALT 122 H (4-34) U/L Alkaline Phosphatase 609 H (38-126) U/L Albumin 3.3 L (3.5-5.0) g/dL Lipase 14 L (23-300) U/L Urine Glucose (UA) 1+ H (Negative) Urine Bilirubin 2+ H (Negative) 05/16/21 05/16/21 Range/Units 04:57 07:24 Potassium 3.3 L (3.5-5.1) mmol/L Carbon Dioxide 31 H (22-30) mmol/L Glucose 153 H (74-99) mg/dL POC Glucose (mg/dL) 182 H (75-99) mg/dL Total Bilirubin 14.9 H (0.2-1.3) mg/dL AST 155 H (14-36) U/L ALT 121 H (4-34) U/L Alkaline Phosphatase 683 H (38-126) U/L Albumin 3.2 L (3.5-5.0) g/dL Lipase (23-300) U/L Urine Glucose (UA) (Negative) Urine Bilirubin (Negative) Thrombosis Risk Factor Assmnt - Choose All That Apply Any of the Below Risk Factors Present?: Yes Each Factor Represents 1 point: Abnormal pulmonary function (COPD), Obesity (BMI >25) Other Risk Factors: Yes Each Risk Factor Represents 3 Points: Age 75 years or older Other congenital or acquired thrombophilia - If yes, enter type in comment: No Thrombosis Risk Factor Assessment Total Risk Factor Score: 5 Thrombosis Risk Factor Assessment Level: High Risk
--- NOTE | 2021-05-16 15:31 | MR ---
EXAMINATION TYPE: MR pancreas / mrcp wo/w con DATE OF EXAM: 05/16/2021 COMPARISON: CT abdomen and pelvis from yesterday HISTORY: Painless jaundice, abnormal CT abd/pelvis CONTRAST: Standard multiplanar, multisequence MRI departmental protocol images were obtained without contrast a nd with 8 mL intravenous Gadavist gadolinium contrast. Imaging performed of the abdomen focusing on the pancreas without and with IV contrast. MRCP imaging was not performed as patient refused for cont inued exam. FINDINGS: Exam suboptimal due to motion artifact degradation. Liver/gallbladder/pancreas/biliary system: Gallbladder is redemonstrated surgically absent. Liver rem ains normal in size without concerning solid or cystic mass. Mild diffuse signal dropout consistent w ith mild diffuse fatty infiltration is felt present. Pancreas shows moderate diffuse atrophy with mod erate diffuse ductal dilatation. Areas of slight narrowing in the duct are present. There is 11 x 6 m m thin-walled cyst or cystic lesion just superior to the distal body axial image 33 on MRI that is no t clearly seen on CT. There is heterogeneous prominence of the level of the pancreatic head axial wallace ge 25 for reference. Dynamic postcontrast imaging shows diffuse enhancement of the pancreas slightly more prominent at this level without obvious nonenhancing mass but heterogeneity. Mild extrahepatic biliary dilatation at 13 mm coronal image 20. Mild central intrahepatic biliary dil atation is also present. Adjacent remnant cystic duct is suspected as there is markedly dilated and t ortuous duct noted on same coronal image. Low-lying cystic duct insertion suspected near the duodenal ampulla. On CT correlating with MRI the stomach is above the diaphragm without any stomach below rosalinda phragm. At The level of the pancreatic head there is thin-walled 9 mm cyst or possible focal ductal d ilatation coronal image 18 near the level of the duodenal sweep. Other: Large sized hiatal hernia or intrathoracic stomach is redemonstrated. Posterior dependent atel ectatic change is same. Suspicious left lung basilar nodules correlate with recent CT axial images 2 through 4 for reference. Spleen and both adrenal glands appear within normal limits. No hydronephrosis is seen bilaterally. No suspicious bowel dilatation or intra-abdominal ascites. Postsurgical change of the lumbar spine is i ncidentally noted. IMPRESSION: Suboptimal study. Confirmation of mild biliary dilatation. Unusual dilated cystic duct re mnant with low lying insertion thought present. Pancreas findings suspicious for product of chronic p ancreatitis. Cannot exclude underlying ampullary mass or neoplasm. Consider endoscopic ultrasound and /or ERCP evaluation to further evaluate and characterize somewhat unusual case.
[2021-05-16 16:45] LABS: Glucose,Whole Blood 164 mg/dL (75-99)
[2021-05-16 17:50] LABS: Hepatitis A Antibody IgM Nonreactive (Nonreactive); Hepatitis B Core IgM Nonreactive (Nonreactive); Hepatitis B Surface Antigen Nonreactive (Nonreactive); Hepatitis C IgG Antibody Nonreactive (Nonreactive)
[2021-05-16 20:50] LABS: Glucose,Whole Blood 179 mg/dL (75-99)
[2021-05-17] MEDS: DIGOXIN 125 MCG TAB PO SCH (05:48)
[2021-05-17] MEDS: LEVOTHYROXINE 125 MCG TAB PO SCH (05:48)
[2021-05-17 06:30] LABS: Carcinoembryonic Antigen 4.1 ng/mL (0.0-4.9)
[2021-05-17 07:28] LABS: Glucose,Whole Blood 181 mg/dL (75-99)
[2021-05-17 07:33] LABS: Alpha Fetoprotein, Tumor Mkr <1.82 ng/mL (0.00-7.90)
[2021-05-17] MEDS: INSULIN ASPART (NovoLOG) 100 UNIT/ML VIAL SQ SCH ×4 (08:17→21:09)
[2021-05-17] MEDS: APIXABAN 5 MG TAB PO SCH (08:18)
[2021-05-17] MEDS: FAMOTIDINE 20 MG TAB PO SCH (08:19)
[2021-05-17] MEDS: ARTIFICIAL TEARS-HYPROMELLOSE DROPS 15 ML BTL BOTH EYES SCH ×3 (08:19→21:10)
[2021-05-17] MEDS: CALCIUM CARBONATE 500 MG CHEWABLE PO SCH (08:19)
[2021-05-17] MEDS: ARIPiprazole 5 MG TAB PO SCH (08:19)
[2021-05-17] MEDS: ARIPiprazole 2 MG TAB PO SCH (08:19)
[2021-05-17] MEDS: KETOTIFEN 0.025% OPHTH DROPS 5 ML BTL BOTH EYES SCH ×2 (08:20→21:10)
[2021-05-17] MEDS: POTASSIUM CHLORIDE ER 10 MEQ TAB.ER.PRT PO SCH (08:20)
[2021-05-17] MEDS: FUROSEMIDE 40 MG TAB PO SCH ×2 (08:20→18:17)
[2021-05-17] MEDS: METOPROLOL TARTRATE 25 MG TAB PO SCH ×2 (08:20→21:09)
[2021-05-17] MEDS: LORATADINE 10 MG TAB PO SCH (08:20)
[2021-05-17] MEDS: IPRATROPIUM-ALBUTEROL 3 ML NEB INHALATION SCH ×2 (09:31→21:45)
[2021-05-17 11:11] LABS: HCT 41.4 % (34.0-46.0); HGB 13.1 gm/dL (11.4-16.0); MCH 31.3 pg (25.0-35.0); MCHC 31.6 g/dL (31.0-37.0); MCV 99.3 fL (80.0-100.0); Platelet Count 181 k/uL (150-450); RBC 4.17 m/uL (3.80-5.40); RDW 14.3 % (11.5-15.5); WBC 6.9 k/uL (3.8-10.6)
--- NOTE | 2021-05-17 11:20 | P.PN ---
Subjective Progress Note Date: 05/17/21 Principal diagnosis: Jaundice This is an 86-year-old female who presented to the emergency department from her extended care facility with painless jaundice. On admission total bilirubin was 11.6 yesterday increased to 14.9. Today is currently pending. The patient has no previous history of known pancreatic disease or pancreatitis. No known liver disease. Yesterday the patient underwent MRI of the pancreas/MRCP with findings of confirmation of mild biliary dilation. Unusual dilated cystic duct remnant with low-lying insertion not present. Pancreas findings suspicious for product of chronic pancreatitis. Cannot exclude underlying ampullary mass or neoplasm. Consider endoscopic ultrasound and/or ERCP for further evaluation. CA 19 9 antigen 50.1, CEA 4.1, AFP less than 1.82. Hepatitis panel nonreactive. Objective - Vital Signs Vital signs: Vital Signs Temp 97.4 F L 05/17/21 07:53 Pulse 75 05/17/21 09:42 Resp 14 05/17/21 07:53 BP 102/67 05/17/21 07:53 Pulse Ox 90 L 05/17/21 07:53 Intake & Output 05/16/21 05/17/21 05/17/21 18:59 06:59 18:59 Other: Voiding Method Diaper Diaper Incontinent Incontinent # Voids 4 # Bowel Movements 1 - Exam General appearance: The patient is alert, oriented, appears in no acute distress. Obese. HET: Head is normocephalic and atraumatic. Conjunctiva pink. Sclera deeply icteric. Neck: Supple without lymphadenopathy. Abdomen: Soft, obese, nontender, nondistended with bowel sounds. No guarding or rigidity. Extremities: Jaundice. No pedal edema Skin: No rashes, deeply jaundiced. Neurological: No focal deficits. Alert and oriented -3. - Labs CBC & Chem 7: 05/17/21 10:45 05/16/21 04:57 Labs: Abnormal Lab Results - Last 24 Hours (Table) 05/16/21 05/16/21 05/16/21 Range/Units 04:57 12:06 16:44 POC Glucose (mg/dL) 165 H 164 H (75-99) mg/dL CA 19-9 Antigen 50.1 H (0.0-34.9) U/mL 05/16/21 05/17/21 Range/Units 20:49 07:27 POC Glucose (mg/dL) 179 H 181 H (75-99) mg/dL CA 19-9 Antigen (0.0-34.9) U/mL Assessment and Plan (1) Hyperbilirubinemia Narrative/Plan: 86-year-old female who presented to the emergency department with jaundice. Patient is living in an extended care facility and was brought in with reported jaundice over the last several days duration. Patient denies any previous history of liver disease, hepatitis, or alcoholism. She denies any abdominal pain or nausea and vomiting. She does have a history of cholecystectomy several years ago. She was noted to have elevated bilirubin as well as LFTs. She had a CT of the abdomen and pelvis showing nonspecific mild prominence of pancreatic head with subtle mild pancreatic ductal dilation. No obvious pancreatic lesion seen. Consider nonemergent MRCP or ERCP. Cholecystectomy mild biliary ductal dilation which may be related to post surgical change. Total bilirubin on admission was 11.6 now 14.9, AST 155 ALT 121 of coryza phosphatase 683 lipase was 14. Acetaminophen level was 11.6 patient was negative for vital virus PCR. The possible etiologies include biliary obstruction versus malignancy. CA-19-9 ordered, hepatitis panel ordered, pancreatic MRI with MRCP ordered. Current Visit: Yes Status: Acute Code(s): E80.6 - OTHER DISORDERS OF BILIRUBIN METABOLISM SNOMED Code(s): 92100230 (2) Abnormal MRI of abdomen Narrative/Plan: MRI of pancreas/MRCP shows confirmation of mild biliary dilation. Unusual dilated cystic duct remnant with low lying insertion thought present. Pancreas findings suspicious for products of chronic pancreatitis. Cannot exclude underlying ampullary mass or neoplasm. Consider endoscopic ultrasound and/or ERCP evaluation to further evaluate and characterize somewhat unusual case. Current Visit: Yes Status: Acute Code(s): R93.5 - ABN FINDINGS ON DX IMAGING OF ABD REGIONS, INC RETROPERITON SNOMED Code(s): 315840624 Plan: 1. Continue symptomatic and supportive care 2. MRI pancreas/MRCP ordered and reviewed 3. Daily CMP 4. Continue low-fat diet 5. Avoid hepatotoxic medications 6. Recommend transfer to tertiary hospital for EUS/ERCP for further evaluation of possible underlying ampullary mass or neoplasm. Primary medicine team notified. 7. Case management consulted for transfer to [facility] Thank you for this consultation, we will continue to follow. Dr. Eric Muniz I agree with the dictator's note, documented as a scribe by Elsy Dempsey.
[2021-05-17 11:32] LABS: ALT 97 U/L (4-34); AST 127 U/L (14-36); African American GFR (CKD) 76 (>60 ml/min/1.73 sqM); Albumin 3.1 g/dL (3.5-5.0); Alkaline Phosphatase 617 U/L (38-126); Anion Gap 6 mmol/L; Blood Urea Nitrogen 15 mg/dL (7-17); Carbon Dioxide 36 mmol/L (22-30); Chloride 97 mmol/L (98-107); Globulin 3.2 g/dL; Glucose 188 mg/dL (74-99); Non-African American GFR(CKD) 66 (>60 ml/min/1.73 sqM); Sodium 139 mmol/L (137-145); Total Protein 6.3 g/dL (6.3-8.2)
[2021-05-17 11:46] LABS: Glucose,Whole Blood 182 mg/dL (75-99)
--- NOTE | 2021-05-17 16:29 | P.PN ---
Subjective Progress Note Date: 05/17/21 HISTORY OF PRESENT ILLNESS This is an 86-year-old female patient of Dr. 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 Patient was noted to have abnormal labs about 5 days ago. She was then noted to have jaundice. Patient denies having any abdominal pain, no nausea or vomiting. She has history of cholecystectomy many years ago. No history of alcohol abuse. Laboratory studies revealed total bilirubin 1.6, AST 160, ALT 122, alkaline phosphatase 609, lipase 14. WBC 5.8, hemoglobin 14, platelet count 183. INR 1. CAT scan of the abdomen and pelvis which revealed cholecystectomy with mild biliary dilatation, nonspecific and may represent postsurgical change. Nonspecific mild prominence of the pancreatic head with subtle mild pancreatic ductal dilatation. No obvious pancreatic lesion. Consider nonemergent MRCP or ERCP to exclude underlying lesion. Abdominal ultrasound was poor study. Consult with GI and plan is for MRCP, lab work including CA 199, CEA, alpha-fetoprotein. Patient may need transfer to tertiary center for ERCP/EUS 05/17: Patient underwent MRI of the pancreas/MRCP with findings of confirmation of mild biliary dilation. Unusual dilated cystic duct remnant with low-lying insertion not present. Pancreas findings suspicious for product of chronic pancreatitis. Cannot exclude underlying ampullary mass or neoplasm. Consider endoscopic ultrasound and/or ERCP for further evaluation. CA 19 9 antigen 50.1, CEA 4.1, AFP less than 1.82. Hepatitis panel nonreactive. GI has recommended transfer to tertiary care center EUS/ERCP. manager marketing sales is working on transfer. Patient's granddaughter/legal guardian was updated and she wished to move forward with transfer and requested Jaskaran Weiner or Danilo. REVIEW OF SYSTEMS Constitutional: No fever, no chills, no night sweats. No weight change. No weakness, fatigue or lethargy. No daytime sleepiness. EENT: No headache. No blurred vision or double vision, no loss of vision. No loss of Hearing, no ringing in the ears, no dizziness. No nasal drainage or congestion. No epistaxis. No sore throat. Lungs: No shortness of breath, cough, no sputum production. No wheezing. Cardiovascular: No chest pain, no lower extremity edema. No palpitations. No paroxysmal nocturnal dyspnea. No orthopnea. No lightheadedness or dizziness. No syncopal episodes. Abdominal: Denies abdominal pain. No nausea, vomiting. No diarrhea. No constipation. No bloody or tarry stools. No loss of appetite. Positive jaundice Genitourinary: No dysuria, increased frequency, urgency. No urinary retention. Musculoskeletal: No myalgias. No muscle weakness, no gait dysfunction, no frequent falls. No back pain. No neck pain. Integumentary: No wounds, no lesions. No rash or pruritus. No unusual bruising. No change in hair or nails. Neurologic: No aphasia. No facial droop. No change in mentation. No head injury. No headache. No paralysis. No paresthesia. Psychiatric: No depression. No anxiety. Endocrine: No abnormal blood sugars. PHYSICAL EXAMINATION Gen: This is an 86-year-old female. She is resting in bed and appears to be comfortable and in no acute distress. Sclerae and all skin is jaundice. HEENT: Head is atraumatic, normocephalic. Pupils equal, round. Sclerae is icteric. NECK: Supple. No JVD. No lymphadenopathy. No thyromegaly. LUNGS: Clear to auscultation. No wheezes or rhonchi. No intercostal retractions. HEART: Regular rate and rhythm. No murmur. ABDOMEN: Soft. Bowel sounds are present. No masses. No tenderness. No palpable mass. EXTREMITIES: No pedal edema. No calf tenderness. NEUROLOGICAL: Patient is awake, alert and oriented to self. ASSESSMENT AND PLAN 1. Asymptomatic jaundice. GI consult appreciated, MRCP as above. Plan to transfer to tertiary care center for EUS/ERCP. 2. Chronic systolic heart failure. Continue Lasix 40 mg oral twice daily, Lopressor 75 mg twice daily. 3. COPD without exacerbation. Continue DuoNeb treatments twice daily and as needed. 4. Advanced Alzheimer's dementia. Reorient patient. 5. Hypothyroidism. Continue levothyroxine 125 g daily. 6. Chronic atrial fibrillation. Continue eliquis 5 mg twice daily, digoxin 125 g daily, Lopressor 75 mg twice daily. 7. Bipolar disorder and schizophrenia. Continue Abilify 7 mg daily. 8. Gastroesophageal reflux disease disease and GI prophylaxis. Continue Pepcid 20 mg daily. 9. COVID-19 testing negative. Patient has been hospitalized during a pandemic. Patient will be admitted to the hospital for a minimum of 2 night stay. DISCHARGE PLAN Return to [facility]. Impression and plan of care have been directed as dictated by the signing physician. Rosa Elena Damon nurse practitioner acting as scribe for signing physician. Objective - Vital Signs Vital signs: Vital Signs Temp 97.4 F L 05/17/21 07:53 Pulse 75 05/17/21 09:42 Resp 14 05/17/21 07:53 BP 102/67 05/17/21 07:53 Pulse Ox 90 L 05/17/21 07:53 Intake & Output 05/16/21 05/17/21 05/17/21 18:59 06:59 18:59 Other: Voiding Method Diaper Diaper Incontinent Incontinent # Voids 4 # Bowel Movements 1 - Labs CBC & Chem 7: 05/17/21 10:45 05/17/21 10:40 Labs: Abnormal Lab Results - Last 24 Hours (Table) 05/16/21 05/16/21 05/16/21 Range/Units 04:57 12:06 16:44 POC Glucose (mg/dL) 165 H 164 H (75-99) mg/dL CA 19-9 Antigen 50.1 H (0.0-34.9) U/mL 05/16/21 05/17/21 Range/Units 20:49 07:27 POC Glucose (mg/dL) 179 H 181 H (75-99) mg/dL CA 19-9 Antigen (0.0-34.9) U/mL
[2021-05-17 16:47] LABS: Glucose,Whole Blood 151 mg/dL (75-99)
[2021-05-17 20:50] LABS: Glucose,Whole Blood 160 mg/dL (75-99)
[2021-05-18] MEDS: DIGOXIN 125 MCG TAB PO SCH (05:17)
[2021-05-18] MEDS: LEVOTHYROXINE 125 MCG TAB PO SCH (05:17)
[2021-05-18 07:13] LABS: Glucose,Whole Blood 160 mg/dL (75-99)
[2021-05-18] MEDS: METOPROLOL TARTRATE 25 MG TAB PO SCH ×2 (07:39→21:03)
[2021-05-18] MEDS: FAMOTIDINE 20 MG TAB PO SCH (07:40)
[2021-05-18] MEDS: ARIPiprazole 2 MG TAB PO SCH (07:40)
[2021-05-18] MEDS: LORATADINE 10 MG TAB PO SCH (07:40)
[2021-05-18] MEDS: CALCIUM CARBONATE 500 MG CHEWABLE PO SCH (07:40)
[2021-05-18] MEDS: FUROSEMIDE 40 MG TAB PO SCH (07:40)
[2021-05-18] MEDS: POTASSIUM CHLORIDE ER 10 MEQ TAB.ER.PRT PO SCH (07:40)
[2021-05-18] MEDS: ARIPiprazole 5 MG TAB PO SCH (07:40)
[2021-05-18] MEDS: INSULIN ASPART (NovoLOG) 100 UNIT/ML VIAL SQ SCH ×4 (07:40→20:52)
[2021-05-18] MEDS: KETOTIFEN 0.025% OPHTH DROPS 5 ML BTL BOTH EYES SCH ×2 (07:41→21:03)
[2021-05-18] MEDS: ARTIFICIAL TEARS-HYPROMELLOSE DROPS 15 ML BTL BOTH EYES SCH ×3 (07:41→21:04)
[2021-05-18] MEDS: IPRATROPIUM-ALBUTEROL 3 ML NEB INHALATION SCH ×2 (09:24→19:55)
[2021-05-18 11:51] LABS: Glucose,Whole Blood 155 mg/dL (75-99)
[2021-05-18 12:34] LABS: African American GFR (CKD) 92.2 (60.0-200.0); Albumin/Globulin Ratio 1.36 (1.60-3.17); Anion Gap 11.7 mmol/L (10.00-18.00); BUN/Creat Ratio 17.86 Ratio (12.00-20.00); Blood Urea Nitrogen 12.5 mg/dL (9.0-27.0); Calcium 8.9 mg/dL (8.7-10.3); Carbon Dioxide 28.3 mmol/L (20.0-27.5); Globulin 2.2 g/dL (1.6-3.3); Non-African American GFR(CKD) 79.6 (60.0-200.0); Potassium 3.1 mmol/L (3.5-5.5); Total Protein 5.2 g/dL (6.2-8.2)
[2021-05-18] MEDS ORDERED: POTASSIUM CHLORIDE ER 20 MEQ TAB.ER PO STA (14:17)
--- NOTE | 2021-05-18 14:18 | P.PN ---
Subjective Progress Note Date: 05/18/21 HISTORY OF PRESENT ILLNESS This is an 86-year-old female patient of Dr. Arellano and long-term resident at [facility] with past medical history of chronic systolic heart failure, COPD, ad vanced Alzheimer's dementia, hypothyroidism, chronic atrial fibrillation on eliquis, history of thrombus in the left popliteal and femoral artery status post embolectomy, bipolar disorder, schizophrenia. Patient was noted to have abnormal labs about 5 days ago. She was then noted to have jaundice. Patient denies having any abdominal pain, no nausea or vomiting. She has history of cholecystectomy many years ago. No history of alcohol abuse. Laboratory studies revealed total bilirubin 1.6, AST 160, ALT 122, alkaline phosphatase 609, lipase 14. WBC 5.8, hemoglobin 14, platelet count 183. INR 1. CAT scan of the abdomen and pelvis which revealed cholecystectomy with mild biliary dilatation, nonspecific and may represent postsurgical change. Nonspecific mild prominence of the pancreatic head with subtle mild pancreatic ductal dilatation. No obvious pancreatic lesion. Consider nonemergent MRCP or ERCP to exclude underlying lesion. Abdominal ultrasound was poor study. Consult with GI and plan is for MRCP, lab work including CA 199, CEA, alpha-fetoprotein. Patient may need transfer to tertiary center for ERCP/EUS 05/17: Patient underwent MRI of the pancreas/MRCP with findings of confirmation of mild biliary dilation. Unusual dilated cystic duct remnant with low-lying insertion not present. Pancreas findings suspicious for product of chronic pancreatitis. Cannot exclude underlying ampullary mass or neoplasm. Consider endoscopic ultrasound and/or ERCP for further evaluation. CA 19 9 antigen 50.1, CEA 4.1, AFP less than 1.82. Hepatitis panel nonreactive. GI has recommended transfer to tertiary care center EUS/ERCP. manager marketing communication is working on transfer. Patient's granddaughter/legal guardian was updated and she wished to move forward with transfer and requested [facility] or [place]. 05/18: Patient is waiting for a bed at [facility] but do not expect anything 7. Blood pressure is on the low side with systolic in the 80s and Lopressor decreased to 25 mg twice daily, Lasix decreased to once daily. Patient is afebrile, heart rate 58, blood pressure 129/77, pulse ox 97% on 2 L nasal cannula. Repeat blood work reveals total bilirubin 16, AST 104, ALT 89, alkaline phosphatase 631. Potassium 3.1 all be replaced. Blood sugars are running between 100 5560. REVIEW OF SYSTEMS Constitutional: No fever, no chills, no night sweats. No weight change. No weakness, fatigue or lethargy. No daytime sleepiness. EENT: No headache. No blurred vision or double vision, no loss of vision. No loss of Hearing, no ringing in the ears, no dizziness. No nasal drainage or congestion. No epistaxis. No sore throat. Lungs: No shortness of breath, cough, no sputum production. No wheezing. Cardiovascular: No chest pain, no lower extremity edema. No palpitations. No paroxysmal nocturnal dyspnea. No orthopnea. No lightheadedness or dizziness. No syncopal episodes. Abdominal: Denies abdominal pain. No nausea, vomiting. No diarrhea. No constipation. No bloody or tarry stools. No loss of appetite. Positive jaundi ce Genitourinary: No dysuria, increased frequency, urgency. No urinary retention. Musculoskeletal: No myalgias. No muscle weakness, no gait dysfunction, no frequent falls. No back pain. No neck pain. Integumentary: No wounds, no lesions. No rash or pruritus. No unusual bruising. No change in hair or nails. Neurologic: No aphasia. No facial droop. No change in mentation. No head injury. No headache. No paralysis. No paresthesia. Psychiatric: No depression. No anxiety. Endocrine: No abnormal blood sugars. PHYSICAL EXAMINATION Gen: This is an 86-year-old female. She is resting in bed and appears to be comfortable and in no acute distress. Sclerae and all skin is jaundice. HEENT: Head is atraumatic, normocephalic. Pupils equal, round. Sclerae is icteric. NECK: Supple. No JVD. No lymphadenopathy. No thyromegaly. LUNGS: Clear to auscultation. No wheezes or rhonchi. No intercostal retractions. HEART: Regular rate and rhythm. No murmur. ABDOMEN: Soft. Bowel sounds are present. No masses. No tenderness. No palpable mass. EXTREMITIES: No pedal edema. No calf tenderness. NEUROLOGICAL: Patient is awake, alert and oriented to self. ASSESSMENT AND PLAN 1. Asymptomatic jaundice. GI consult appreciated, MRCP as above. Plan to transfer to tertiary care center for EUS/ERCP. 2. Chronic systolic heart failure. Continue Lasix 40 mg oral decreased frequency to daily, Lopressor decreased to 25 mg twice daily. 3. COPD without exacerbation. Continue DuoNeb treatments twice daily and as needed. 4. Advanced Alzheimer's dementia. Reorient patient. 5. Hypothyroidism. Continue levothyroxine 125 g daily. 6. Chronic atrial fibrillation. Continue eliquis 5 mg twice daily, digoxin 125 g daily, Lopressor 25 mg twice daily. 7. Bipolar disorder and schizophrenia. Continue Abilify 7 mg daily. 8. Gastroesophageal reflux disease disease and GI prophylaxis. Continue Pepcid 20 mg daily. 9. COVID-19 testing negative. Patient has been hospitalized during a pandemic. DISCHARGE PLAN Return to [facility]. Impression and plan of care have been directed as dictated by the signing physician. Rosa Elena Damon nurse practitioner acting as scribe for signing physician. Objective - Vital Signs Vital signs: Vital Signs Temp 97.7 F 05/18/21 07:38 Pulse 58 L 05/18/21 07:38 Resp 16 05/18/21 07:38 BP 129/77 05/18/21 07:38 Pulse Ox 97 05/18/21 07:38 Intake & Output 05/17/21 05/18/21 05/18/21 18:59 06:59 18:59 Intake Total 400 400 Balance 400 400 Intake: Oral 400 400 Other: Voiding Method Diaper Diaper Diaper Incontinent Incontinent Incontinent # Voids 3 4 1 # Bowel Movements 2 1 - Labs CBC & Chem 7: 05/17/21 10:45 05/18/21 06:17 Labs: Abnormal Lab Results - Last 24 Hours (Table) 05/17/21 05/17/21 05/17/21 Range/Units 10:40 11:44 16:46 Potassium 3.0 L (3.5-5.1) mmol/L Chloride 97 L (98-107) mmol/L Carbon Dioxide 36 H (22-30) mmol/L Glucose 188 H (74-99) mg/dL POC Glucose (mg/dL) 182 H 151 H (75-99) mg/dL Total Bilirubin 16.0 H* (0.2-1.3) mg/dL AST 127 H (14-36) U/L ALT 97 H (4-34) U/L Alkaline Phosphatase 617 H (38-126) U/L Albumin 3.1 L (3.5-5.0) g/dL 05/17/21 05/18/21 Range/Units 20:31 07:12 Potassium (3.5-5.1) mmol/L Chloride (98-107) mmol/L Carbon Dioxide (22-30) mmol/L Glucose (74-99) mg/dL POC Glucose (mg/dL) 160 H 160 H (75-99) mg/dL Total Bilirubin (0.2-1.3) mg/dL AST (14-36) U/L ALT (4-34) U/L Alkaline Phosphatase (38-126) U/L Albumin (3.5-5.0) g/dL
--- NOTE | 2021-05-18 15:10 | P.PN ---
Subjective Progress Note Date: 05/18/21 Principal diagnosis: Jaundice This is an 86-year-old female who presented to the emergency department from her extended care facility with painless jaundice. On admission total bilirubin was 11.6 yesterday increased to 14.9. Today is currently pending. The patient has no previous history of known pancreatic disease or pancreatitis. No known liver disease. The patient underwent MRI of the pancreas/MRCP with findings of confirmation of mild biliary dilation. Unusual dilated cystic duct remnant with low-lying insertion not present. Pancreas findings suspicious for product of chronic pancreatitis. Cannot exclude underlying ampullary mass or neoplasm. Consider endoscopic ultrasound and/or ERCP for further evaluation. CA 19 9 antigen 50.1, CEA 4.1, AFP less than 1.82. Hepatitis panel nonreactive. Today repeat total bilirubin 16.0 AST 104 ALT 89 alkaline phosphatase 631. Patient continues to deny any abdominal pain, nausea, or vomiting. Patient has a good appetite and is eating well. Plan is for transfer to [facility] where she's been accepted however awaiting a bed at this time. Objective - Vital Signs Vital signs: Vital Signs Temp 97.7 F 05/18/21 07:38 Pulse 58 L 05/18/21 07:38 Resp 16 05/18/21 07:38 BP 129/77 05/18/21 07:38 Pulse Ox 97 05/18/21 07:38 Intake & Output 05/17/21 05/18/21 05/18/21 18:59 06:59 18:59 Intake Total 400 Balance 400 Intake: Oral 400 Other: Voiding Method Diaper Diaper Incontinent Incontinent # Voids 3 4 # Bowel Movements 2 1 - Exam General appearance: The patient is alert, oriented, appears in no acute distress. Obese. HET: Head is normocephalic and atraumatic. Conjunctiva pink. Sclera deeply icteric. Neck: Supple without lymphadenopathy. Abdomen: Soft, obese, nontender, nondistended with bowel sounds. No guarding or rigidity. Extremities: Jaundice. No pedal edema Skin: No rashes, deeply jaundiced. Neurological: No focal deficits. Alert and oriented -3. - Labs CBC & Chem 7: 05/17/21 10:45 05/18/21 06:17 Labs: Abnormal Lab Results - Last 24 Hours (Table) 05/17/21 05/17/21 05/17/21 Range/Units 10:40 11:44 16:46 Potassium 3.0 L (3.5-5.1) mmol/L Chloride 97 L (98-107) mmol/L Carbon Dioxide 36 H (22-30) mmol/L Glucose 188 H (74-99) mg/dL POC Glucose (mg/dL) 182 H 151 H (75-99) mg/dL Total Bilirubin 16.0 H* (0.2-1.3) mg/dL AST 127 H (14-36) U/L ALT 97 H (4-34) U/L Alkaline Phosphatase 617 H (38-126) U/L Albumin 3.1 L (3.5-5.0) g/dL 05/17/21 05/18/21 Range/Units 20:31 07:12 Potassium (3.5-5.1) mmol/L Chloride (98-107) mmol/L Carbon Dioxide (22-30) mmol/L Glucose (74-99) mg/dL POC Glucose (mg/dL) 160 H 160 H (75-99) mg/dL Total Bilirubin (0.2-1.3) mg/dL AST (14-36) U/L ALT (4-34) U/L Alkaline Phosphatase (38-126) U/L Albumin (3.5-5.0) g/dL Assessment and Plan (1) Hyperbilirubinemia Narrative/Plan: 86-year-old female who presented to the emergency department with jaundice. Patient is living in an extended care facility and was brought in with reported jaundice over the last several days duration. Patient denies any previous histo ry of liver disease, hepatitis, or alcoholism. She denies any abdominal pain or nausea and vomiting. She does have a history of cholecystectomy several years ago. She was noted to have elevated bilirubin as well as LFTs. She had a CT of the abdomen and pelvis showing nonspecific mild prominence of pancreatic head with subtle mild pancreatic ductal dilation. No obvious pancreatic lesion seen. Consider nonemergent MRCP or ERCP. Cholecystectomy mild biliary ductal dilation which may be related to post surgical change. Total bilirubin on admission was 11.6 now 14.9, AST 155 ALT 121 of coryza phosphatase 683 lipase was 14. Acetaminophen level was 11.6 patient was negative for vital virus PCR. The possible etiologies include biliary obstruction versus malignancy. CA-19-9 ordered, hepatitis panel ordered, pancreatic MRI with MRCP ordered. Current Visit: Yes Status: Acute Code(s): E80.6 - OTHER DISORDERS OF BILIRUBIN METABOLISM SNOMED Code(s): 04651292 (2) Abnormal MRI of abdomen Narrative/Plan: MRI of pancreas/MRCP shows confirmation of mild biliary dilation. Unusual dilated cystic duct remnant with low lying insertion thought present. Pancreas findings suspicious for products of chronic pancreatitis. Cannot exclude underl dandy ampullary mass or neoplasm. Consider endoscopic ultrasound and/or ERCP evaluation to further evaluate and characterize somewhat unusual case. Current Visit: Yes Status: Acute Code(s): R93.5 - ABN FINDINGS ON DX IMAGING OF ABD REGIONS, INC RETROPERITON SNOMED Code(s): 208712841 Plan: 1. Continue symptomatic and supportive care 2. MRI pancreas/MRCP ordered and reviewed 3. Daily CMP 4. Continue low-fat diet 5. Avoid hepatotoxic medications 6. Recommend transfer to tertiary hospital for EUS/ERCP for further evaluation of possible underlying ampullary mass or neoplasm. Primary medicine team notified. 7. Case management consulted for transfer to tertiary center. He should has been accepted at [facility] awaiting bed availability Thank you for this consultation, we will continue to follow. Dr. Eric Muniz I agree with the dictator's note, documented as a scribe by Elsy Dempsey.
[2021-05-18 16:40] LABS: Glucose,Whole Blood 185 mg/dL (75-99)
[2021-05-18 20:30] LABS: Glucose,Whole Blood 125 mg/dL (75-99)
[2021-05-19] MEDS: LEVOTHYROXINE 125 MCG TAB PO SCH (05:10)
[2021-05-19] MEDS: DIGOXIN 125 MCG TAB PO SCH (05:10)
[2021-05-19 07:19] LABS: Glucose,Whole Blood 147 mg/dL (75-99)
[2021-05-19] MEDS: IPRATROPIUM-ALBUTEROL 3 ML NEB INHALATION SCH ×2 (07:27→19:10)
[2021-05-19] MEDS: METOPROLOL TARTRATE 25 MG TAB PO SCH ×2 (08:02→21:49)
[2021-05-19] MEDS: CALCIUM CARBONATE 500 MG CHEWABLE PO SCH (08:02)
[2021-05-19] MEDS: INSULIN ASPART (NovoLOG) 100 UNIT/ML VIAL SQ SCH ×4 (08:02→21:15)
[2021-05-19] MEDS: ARIPiprazole 2 MG TAB PO SCH (08:03)
[2021-05-19] MEDS: FUROSEMIDE 40 MG TAB PO SCH (08:03)
[2021-05-19] MEDS: FAMOTIDINE 20 MG TAB PO SCH (08:03)
[2021-05-19] MEDS: ARTIFICIAL TEARS-HYPROMELLOSE DROPS 15 ML BTL BOTH EYES SCH ×3 (08:03→21:50)
[2021-05-19] MEDS: POTASSIUM CHLORIDE ER 10 MEQ TAB.ER.PRT PO SCH (08:03)
[2021-05-19] MEDS: LORATADINE 10 MG TAB PO SCH (08:03)
[2021-05-19] MEDS: KETOTIFEN 0.025% OPHTH DROPS 5 ML BTL BOTH EYES SCH ×2 (08:03→21:49)
[2021-05-19] MEDS: ARIPiprazole 5 MG TAB PO SCH (08:03)
[2021-05-19 08:44] LABS: African American GFR (CKD) 68.1 (60.0-200.0); Albumin 2.9 g/dL (3.8-4.9); Albumin/Globulin Ratio 1.45 (1.60-3.17); Anion Gap 10.6 mmol/L (10.00-18.00); BUN/Creat Ratio 15.22 Ratio (12.00-20.00); Blood Urea Nitrogen 13.7 mg/dL (9.0-27.0); Calcium 9.2 mg/dL (8.7-10.3); Carbon Dioxide 29.4 mmol/L (20.0-27.5); Non-African American GFR(CKD) 58.7 (60.0-200.0); Potassium 3.6 mmol/L (3.5-5.5); Total Bilirubin 17.4 mg/dL (0.30-1.20); Total Protein 4.9 g/dL (6.2-8.2)
--- NOTE | 2021-05-19 10:34 | P.DS ---
Providers Date of admission: 05/15/21 21:47 Expected date of discharge: 05/19/21 Attending physician: Annemarie Conrad Consults: 05/15/21 21:48 Consult Physician Routine Consulting Provider: Neida Muniz Consult Reason/Comments: painless jaundice Do you want consulting provider notified?: Yes Primary care physician: [facility] Course: HISTORY OF PRESENT ILLNESS This is an 86-year-old female patient of Dr. 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 Patient was noted to have abnormal labs about 5 days ago. She was then noted to have jaundice. Patient denies having any abdominal pain, no nausea or vomiting. She has history of cholecystectomy many years ago. No history of alcohol abuse. Laboratory studies revealed total bilirubin 1.6, AST 160, ALT 122, alkaline phosphatase 609, lipase 14. WBC 5.8, hemoglobin 14, platelet count 183. INR 1. CAT scan of the abdomen and pelvis which revealed cholecystectomy with mild biliary dilatation, nonspecific and may represent postsurgical change. Nonspecific mild prominence of the pancreatic head with subtle mild pancreatic ductal dilatation. No obvious pancreatic lesion. Consider nonemergent MRCP or ERCP to exclude underlying lesion. Abdominal ultrasound was poor study. Consult with GI and plan is for MRCP, lab work including CA 199, CEA, alpha-fetoprotein. Patient may need transfer to tertiary center for ERCP/EUS 05/17: Patient underwent MRI of the pancreas/MRCP with findings of confirmation of mild biliary dilation. Unusual dilated cystic duct remnant with low-lying insertion not present. Pancreas findings suspicious for product of chronic pancreatitis. Cannot exclude underlying ampullary mass or neoplasm. Consider endoscopic ultrasound and/or ERCP for further evaluation. CA 19 9 antigen 50.1, CEA 4.1, AFP less than 1.82. Hepatitis panel nonreactive. GI has recommended transfer to tertiary care center EUS/ERCP. logistics planning manager is working on transfer. Patient's granddaughter/legal guardian was updated and she wished to move forward with transfer and requested [facility] or [place]. 05/18: Patient is waiting for a bed at [facility] but do not expect anything 7. Blood pressure is on the low side with systolic in the 80s and Lopressor decreased to 25 mg twice daily, Lasix decreased to once daily. Patient is afebrile, heart rate 58, blood pressure 129/77, pulse ox 97% on 2 L nasal cannula. Repeat blood work reveals total bilirubin 16, AST 104, ALT 89, alkaline phosphatase 631. Potassium 3.1 all be replaced. Blood sugars are running between 100 5560. REVIEW OF SYSTEMS Constitutional: No fever, no chills, no night sweats. No weight change. No weakness, fatigue or lethargy. No daytime sleepiness. EENT: No headache. No blurred vision or double vision, no loss of vision. No loss of Hearing, no ringing in the ears, no dizziness. No nasal drainage or congestion. No epistaxis. No sore throat. Lungs: No shortness of breath, cough, no sputum production. No wheezing. Cardiovascular: No chest pain, no lower extremity edema. No palpitations. No paroxysmal nocturnal dyspnea. No orthopnea. No lightheadedness or dizziness. No syncopal episodes. Abdominal: Denies abdominal pain. No nausea, vomiting. No diarrhea. No constipation. No bloody or tarry stools. No loss of appetite. Positive jaundice Genitourinary: No dysuria, increased frequency, urgency. No urinary retention. Musculoskeletal: No myalgias. No muscle weakness, no gait dysfunction, no frequent falls. No back pain. No neck pain. Integumentary: No wounds, no lesions. No rash or pruritus. No unusual bruising. No change in hair or nails. Neurologic: No aphasia. No facial droop. No change in mentation. No head injury. No headache. No paralysis. No paresthesia. Psychiatric: No depression. No anxiety. Endocrine: No abnormal blood sugars. PHYSICAL EXAMINATION Gen: This is an 86-year-old female. She is resting in bed and appears to be comfortable and in no acute distress. Sclerae and all skin is jaundice. HEENT: Head is atraumatic, normocephalic. Pupils equal, round. Sclerae is icteric. NECK: Supple. No JVD. No lymphadenopathy. No thyromegaly. LUNGS: Clear to auscultation. No wheezes or rhonchi. No intercostal retractions. HEART: Regular rate and rhythm. No murmur. ABDOMEN: Soft. Bowel sounds are present. No masses. No tenderness. No palpable mass. EXTREMITIES: No pedal edema. No calf tenderness. NEUROLOGICAL: Patient is awake, alert and oriented to self. ASSESSMENT AND PLAN 1. Asymptomatic jaundice. GI consult appreciated, MRCP as above. Plan to transfer to tertiary care center for EUS/ERCP. 2. Chronic systolic heart failure. Continue Lasix 40 mg oral decreased frequency to daily, Lopressor decreased to 25 mg twice daily. 3. COPD without exacerbation. Continue DuoNeb treatments twice daily and as needed. 4. Advanced Alzheimer's dementia. Reorient patient. 5. Hypothyroidism. Continue levothyroxine 125 g daily. 6. Chronic atrial fibrillation. Continue eliquis 5 mg twice daily, digoxin 125 g daily, Lopressor 25 mg twice daily. 7. Bipolar disorder and schizophrenia. Continue Abilify 7 mg daily. 8. Gastroesophageal reflux disease disease and GI prophylaxis. Continue Pepcid 20 mg daily. 9. COVID-19 testing negative. Patient has been hospitalized during a pandemic. DISCHARGE PLAN Return to [facility]. Impression and plan of care have been directed as dictated by the signing physician. Rosa Elena Daomn nurse practitioner acting as scribe for signing physician. Patient Condition at Discharge: Fair Plan - Discharge Summary Discharge Rx Participant: No New Discharge Prescriptions: New Metoprolol Tartrate [Lopressor] 25 mg PO BID tab Continue Acetaminophen Tab [Tylenol] 500 mg PO BID PRN PRN Reason: Pain Na Phos,M-B/Na Phos,Di-Ba [Fleet Adult] 133 ml RECTAL DAILY PRN PRN Reason: Constipation Magnesium Hydroxide [Milk of Magnesia Concentrate] 7,200 mg PO Q48H PRN PRN Reason: Constipation bisacodyL [Dulcolax] 10 mg RECTAL DAILY PRN PRN Reason: Constipation Olopatadine HCl [Patanol 0.1%] 1 drop BOTH EYES BID@0800,1700 Artificial Tears-Hypromellose [Artificial Tear Drops] 1 drop BOTH EYES TID@0800,1200,1700 Oyster Shell Calcium 500mg 500 mg PO DAILY@0800 Furosemide [Lasix] 40 mg PO BID@0800,1700 Potassium Chloride [Potassium Chloride ER] 10 meq PO DAILY@0800 Loratadine 10 mg PO DAILY@0800 Levothyroxine Sodium 125 mcg PO DAILY@0800 Ergocalciferol (Vitamin D2) [Drisdol (50,000 Iu)] 50,000 unit PO Q14D@1700 ARIPiprazole [Abilify] 5 mg PO DAILY@0800 ARIPiprazole [Abilify] 2 mg PO DAILY@0800 Digoxin [Lanoxin] 125 mcg PO DAILY@0600 Ensure Clear 237 ml PO TID@0800,1200,1700 Ipratropium-Albuterol Nebulize [Duoneb 0.5 mg-3 mg/3 ml Soln] 3 ml INHALATION RT-BID@0800,1700 Ipratropium-Albuterol Nebulize [Duoneb 0.5 mg-3 mg/3 ml Soln] 3 ml INHALATION RT-QID PRN PRN Reason: Cough/Congestion Famotidine [Pepcid] 20 mg PO DAILY@0800 Changed Apixaban [Eliquis] 5 mg PO BID@0800,1700 #60 tab Discontinued Metoprolol Tartrate [Lopressor] 75 mg PO BID@0800,1700 tab Discharge Medication List ARIPiprazole [Abilify] 2 mg PO DAILY@0800 07/25/19 [History] ARIPiprazole [Abilify] 5 mg PO DAILY@0800 07/25/19 [History] Acetaminophen Tab [Tylenol] 500 mg PO BID PRN 07/25/19 [History] Artificial Tears-Hypromellose [Artificial Tear Drops] 1 drop BOTH EYES TID@0800,1200,1700 07/25/19 [History] Ergocalciferol (Vitamin D2) [Drisdol (50,000 Iu)] 50,000 unit PO Q14D@1700 07/25/19 [History] Furosemide [Lasix] 40 mg PO BID@0800,1700 07/25/19 [History] Levothyroxine Sodium 125 mcg PO DAILY@0800 07/25/19 [History] Loratadine 10 mg PO DAILY@0800 07/25/19 [History] Magnesium Hydroxide [Milk of Magnesia Concentrate] 7,200 mg PO Q48H PRN 07/25/19 [History] Na Phos,M-B/Na Phos,Di-Ba [Fleet Adult] 133 ml RECTAL DAILY PRN 07/25/19 [History] Olopatadine HCl [Patanol 0.1%] 1 drop BOTH EYES BID@0800,1700 07/25/19 [History] Oyster Shell Calcium 500mg 500 mg PO DAILY@0800 07/25/19 [History] Potassium Chloride [Potassium Chloride ER] 10 meq PO DAILY@0800 07/25/19 [History] bisacodyL [Dulcolax] 10 mg RECTAL DAILY PRN 07/25/19 [History] Digoxin [Lanoxin] 125 mcg PO DAILY@0600 05/15/21 [History] Ensure Clear 237 ml PO TID@0800,1200,1700 05/15/21 [History] Famotidine [Pepcid] 20 mg PO DAILY@0800 05/15/21 [History] Ipratropium-Albuterol Nebulize [Duoneb 0.5 mg-3 mg/3 ml Soln] 3 ml INHALATION RT-BID@0800,1700 05/15/21 [History] Ipratropium-Albuterol Nebulize [Duoneb 0.5 mg-3 mg/3 ml Soln] 3 ml INHALATION RT-QID PRN 05/15/21 [History] Apixaban [Eliquis] 5 mg PO BID@0800,1700 #60 tab 05/19/21 [Rx] Metoprolol Tartrate [Lopressor] 25 mg PO BID tab 05/19/21 [Rx] Follow up Appointment(s)/Referral(s): Miky Arellano MD [Primary Care Provider] - 1 Week ([address] [facility]) Discharge Disposition: TRANSFER TO SNF[facility], [facility]
[2021-05-19 12:10] LABS: Glucose,Whole Blood 149 mg/dL (75-99)
--- NOTE | 2021-05-19 13:47 | P.PN ---
Subjective Progress Note Date: 05/19/21 HISTORY OF PRESENT ILLNESS This is an 86-year-old female patient of Dr. Arellano and long-term resident at [facility] with past medical history of chronic systolic heart failure, COPD, ad vanced Alzheimer's dementia, hypothyroidism, chronic atrial fibrillation on eliquis, history of thrombus in the left popliteal and femoral artery status post embolectomy, bipolar disorder, schizophrenia. Patient was noted to have abnormal labs about 5 days ago. She was then noted to have jaundice. Patient denies having any abdominal pain, no nausea or vomiting. She has history of cholecystectomy many years ago. No history of alcohol abuse. Laboratory studies revealed total bilirubin 1.6, AST 160, ALT 122, alkaline phosphatase 609, lipase 14. WBC 5.8, hemoglobin 14, platelet count 183. INR 1. CAT scan of the abdomen and pelvis which revealed cholecystectomy with mild biliary dilatation, nonspecific and may represent postsurgical change. Nonspecific mild prominence of the pancreatic head with subtle mild pancreatic ductal dilatation. No obvious pancreatic lesion. Consider nonemergent MRCP or ERCP to exclude underlying lesion. Abdominal ultrasound was poor study. Consult with GI and plan is for MRCP, lab work including CA 199, CEA, alpha-fetoprotein. Patient may need transfer to tertiary center for ERCP/EUS 05/17: Patient underwent MRI of the pancreas/MRCP with findings of confirmation of mild biliary dilation. Unusual dilated cystic duct remnant with low-lying insertion not present. Pancreas findings suspicious for product of chronic pancreatitis. Cannot exclude underlying ampullary mass or neoplasm. Consider endoscopic ultrasound and/or ERCP for further evaluation. CA 19 9 antigen 50.1, CEA 4.1, AFP less than 1.82. Hepatitis panel nonreactive. GI has recommended transfer to tertiary care center EUS/ERCP. advertising production manager is working on transfer. Patient's granddaughter/legal guardian was updated and she wished to move forward with transfer and requested [facility] or [facility]. 05/18: Patient is waiting for a bed at [facility] but do not expect anything 7. Blood pressure is on the low side with systolic in the 80s and Lopressor decreased to 25 mg twice daily, Lasix decreased to once daily. Patient is afebrile, heart rate 58, blood pressure 129/77, pulse ox 97% on 2 L nasal cannula. Repeat blood work reveals total bilirubin 16, AST 104, ALT 89, alkaline phosphatase 631. Potassium 3.1 all be replaced. Blood sugars are running between 100 5560. 05/19: Patient continues to deny having any abdominal pain, no nausea or vomiting. Bilirubin continues to worsen today at 17.4. AST is 106, ALT 80, phosphatase 201. Capillary blood glucose running between 125 an 185. GI has made arrangements with Dr. Laird with anticipated transfer to [facility] tomorrow and plan for procedure on Saturday. Patient will then be discharged back to [facility] from [facility]. REVIEW OF SYSTEMS Constitutional: No fever, no chills, no night sweats. No weight change. No weakness, fatigue or lethargy. No daytime sleepiness. EENT: No headache. No blurred vision or double vision, no loss of vision. No loss of Hearing, no ringing in the ears, no dizziness. No nasal drainage or congestion. No epistaxis. No sore throat. Lungs: No shortness of breath, cough, no sputum production. No wheezing. Cardiovascular: No chest pain, no lower extremity edema. No palpitations. No paroxysmal nocturnal dyspnea. No orthopnea. No lightheadedness or dizziness. No syncopal episodes. Abdominal: Denies abdominal pain. No nausea, no vomiting. No diarrhea. No constipation. No bloody or tarry stools. No loss of appetite. Positive jaundice Genitourinary: No dysuria, increased frequency, urgency. No urinary retention. Musculoskeletal: No myalgias. No muscle weakness, no gait dysfunction, no frequent falls. No back pain. No neck pain. Integumentary: No wounds, no lesions. No rash or pruritus. No unusual bruising. No change in hair or nails. Neurologic: No aphasia. No facial droop. No change in mentation. No head injury. No headache. No paralysis. No paresthesia. Psychiatric: No depression. No anxiety. Endocrine: No abnormal blood sugars. PHYSICAL EXAMINATION Gen: This is an 86-year-old female. She is resting in bed and appears to be comfortable and in no acute distress. Sclerae and skin are jaundice. HEENT: Head is atraumatic, normocephalic. Pupils equal, round. Sclerae is icteric. NECK: Supple. No JVD. No lymphadenopathy. No thyromegaly. LUNGS: Clear to auscultation. No wheezes or rhonchi. No intercostal retractions. HEART: Regular rate and rhythm. No murmur. ABDOMEN: Soft. Bowel sounds are present. No masses. No tenderness. No palpable mass. EXTREMITIES: No pedal edema. No calf tenderness. NEUROLOGICAL: Patient is awake, alert and oriented to self. ASSESSMENT AND PLAN 1. Asymptomatic jaundice. GI consult appreciated, MRCP as above. Plan to transfer to [facility] ([facility]) for EUS/ERCP on Saturday. 2. Chronic systolic heart failure. Continue Lasix 40 mg oral daily, Lopressor 25 mg twice daily. 3. COPD without exacerbation. Continue DuoNeb treatments twice daily and as needed. 4. Advanced Alzheimer's dementia. Reorient patient. 5. Hypothyroidism. Continue levothyroxine 125 g daily. 6. Chronic atrial fibrillation. Continue eliquis 5 mg twice daily-held, digoxin 125 g daily, Lopressor 25 mg twice daily. 7. Bipolar disorder and schizophrenia. Continue Abilify 7 mg daily. 8. Gastroesophageal reflux disease disease and GI prophylaxis. Continue Pepcid 20 mg daily. 9. COVID-19 testing negative. Patient has been hospitalized during a pandemic. DISCHARGE PLAN Return to [facility] after treatment at [facility]. Impression and plan of care have been directed as dictated by the signing physician. Rosa Elena Damon nurse practitioner acting as scribe for signing physician. Objective - Vital Signs Vital signs: Vital Signs Temp 97.5 F L 05/19/21 07:16 Pulse 57 L 05/19/21 07:16 Resp 17 05/19/21 07:16 BP 115/74 05/19/21 07:16 Pulse Ox 100 05/19/21 07:16 Intake & Output 05/18/21 05/19/21 05/19/21 18:59 06:59 18:59 Intake Total 918 236 Balance 918 236 Intake: Oral 918 236 Other: Voiding Method Diaper Diaper Incontinent Incontinent # Voids 1 1 - Labs CBC & Chem 7: 05/17/21 10:45 05/19/21 06:16 Labs: Abnormal Lab Results - Last 24 Hours (Table) 05/18/21 05/18/21 05/19/21 Range/Units 16:39 20:28 06:16 Carbon Dioxide 29.4 H (20.0-27.5) mmol/L Est GFR (CKD-EPI)NonAf 58.7 L (60.0-200.0) Glucose 163 H (70-110) mg/dL POC Glucose (mg/dL) 185 H 125 H (75-99) mg/dL Total Bilirubin 17.40 H* (0.30-1.20) mg/dL AST 106 H (13-35) U/L ALT 80 H (8-44) U/L Alkaline Phosphatase 601 H (41-126) U/L Total Protein 4.9 L (6.2-8.2) g/dL Albumin 2.9 L (3.8-4.9) g/dL Albumin/Globulin Ratio 1.45 L (1.60-3.17) g/dL 05/19/21 05/19/21 Range/Units 07:14 12:05 Carbon Dioxide (20.0-27.5) mmol/L Est GFR (CKD-EPI)NonAf (60.0-200.0) Glucose (70-110) mg/dL POC Glucose (mg/dL) 147 H 149 H (75-99) mg/dL Total Bilirubin (0.30-1.20) mg/dL AST (13-35) U/L ALT (8-44) U/L Alkaline Phosphatase (41-126) U/L Total Protein (6.2-8.2) g/dL Albumin (3.8-4.9) g/dL Albumin/Globulin Ratio (1.60-3.17) g/dL
--- NOTE | 2021-05-19 13:57 | P.TRANS ---
Providers Date of admission: 05/15/21 21:47 Expected date of discharge: 05/20/21 Attending physician: Annemarie Conrad Consults: 05/15/21 21:48 Consult Physician Routine Consulting Provider: Neida Muniz Consult Reason/Comments: painless jaundice Do you want consulting provider notified?: Yes Primary care physician: [facility] Course: HISTORY OF PRESENT ILLNESS This is an 86-year-old female patient of Dr. 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 Patient was noted to have abnormal labs about 5 days ago. She was then noted to have jaundice. Patient denies having any abdominal pain, no nausea or vomiting. She has history of cholecystectomy many years ago. No history of alcohol abuse. Laboratory studies revealed total bilirubin 1.6, AST 160, ALT 122, alkaline phosphatase 609, lipase 14. WBC 5.8, hemoglobin 14, platelet count 183. INR 1. CAT scan of the abdomen and pelvis which revealed cholecystectomy with mild biliary dilatation, nonspecific and may represent postsurgical change. Nonspecific mild prominence of the pancreatic head with subtle mild pancreatic ductal dilatation. No obvious pancreatic lesion. Consider nonemergent MRCP or ERCP to exclude underlying lesion. Abdominal ultrasound was poor study. Consult with GI and plan is for MRCP, lab work including CA 199, CEA, alpha-fetoprotein. Patient may need transfer to tertiary center for ERCP/EUS 05/17: Patient underwent MRI of the pancreas/MRCP with findings of confirmation of mild biliary dilation. Unusual dilated cystic duct remnant with low-lying insertion not present. Pancreas findings suspicious for product of chronic pancreatitis. Cannot exclude underlying ampullary mass or neoplasm. Consider endoscopic ultrasound and/or ERCP for further evaluation. CA 19 9 antigen 50.1, CEA 4.1, AFP less than 1.82. Hepatitis panel nonreactive. GI has recommended transfer to tertiary care center EUS/ERCP. project development manager is working on transfer. Patient's granddaughter/legal guardian was updated and she wished to move forward with transfer and requested [facility] or [facility]. 05/18: Patient is waiting for a bed at [facility] but do not expect anything 7. Blood pressure is on the low side with systolic in the 80s and Lopressor decreased to 25 mg twice daily, Lasix decreased to once daily. P rl is afebrile, heart rate 58, blood pressure 129/77, pulse ox 97% on 2 L nasal cannula. Repeat blood work reveals total bilirubin 16, AST 104, ALT 89, alkaline phosphatase 631. Potassium 3.1 all be replaced. Blood sugars are running between 100 5560. 05/19: Patient continues to deny having any abdominal pain, no nausea or vomiting. Bilirubin continues to worsen today at 17.4. AST is 106, ALT 80, phosphatase 201. Capillary blood glucose running between 125 an 185. GI has made arrangements with Dr. Laird with anticipated transfer to [facility] tomorrow and plan for procedure on Saturday. Patient will then be discharged back to [facility] from [facility]. REVIEW OF SYSTEMS Constitutional: No fever, no chills, no night sweats. No weight change. No weakness, fatigue or lethargy. No daytime sleepiness. EENT: No headache. No blurred vision or double vision, no loss of vision. No loss of Hearing, no ringing in the ears, no dizziness. No nasal drainage or congestion. No epistaxis. No sore throat. Lungs: No shortness of breath, cough, no sputum production. No wheezing. Cardiovascular: No chest pain, no lower extremity edema. No palpitations. No paroxysmal nocturnal dyspnea. No orthopnea. No lightheadedness or dizziness. No syncopal episodes. Abdominal: Denies abdominal pain. No nausea, vomiting. No diarrhea. No consti pation. No bloody or tarry stools. No loss of appetite. Positive jaundice Genitourinary: No dysuria, increased frequency, urgency. No urinary retention. Musculoskeletal: No myalgias. No muscle weakness, no gait dysfunction, no frequent falls. No back pain. No neck pain. Integumentary: No wounds, no lesions. No rash or pruritus. No unusual bruising. No change in hair or nails. Neurologic: No aphasia. No facial droop. No change in mentation. No head injury. No headache. No paralysis. No paresthesia. Psychiatric: No depression. No anxiety. No mood swings. Endocrine: No abnormal blood sugars. No weight change. No excessive sweating or thirst. No cold intolerance. PHYSICAL EXAMINATION Gen: This is an 86-year-old female. She is resting in bed and appears to be comfortable and in no acute distress. Sclerae and all skin is jaundice. HEENT: Head is atraumatic, normocephalic. Pupils equal, round. Sclerae is icteric. NECK: Supple. No JVD. No lymphadenopathy. No thyromegaly. LUNGS: Clear to auscultation. No wheezes or rhonchi. No intercostal retractions. HEART: Regular rate and rhythm. No murmur. ABDOMEN: Soft. Bowel sounds are present. No masses. No tenderness. No palpable mass. EXTREMITIES: No pedal edema. No calf tenderness. NEUROLOGICAL: Patient is awake, alert and oriented to self. ASSESSMENT AND PLAN 1. Asymptomatic jaundice. GI consult appreciated, MRCP as above. Plan to transfer to [facility] ([facility]) for EUS/ERCP on Saturday. 2. Chronic systolic heart failure. Continue Lasix 40 mg oral twice daily, Lopressor 25 mg twice daily. 3. COPD without exacerbation. Continue DuoNeb treatments twice daily and as needed. 4. Advanced Alzheimer's dementia. Reorient patient. 5. Hypothyroidism. Continue levothyroxine 125 g daily. 6. Chronic atrial fibrillation. Continue eliquis 5 mg twice daily, digoxin 125 g daily, Lopressor 25 mg twice daily. 7. Bipolar disorder and schizophrenia. Continue Abilify 7 mg daily. 8. Gastroesophageal reflux disease disease and GI prophylaxis. Continue Pepcid 20 mg daily. 9. COVID-19 testing negative. Patient has been hospitalized during a pandemic. DISCHARGE PLAN Return to [facility]. Impression and plan of care have been directed as dictated by the signing physician. Rosa Elena Damon nurse practitioner acting as scribe for signing physician. Patient Condition at Discharge: Stable Plan - Transfer Summary Transfer Medications: Active Medications Generic Name Dose Route Start Last Admin Trade Name Freq PRN Reason Stop Dose Admin Acetaminophen 500 mg 05/15/21 21:50 Acetaminophen Tab 500 Mg Tab PO BID PRN Pain Albuterol/Ipratropium 3 ml 05/16/21 08:00 05/17/21 09:31 Ipratropium-Albuterol 3 Ml Neb INHALATION 3 ml RT-BID MIKE Administration Albuterol/Ipratropium 3 ml 05/15/21 21:50 Ipratropium-Albuterol 3 Ml Neb INHALATION RT-QID PRN Cough/Congestion Apixaban 5 mg 05/15/21 22:00 05/17/21 08:18 Apixaban 5 Mg Tab PO Not Given BID FOR[facility], [facility]1983 Protocol Aripiprazole 2 mg 05/16/21 09:00 05/17/21 08:19 Aripiprazole 2 Mg Tab PO 2 mg DAILY MIKE Administration Aripiprazole 5 mg 05/16/21 09:00 05/17/21 08:19 Aripiprazole 5 Mg Tab PO 5 mg DAILY MIKE Administration Artificial Tears 1 drops 05/16/21 09:00 05/17/21 08:19 Artificial Tears-Hypromellose Drops 15 Ml Btl BOTH EYES 1 drops TID FOR[facility], [facility]1983 Administration Bisacodyl 10 mg 05/15/21 21:50 Bisacodyl 10 Mg Supp RECTAL DAILY PRN Constipation Calcium Carbonate/Glycine 500 mg 05/16/21 09:00 05/17/21 08:19 Calcium Carbonate 500 Mg Chewable PO 500 mg DAILY [facility], [facility]1983 Administration Digoxin 125 mcg 05/16/21 06:00 05/17/21 05:48 Digoxin 125 Mcg Tab PO 125 mcg DAILY@0600 FOR[facility], [facility]1983 Administration Ergocalciferol 1,250 mcg 05/29/21 17:00 Ergocalciferol 1,250 Mcg (50,000 Iu) Capsule PO Q14D@1700 [facility], [facility]1983 Famotidine 20 mg 05/16/21 09:00 05/17/21 08:19 Famotidine 20 Mg Tab PO 20 mg DAILY [facility] Administration Furosemide 40 mg 05/16/21 09:00 05/17/21 08:20 Furosemide 40 Mg Tab PO 40 mg BID@0900,1600 [facility]1983 Administration Insulin Aspart 0 unit 05/16/21 07:30 05/17/21 08:17 Insulin Aspart (Novolog) 100 Unit/Ml Vial SQ 2 unit ACHS [facility]1983 Administration Protocol Ketotifen Fumarate 1 drops 05/16/21 09:00 05/17/21 08:20 Ketotifen 0.025% Ophth Drops 5 Ml Btl BOTH EYES 1 drops BID [facility] Administration Levothyroxine Sodium 125 mcg 05/16/21 06:30 05/17/21 05:48 Levothyroxine 125 Mcg Tab PO 125 mcg DAILY@0630 [facility] Administration Loratadine 10 mg 05/16/21 09:00 05/17/21 08:20 Loratadine 10 Mg Tab PO 10 mg DAILY MIKE Administration Magnesium Hydroxide 7,200 mg 05/15/21 21:50 Magnesium Hydroxide 2,400 Mg/10 Ml Cup PO Q48H PRN Constipation Metoprolol Tartrate 75 mg 05/16/21 09:00 05/17/21 08:20 Metoprolol Tartrate 25 Mg Tab PO 75 mg BID MIKE Administration Naloxone HCl 0.2 mg 05/15/21 21:47 Naloxone 0.4 Mg/Ml 1 Ml Vial IV Q2M PRN Opioid Reversal Ondansetron HCl 4 mg 05/15/21 21:47 Ondansetron 4 Mg/2 Ml Vial IVP Q8HR PRN Nausea And Vomiting Potassium Chloride 10 meq 05/16/21 09:00 05/17/21 08:20 Potassium Chloride Er 10 Meq Tab.Er.Prt PO 10 meq DAILY MIKE Administration Sodium Biphosphate/Sodium Phosphate 133 ml 05/15/21 21:50 Na Phos,M-B/Na Phos,Di-Ba 133 Ml Enema RECTAL DAILY PRN Constipation Follow up Appointment(s)/Referral(s): Miky Arellano MD [Primary Care Provider] - 1 Week (AT [facility]) Discharge Disposition: TRANSFER TO SNF/ECF - Out of Hospital Transfer - Req. Specs Out of Hospital Transfer - Requested Specifics: Other Non-Acute
--- NOTE | 2021-05-19 14:45 | P.PN ---
Subjective Progress Note Date: 05/19/21 Principal diagnosis: Jaundice This is an 86-year-old female who presented to the emergency department from her extended care facility with painless jaundice. On admission total bilirubin was 11.6 yesterday increased to 14.9. Today is currently pending. The patient has no previous history of known pancreatic disease or pancreatitis. No known liver disease. The patient underwent MRI of the pancreas/MRCP with findings of confirmation of mild biliary dilation. Unusual dilated cystic duct remnant with low-lying insertion not present. Pancreas findings suspicious for product of chronic pancreatitis. Cannot exclude underlying ampullary mass or neoplasm. Consider endoscopic ultrasound and/or ERCP for further evaluation. CA 19 9 antigen 50.1, CEA 4.1, AFP less than 1.82. Hepatitis panel nonreactive. Patient continues to state she has no abdominal pain, nausea, or vomiting. Total bilirubin continues to trend up. Today total bilirubin 17.4 AST 106 ALT 80 alkaline phosphatase 601. Patient is still awaiting bed availability at [facility]. Objective - Vital Signs Vital signs: Vital Signs Temp 97.3 F L 05/19/21 01:49 Pulse 67 05/19/21 01:49 Resp 15 05/19/21 01:49 BP 122/76 05/19/21 01:49 Pulse Ox 99 05/19/21 01:49 Intake & Output 05/18/21 05/19/21 05/19/21 18:59 06:59 18:59 Intake Total 918 Balance 918 Intake: Oral 918 Other: Voiding Method Diaper Diaper Incontinent Incontinent # Voids 1 1 - Exam General appearance: The patient is alert, oriented, appears in no acute distress. Obese. HET: Head is normocephalic and atraumatic. Conjunctiva pink. Sclera deeply icteric. Neck: Supple without lymphadenopathy. Abdomen: Soft, obese, nontender, nondistended with bowel sounds. No guarding or rigidity. Extremities: Jaundice. No pedal edema Skin: No rashes, deeply jaundiced. Neurological: No focal deficits. Alert and oriented -3. - Labs CBC & Chem 7: 05/17/21 10:45 05/19/21 06:16 Labs: Abnormal Lab Results - Last 24 Hours (Table) 05/18/21 05/18/21 05/18/21 Range/Units 06:17 11:50 16:39 Potassium 3.1 L (3.5-5.5) mmol/L Carbon Dioxide 28.3 H (20.0-27.5) mmol/L Est GFR (CKD-EPI)NonAf (60.0-200.0) Glucose 181 H (70-110) mg/dL POC Glucose (mg/dL) 155 H 185 H (75-99) mg/dL Total Bilirubin 16.00 H* (0.30-1.20) mg/dL AST 104 H (13-35) U/L ALT 89 H (8-44) U/L Alkaline Phosphatase 631 H (41-126) U/L Total Protein 5.2 L (6.2-8.2) g/dL Albumin 3.0 L (3.8-4.9) g/dL Albumin/Globulin Ratio 1.36 L (1.60-3.17) g/dL 05/18/21 05/19/21 05/19/21 Range/Units 20:28 06:16 07:14 Potassium (3.5-5.5) mmol/L Carbon Dioxide 29.4 H (20.0-27.5) mmol/L Est GFR (CKD-EPI)NonAf 58.7 L (60.0-200.0) Glucose 163 H (70-110) mg/dL POC Glucose (mg/dL) 125 H 147 H (75-99) mg/dL Total Bilirubin 17.40 H* (0.30-1.20) mg/dL AST 106 H (13-35) U/L ALT 80 H (8-44) U/L Alkaline Phosphatase 601 H (41-126) U/L Total Protein 4.9 L (6.2-8.2) g/dL Albumin 2.9 L (3.8-4.9) g/dL Albumin/Globulin Ratio 1.45 L (1.60-3.17) g/dL Assessment and Plan (1) Hyperbilirubinemia Narrative/Plan: 86-year-old female who presented to the emergency department with jaundice. Patient is living in an extended care facility and was brought in with reported jaundice over the last several days duration. Patient denies any previous history of liver disease, hepatitis, or alcoholism. She denies any abdominal pain or nausea and vomiting. She does have a history of cholecystectomy several years ago. She was noted to have elevated bilirubin as well as LFTs. She had a CT of the abdomen and pelvis showing nonspecific mild prominence of pancreatic head with subtle mild pancreatic ductal dilation. No obvious pancreatic lesion seen. Consider nonemergent MRCP or ERCP. Cholecystectomy mild biliary ductal dilation which may be related to post surgical change. Total bilirubin on admission was 11.6 now 14.9, AST 155 ALT 121 of coryza phosphatase 683 lipase was 14. Acetaminophen level was 11.6 patient was negative for vital virus PCR. The possible etiologies include biliary obstruction versus malignancy. CA-19-9 ordered, hepatitis panel ordered, pancreatic MRI with MRCP ordered. The patient is awaiting transfer to [facility]. At this time they is no bed availability. Dr. Muniz discussed this patient's case with Dr. Laird. Dr. Lr will recommend patient remain in the hospital until a bed becomes available and continue to hold eliquis. Dr. Laird is trying to arrange tra nsfer for EUS/ERCP. Current Visit: Yes Status: Acute Code(s): E80.6 - OTHER DISORDERS OF BILIRUBIN METABOLISM SNOMED Code(s): 88187099 (2) Abnormal MRI of abdomen Narrative/Plan: MRI of pancreas/MRCP shows confirmation of mild biliary dilation. Unusual dilated cystic duct remnant with low lying insertion thought present. Pancreas findings suspicious for products of chronic pancreatitis. Cannot exclude underlying ampullary mass or neoplasm. Consider endoscopic ultrasound and/or ERCP evaluation to further evaluate and characterize somewhat unusual case. Current Visit: Yes Status: Acute Code(s): R93.5 - ABN FINDINGS ON DX IMAGING OF ABD REGIONS, INC RETROPERITON SNOMED Code(s): 873497518 Plan: 1. Continue symptomatic and supportive care 2. MRI pancreas/MRCP ordered and reviewed 3. Daily CMP 4. Continue low-fat diet 5. Avoid hepatotoxic medications 6. Recommend transfer to tertiary hospital for EUS/ERCP for further evaluation of possible underlying ampullary mass or neoplasm. 7. Case management consulted for transfer to tertiary center. Singh accepted for transfer to [facility]. Awaiting bed availability. 8. Hold eliquis Thank you for this consultation, we will sign off at this time as there will be no gastroenterology availability in the hospital this weekend.. Dr. Eric Muniz I agree with the dictator's note, documented as a scribe by Elsy Dempsey.
[2021-05-19 17:08] LABS: Glucose,Whole Blood 205 mg/dL (75-99)
[2021-05-19 21:10] LABS: Glucose,Whole Blood 119 mg/dL (75-99)
[2021-05-20] MEDS: DIGOXIN 125 MCG TAB PO SCH (06:06)
[2021-05-20] MEDS: LEVOTHYROXINE 125 MCG TAB PO SCH (06:06)
[2021-05-20 07:08] LABS: Glucose,Whole Blood 144 mg/dL (75-99)
[2021-05-20] MEDS: INSULIN ASPART (NovoLOG) 100 UNIT/ML VIAL SQ SCH ×2 (07:39→11:48)
[2021-05-20] MEDS: CALCIUM CARBONATE 500 MG CHEWABLE PO SCH (08:33)
[2021-05-20] MEDS: ARIPiprazole 2 MG TAB PO SCH (08:34)
[2021-05-20] MEDS: ARTIFICIAL TEARS-HYPROMELLOSE DROPS 15 ML BTL BOTH EYES SCH ×2 (08:34→15:45)
[2021-05-20] MEDS: POTASSIUM CHLORIDE ER 10 MEQ TAB.ER.PRT PO SCH (08:34)
[2021-05-20] MEDS: FAMOTIDINE 20 MG TAB PO SCH (08:34)
[2021-05-20] MEDS: LORATADINE 10 MG TAB PO SCH (08:34)
[2021-05-20] MEDS: ARIPiprazole 5 MG TAB PO SCH (08:34)
[2021-05-20] MEDS: METOPROLOL TARTRATE 25 MG TAB PO SCH (08:34)
[2021-05-20] MEDS: FUROSEMIDE 40 MG TAB PO SCH (08:34)
[2021-05-20] MEDS: KETOTIFEN 0.025% OPHTH DROPS 5 ML BTL BOTH EYES SCH (08:35)
[2021-05-20] MEDS: IPRATROPIUM-ALBUTEROL 3 ML NEB INHALATION SCH (09:12)
[2021-05-20 11:29] LABS: Glucose,Whole Blood 147 mg/dL (75-99)
--- NOTE | 2021-05-20 12:11 | P.PN ---
Subjective Progress Note Date: 05/20/21 HISTORY OF PRESENT ILLNESS This is an 86-year-old female patient of Dr. 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 Patient was noted to have abnormal labs about 5 days ago. She was then noted to have jaundice. Patient denies having any abdominal pain, no nausea or vomiting. She has history of cholecystectomy many years ago. No history of alcohol abuse. Laboratory studies revealed total bilirubin 1.6, AST 160, ALT 122, alkaline phosphatase 609, lipase 14. WBC 5.8, hemoglobin 14, platelet count 183. INR 1. CAT scan of the abdomen and pelvis which revealed cholecystectomy with mild biliary dilatation, nonspecific and may represent postsurgical change. Nonspecific mild prominence of the pancreatic head with subtle mild pancreatic ductal dilatation. No obvious pancreatic lesion. Consider nonemergent MRCP or ERCP to exclude underlying lesion. Abdominal ultrasound was poor study. Consult with GI and plan is for MRCP, lab work including CA 199, CEA, alpha-fetoprotein. Patient may need transfer to tertiary center for ERCP/EUS 05/17: Patient underwent MRI of the pancreas/MRCP with findings of confirmation of mild biliary dilation. Unusual dilated cystic duct remnant with low-lying insertion not present. Pancreas findings suspicious for product of chronic pancreatitis. Cannot exclude underlying ampullary mass or neoplasm. Consider endoscopic ultrasound and/or ERCP for further evaluation. CA 19 9 antigen 50.1, CEA 4.1, AFP less than 1.82. Hepatitis panel nonreactive. GI has recommended transfer to tertiary care center EUS/ERCP. software test manager is working on transfer. Patient's granddaughter/legal guardian was updated and she wished to move forward with transfer and requested [facility] or [facility]. 05/18: Patient is waiting for a bed at [facility] but do not expect anything 7. Blood pressure is on the low side with systolic in the 80s and Lopressor decreased to 25 mg twice daily, Lasix decreased to once daily. Patient is afebrile, heart rate 58, blood pressure 129/77, pulse ox 97% on 2 L nasal cannula. Repeat blood work reveals total bilirubin 16, AST 104, ALT 89, alkaline phosphatase 631. Potassium 3.1 all be replaced. Blood sugars are running between 100 5560. 05/19: Patient continues to deny having any abdominal pain, no nausea or vomiting. Bilirubin continues to worsen today at 17.4. AST is 106, ALT 80, phosphatase 201. Capillary blood glucose running between 125 an 185. GI has made arrangements with Dr. Laird with anticipated transfer to [facility] tomorrow and plan for procedure on Saturday. Patient will then be discharged back to [facility] from [facility]. 15 patient is still at bedside, no new complaints, has been eating without difficulties, remains to be jaundice, no aspiration, no falls, no chills no feve r, vitals are stable, awaiting transfer to [facility] today, with plans for endoscopic ultrasound and ERCP on Saturday as planned REVIEW OF SYSTEMS Constitutional: No fever, no chills, no night sweats. No weight change. No weakness, fatigue or lethargy. No daytime sleepiness. EENT: No headache. No blurred vision or double vision, no loss of vision. No loss of Hearing, no ringing in the ears, no dizziness. No nasal drainage or congestion. No epistaxis. No sore throat. Lungs: No shortness of breath, cough, no sputum production. No wheezing. Cardiovascular: No chest pain, no lower extremity edema. No palpitations. No paroxysmal nocturnal dyspnea. No orthopnea. No lightheadedness or dizziness. No syncopal episodes. Abdominal: Denies abdominal pain. No nausea, vomiting. No diarrhea. No constipation. No bloody or tarry stools. No loss of appetite. Positive jaundice Genitourinary: No dysuria, increased frequency, urgency. No urinary retention. Musculoskeletal: No myalgias. No muscle weakness, no gait dysfunction, no frequent falls. No back pain. No neck pain. Integumentary: No wounds, no lesions. No rash or pruritus. No unusual bruising. No change in hair or nails. Neurologic: No aphasia. No facial droop. No change in mentation. No head injury. No headache. No paralysis. No paresthesia. Psychiatric: No depression. No anxiety. No mood swings. Endocrine: No abnormal blood sugars. No weight change. No excessive sweating or thirst. No cold intolerance. PHYSICAL EXAMINATION Gen: This is an 86-year-old female. She is resting in bed and appears to be comfortable and in no acute distress. Sclerae and all skin is jaundice. HEENT: Head is atraumatic, normocephalic. Pupils equal, round. Sclerae is icteric. NECK: Supple. No JVD. No lymphadenopathy. No thyromegaly. LUNGS: Clear to auscultation. No wheezes or rhonchi. No intercostal retractions. HEART: Regular rate and rhythm. No murmur. ABDOMEN: Soft. Bowel sounds are present. No masses. No tenderness. No palpable mass. EXTREMITIES: No pedal edema. No calf tenderness. NEUROLOGICAL: Patient is awake, alert and oriented to self. ASSESSMENT AND PLAN 1. Asymptomatic jaundice. GI consult appreciated, MRCP as above. Plan to transfer to [facility] ([facility]) for EUS/ERCP on Saturday. 2. Chronic systolic heart failure. Continue Lasix 40 mg oral twice daily, Lopressor 25 mg twice daily. 3. COPD without exacerbation. Continue DuoNeb treatments twice daily and as needed. 4. Advanced Alzheimer's dementia. Reorient patient. 5. Hypothyroidism. Continue levothyroxine 125 g daily. 6. Chronic atrial fibrillation. Continue eliquis 5 mg twice daily, digoxin 125 g daily, Lopressor 25 mg twice daily. 7. Bipolar disorder and schizophrenia. Continue Abilify 7 mg daily. 8. Gastroesophageal reflux disease disease and GI prophylaxis. Continue Pepcid 20 mg daily. 9. COVID-19 testing negative. Patient has been hospitalized during a pandemic. DISCHARGE PLAN transfer For to [facility], then Return to [facility]. Current Medications Acetaminophen (Acetaminophen Tab 500 Mg Tab) 500 mg PO BID PRN PRN Reason: Pain Albuterol/Ipratropium (Ipratropium-Albuterol 3 Ml Neb) 3 ml INHALATION RT-BID [facility] Last Admin: 05/20/21 09:12 Dose: Not Given Documented by: Albuterol/Ipratropium (Ipratropium-Albuterol 3 Ml Neb) 3 ml INHALATION RT-QID PRN PRN Reason: Cough/Congestion Aripiprazole (Aripiprazole 2 Mg Tab) 2 mg PO DAILY [facility] Last Admin: 05/20/21 08:34 Dose: 2 mg Documented by: Aripiprazole (Aripiprazole 5 Mg Tab) 5 mg PO DAILY [facility] Last Admin: 05/20/21 08:34 Dose: 5 mg Documented by: Artificial Tears (Artificial Tears-Hypromellose Drops 15 Ml Btl) 1 drops BOTH EYES TID [facility] Last Admin: 05/20/21 08:34 Dose: 1 drops Documented by: Bisacodyl (Bisacodyl 10 Mg Supp) 10 mg RECTAL DAILY PRN PRN Reason: Constipation Calcium Carbonate/Glycine (Calcium Carbonate 500 Mg Chewable) 500 mg PO DAILY [facility] Last Admin: 05/20/21 08:33 Dose: 500 mg Documented by: Digoxin (Digoxin 125 Mcg Tab) 125 mcg PO DAILY@0600 [facility] Last Admin: 05/20/21 06:06 Dose: 125 mcg Documented by: Ergocalciferol (Ergocalciferol 1,250 Mcg (50,000 Iu) Capsule) 1,250 mcg PO Q14D@1700 [facility] Famotidine (Famotidine 20 Mg Tab) 20 mg PO DAILY [facility] Last Admin: 05/20/21 08:34 Dose: 20 mg Documented by: Furosemide (Furosemide 40 Mg Tab) 40 mg PO DAILY [facility] Last Admin: 05/20/21 08:34 Dose: 40 mg Documented by: Insulin Aspart (Insulin Aspart (Novolog) 100 Unit/Ml Vial) 0 unit SQ ACHS [facility]; Protocol Last Admin: 05/20/21 11:48 Dose: Not Given Documented by: Ketotifen Fumarate (Ketotifen 0.025% Ophth Drops 5 Ml Btl) 1 drops BOTH EYES BID [facility] Last Admin: 05/20/21 08:35 Dose: 1 drops Documented by: Levothyroxine Sodium (Levothyroxine 125 Mcg Tab) 125 mcg PO DAILY@0630 [facility] Last Admin: 05/20/21 06:06 Dose: 125 mcg Documented by: Loratadine (Loratadine 10 Mg Tab) 10 mg PO DAILY [facility] Last Admin: 05/20/21 08:34 Dose: 10 mg Documented by: Magnesium Hydroxide (Magnesium Hydroxide 2,400 Mg/10 Ml Cup) 7,200 mg PO Q48H PRN PRN Reason: Constipation Metoprolol Tartrate (Metoprolol Tartrate 25 Mg Tab) 25 mg PO BID [facility] Last Admin: 05/20/21 08:34 Dose: 25 mg Documented by: Naloxone HCl (Naloxone 0.4 Mg/Ml 1 Ml Vial) 0.2 mg IV Q2M PRN PRN Reason: Opioid Reversal Ondansetron HCl (Ondansetron 4 Mg/2 Ml Vial) 4 mg IVP Q8HR PRN PRN Reason: Nausea And Vomiting Potassium Chloride (Potassium Chloride Er 10 Meq Tab.Er.Prt) 10 meq PO DAILY [facility] Last Admin: 05/20/21 08:34 Dose: 10 meq Documented by: Sodium Biphosphate/Sodium Phosphate (Na Phos,M-B/Na Phos,Di-Ba 133 Ml Enema) 133 ml RECTAL DAILY PRN PRN Reason: Constipation Abnormal Lab Results 05/19/21 05/19/21 05/19/21 12:05 12:30 17:06 POC Glucose (mg/dL) 149 H 205 H POC Glu Brush Clearing Laborer ID El, Blanca Gallegos, Blanca Coronavirus (PCR) Not Detected 05/19/21 05/20/21 05/20/21 21:09 07:06 11:27 POC Glucose (mg/dL) 119 H 144 H 147 H POC Glu Brush Clearing Laborer ID Mick Pratt, Mel Parsons Coronavirus (PCR) Vital Signs Temp 97.5 F L 05/20/21 08:00 Pulse 54 L 05/20/21 08:00 Resp 21 05/20/21 08:00 BP 118/78 05/20/21 08:00 Pulse Ox 98 05/20/21 08:00 Intake & Output 05/19/21 05/20/21 05/20/21 18:59 06:59 18:59 Intake Total 236 Output Total 200 Balance 236 -200 Intake: Oral 236 Output: Urine 200 Other: Voiding Method Diaper Incontinent External Catheter # Bowel Movements 0 Objective - Vital Signs Vital signs: Vital Signs Temp 97.5 F L 05/20/21 08:00 Pulse 54 L 05/20/21 08:00 Resp 21 05/20/21 08:00 BP 118/78 05/20/21 08:00 Pulse Ox 98 05/20/21 08:00 Intake & Output 05/19/21 05/20/21 05/20/21 18:59 06:59 18:59 Intake Total 236 Output Total 200 Balance 236 -200 Intake: Oral 236 Output: Urine 200 Other: Voiding Method Diaper Incontinent External Catheter # Bowel Movements 0 - Labs CBC & Chem 7: 05/17/21 10:45 05/19/21 06:16 Labs: Abnormal Lab Results - Last 24 Hours (Table) 05/19/21 05/19/21 05/19/21 Range/Units 12:05 17:06 21:09 POC Glucose (mg/dL) 149 H 205 H 119 H (75-99) mg/dL 05/20/21 05/20/21 Range/Units 07:06 11:27 POC Glucose (mg/dL) 144 H 147 H (75-99) mg/dL
[2021-05-20 14:42] VITALS: BP 117/69; PULSE 79; RESP 15; TEMP 98.3
[2021-05-20 16:25] LABS: Glucose,Whole Blood 174 mg/dL (75-99)
[2021-05-29] MEDS ORDERED: ERGOCALCIFEROL 1,250 MCG (50,000 IU) CAPSULE PO SCH (17:00)
== END 2021-05-20 18:31 | DRG 442 ==
LOC: EC 18:23 → EEVIPCON 21:47 → 4SSUR 21:47
PROVIDERS: ADMIT Family Medicine; ATTEND Family Medicine
PROC: 0FJB8ZZ Inspection of Hepatobiliary Duct, Via Natural or Artificial Opening Endoscopic (ICD-10-PCS; principal; 2021-05-16)
PROC: 0FJD8ZZ Inspection of Pancreatic Duct, Via Natural or Artificial Opening Endoscopic (ICD-10-PCS; 2021-05-16)
PROC: BF111ZZ Fluoroscopy of Biliary and Pancreatic Ducts using Low Osmolar Contrast (ICD-10-PCS; 2021-05-16)
DX: R17 Unspecified jaundice (principal); I48.20 Chronic atrial fibrillation, unspecified; I50.22 Chronic systolic (congestive) heart failure; Z16.24 Resistance to multiple antibiotics; E03.9 Hypothyroidism, unspecified; E78.5 Hyperlipidemia, unspecified; F02.80 Dementia in other diseases classified elsewhere, unspecified severity, without behavioral disturbance, psychotic disturbance, mood disturbance, and anxiety; F20.9 Schizophrenia, unspecified; F31.9 Bipolar disorder, unspecified; G30.9 Alzheimer's disease, unspecified; I11.0 Hypertensive heart disease with heart failure; I25.10 Atherosclerotic heart disease of native coronary artery without angina pectoris; J44.9 Chronic obstructive pulmonary disease, unspecified; K86.89 Other specified diseases of pancreas; Z20.822 Contact with and (suspected) exposure to COVID-19; Z75.1 Person awaiting admission to adequate facility elsewhere; Z79.01 Long term (current) use of anticoagulants; Z79.890 Hormone replacement therapy; Z79.899 Other long term (current) drug therapy; Z90.49 Acquired absence of other specified parts of digestive tract; Z86.718 Personal history of other venous thrombosis and embolism
CPT/HCPCS: 36415; 74177; 74183; 76700; 80053; 80074; 80143; 80162; 81003; 82105; 82140; 82378; 83690; 85025; 85027; 85610; 85730; 86301; 87635; 94640; 96360; 96361; 99285